=== PATIENT | female | born 1950 | race Two or more races ===

== ENCOUNTER 2018-03-25 15:00 | Outpatient (AMBR) | payer MEDICARE, MEDICAID, SELFPAY ==
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
--- NOTE | 2018-03-05 09:37 | PT.ODAYNRPT ---
PT Outpatient Daily Note Date of Service: March 05, 2018 OP Daily Note Visit Reasons: BALANCE Outpatient Physical Therapy Treatment Date: 03/05/18 Subjective: Pt reports she is walking further, around 2 miles a day and has lost weight. No falls lately. Objective: See F/S for therex NMR: parallel bar balance challenge with long airex with head turns, step over cones x15' Assessment: Balance challenged by looking up and down on uneven surface consistent with peripheral neuropathy and decreased proprioception. She catches toes on taller obstacles if she is not thinking about it. Plan: Continue per POC Length of Time (minutes) of Treatment: 30 Minutes Office Procedures PT Outpatient G-Codes Date of Service PT Date of Service: 02/18/18 G-Codes Walking & Moving Around Mobility Current Status G-Code: G8978: CJ 20-40% Mobility Status G-Code: G8979: CI 1-20% PT Procedures PT Date of Service: 02/18/18 OP PT Eval High Complex 45 minutes: Yes PT Procedures PT Date of Service: 03/05/18 Therapeutic Exercise 15 minutes: Yes Neuro Re-Education 15 Minutes: Yes
--- NOTE | 2018-03-25 16:19 | PT.ODAYNRPT ---
PT Outpatient Daily Note Date of Service: March 25, 2018 OP Daily Note Visit Reasons: BALANCE Outpatient Physical Therapy Treatment Date: 03/25/18 Subjective: No falls lately, saw provider who said to continue therapy. Objective: See F/S for therex NMR: parallel bar balance challenge with long airex with head turns, step over cones x15' Assessment: Balance challenged by looking up and down on uneven surface consistent with peripheral neuropathy and decreased proprioception. She catches toes on taller obstacles if she is not thinking about it. Plan: Continue per POC Length of Time (minutes) of Treatment: 30 Minutes Office Procedures PT Outpatient G-Codes Date of Service PT Date of Service: 02/18/18 G-Codes Walking & Moving Around Mobility Current Status G-Code: G8978: CJ 20-40% Mobility Status G-Code: G8979: CI 1-20% PT Procedures PT Date of Service: 02/18/18 OP PT Eval High Complex 45 minutes: Yes PT Procedures PT Date of Service: 03/05/18 Therapeutic Exercise 15 minutes: Yes Neuro Re-Education 15 Minutes: Yes PT Procedures PT Date of Service: 03/25/18 Therapeutic Exercise 15 minutes: Yes Neuro Re-Education 15 Minutes: Yes
== END 2018-03-25 16:00 | disposition home or self-care (01) ==
PROVIDERS: Visit Provider Orthopaedic Surgery
DX: R26.9 Unspecified abnormalities of gait and mobility (principal)
CPT/HCPCS: 97110; 97112; 97163; G8978; G8979

== ENCOUNTER 2018-04-07 16:30 | Outpatient (AMBR) | payer MEDICARE, MEDICAID, SELFPAY ==
--- NOTE | 2018-04-01 13:47 | PT.ODAYNRPT ---
PT Outpatient Daily Note Date of Service: April 01, 2018 OP Daily Note Visit Reasons: balance Outpatient Physical Therapy Treatment Date: 04/01/18 Subjective: About the same as always Objective: See F/S for therex NMR: PBar balance progression, long airex, tandem stance, step over obstacles x10' Assessment: Pt has LOB with head turns with NBOS. Plan: Continue per POC Length of Time (minutes) of Treatment: 30 Minutes Office Procedures PT Procedures PT Date of Service: 04/01/18 Therapeutic Exercise 15 minutes: Yes Neuro Re-Education 15 Minutes: Yes
--- NOTE | 2018-04-07 17:43 | PT.ODAYNRPT ---
PT Outpatient Daily Note Date of Service: April 07, 2018 OP Daily Note Visit Reasons: balance Outpatient Physical Therapy Treatment Date: 04/07/18 Subjective: Pt c/o intense R glute and posterior thigh pain that has limited walking tolerance today Objective: SEe F/S for therex MT: long axis hip distraction and PPM of hip into flexion and ERot x10' Mechanical traction: x13' L/S at 20 lbs Assessment: R LE pain seems to be consistent with lumbar radiculopathy which may also be affecting balance reactions and proprioception if she has DDD/stenosis. Good response to manual therapy of the hip and traction today to reduce LE pain. Pt may benefit from MRI of L/S. Plan: Continue per POC Length of Time (minutes) of Treatment: 40 Minutes Office Procedures PT Procedures PT Date of Service: 04/01/18 Therapeutic Exercise 15 minutes: Yes Neuro Re-Education 15 Minutes: Yes PT Procedures PT Date of Service: 04/07/18 Traction Mechanical: Yes Therapeutic Exercise 15 minutes: Yes Manual Real Estate Economist 15 minutes: Yes
--- NOTE | 2018-04-07 17:46 | PTNOTE_ITS ---
PT Outpatient Daily Note Date of Service: April 07, 2018 OP Daily Note Visit Reasons: balance Outpatient Physical Therapy Treatment Date: 04/07/18 Subjective: Pt c/o intense R glute and posterior thigh pain that has limited walking tolerance today Objective: SEe F/S for therex MT: long axis hip distraction and PPM of hip into flexion and ERot x10' Mechanical traction: x13' L/S at 20 lbs Assessment: R LE pain seems to be consistent with lumbar radiculopathy which may also be affecting balance reactions and proprioception if she has DDD/ stenosis. Good response to manual therapy of the hip and traction today to reduce LE pain. Pt may benefit from MRI of L/S. Plan: Continue per POC Length of Time (minutes) of Treatment: 40 Minutes Office Procedures PT Procedures PT Date of Service: 04/01/18 Therapeutic Exercise 15 minutes: Yes Neuro Re-Education 15 Minutes: Yes PT Procedures PT Date of Service: 04/07/18 Traction Mechanical: Yes Therapeutic Exercise 15 minutes: Yes Manual Candy Cutter Hand 15 minutes: Yes
== END 2018-04-29 23:59 ==
PROVIDERS: PCP Family Medicine; Referring Provider Family Medicine; Visit Provider Orthopaedic Surgery
DX: I10 Essential (primary) hypertension (principal)
CPT/HCPCS: 97012; 97110; 97112; 97140

== ENCOUNTER 2018-05-12 10:30 | Outpatient (AMBR) | payer MEDICARE, MEDICAID, SELFPAY ==
--- NOTE | 2018-05-05 18:30 | PT.ODS1RPT ---
PT OP Progress/Discharge Note Date of Service: May 05, 2018 Progress Note/DC Note Progress Note/Discharge Note: Progress Note Patient Information Visit Reasons: right hip pain Service Continue Service or Discharge: Continue Service Discharge Date: 05/05/18 Status Subjective: Pt reports improved balance, and that she hasn't fallen since starting therapy Objective: Tinetti score: 24/28 SL balance: R 6 seconds: L 5 seconds Tandem stance: no sway on even surfaces Assessment: Pt has attended 6/12 Rx visits and made good progress with therapy goals. She has improved SL standing balance to at least 5 seconds each. She can standard machine stitcher tandem stance for at least 10 seconds without sway but hasn't met goal of 20 seconds. Pt can stand on uneven surface for 5 seconds with sway so she hasn't met that goal of 10 seconds and would benefit from continued therapy. Plan: Continue with therapy to meet goals. Goals Achieved: See assessment Office Procedures PT Outpatient G-Codes Date of Service PT Date of Service: 05/05/18 G-Codes Walking & Moving Around Mobility Current Status G-Code: G8978: CJ 20-40% Mobility Status G-Code: G8979: CI 1-20% PT Procedures PT Date of Service: 05/05/18 Therapeutic Exercise 15 minutes: Yes Neuro Re-Education 15 Minutes: Yes
--- NOTE | 2018-05-05 18:33 | PTNOTE_ITS ---
PT OP Progress/Discharge Note Date of Service: May 05, 2018 Progress Note/DC Note Progress Note/Discharge Note: Progress Note Patient Information Visit Reasons: right hip pain Service Continue Service or Discharge: Continue Service Discharge Date: 05/05/18 Status Subjective: Pt reports improved balance, and that she hasn't fallen since starting therapy Objective: Tinetti score: 24/28 SL balance: R 6 seconds: L 5 seconds Tandem stance: no sway on even surfaces Assessment: Pt has attended 6/12 Rx visits and made good progress with therapy goals. She has improved SL standing balance to at least 5 seconds each. She can quarantine officer tandem stance for at least 10 seconds without sway but hasn't met goal of 20 seconds. Pt can stand on uneven surface for 5 seconds with sway so she hasn't met that goal of 10 seconds and would benefit from continued therapy. Plan: Continue with therapy to meet goals. Goals Achieved: See assessment Office Procedures PT Outpatient G-Codes Date of Service PT Date of Service: 05/05/18 G-Codes Walking & Moving Around Mobility Current Status G-Code: G8978: CJ 20-40% Mobility Status G-Code: G8979: CI 1-20% PT Procedures PT Date of Service: 05/05/18 Therapeutic Exercise 15 minutes: Yes Neuro Re-Education 15 Minutes: Yes
--- NOTE | 2018-05-10 11:11 | PT.ODAYNRPT ---
PT Outpatient Daily Note Date of Service: May 10, 2018 OP Daily Note Visit Reasons: right hip pain Outpatient Physical Therapy Treatment Date: 05/10/18 Subjective: Pt reports improved balance, and that she hasn't fallen since starting therapy Objective: See F/S for therex NMR: Balance challenges in parallel bars: EO/EC, head turns, NBOS, tandem stance on even and uneven surfaces x15' Assessment: Pt has improved SL standing balance to at least 5 seconds each. She can senior managing director tandem stance for at least 10 seconds without sway but hasn't met goal of 20 seconds. Pt can stand on uneven surface for 5 seconds with sway so she hasn't met that goal of 10 seconds and would benefit from continued therapy. Plan: Continue with therapy Length of Time (minutes) of Treatment: 30 Minutes Office Procedures PT Outpatient G-Codes Date of Service PT Date of Service: 05/05/18 G-Codes Walking & Moving Around Mobility Current Status G-Code: G8978: CJ 20-40% Mobility Status G-Code: G8979: CI 1-20% PT Procedures PT Date of Service: 05/05/18 Therapeutic Exercise 15 minutes: Yes Neuro Re-Education 15 Minutes: Yes PT Procedures PT Date of Service: 05/10/18 Therapeutic Exercise 15 minutes: Yes Neuro Re-Education 15 Minutes: Yes
--- NOTE | 2018-05-12 15:20 | PT.ODS1RPT ---
PT OP Progress/Discharge Note Date of Service: May 12, 2018 Progress Note/DC Note Progress Note/Discharge Note: DC Note Patient Information Visit Reasons: right hip pain Service Continue Service or Discharge: Discharge Discharge Date: 05/12/18 Certification Date Certification Dates: 02/18/18 to 05/19/18 Status Subjective: Pt reports improved balance, and that she hasn't fallen since starting therapy Objective: Objective: Tinetti score: 24/28 SL balance: R 6 seconds: L 5 seconds Tandem stance: no sway on even surfaces Assessment: Pt has attended 8/ Rx visits and made good progress with therapy goals. She has improved SL standing balance to at least 5 seconds each. She can customer service administrator tandem stance for at least 20 seconds without sway and has met goal of 20 seconds. Pt can stand on uneven surface for 10 seconds without sway she has met that goal of 10 seconds. Plan: D/C with HEP Office Procedures PT Outpatient G-Codes Date of Service PT Date of Service: 05/05/18 G-Codes Walking & Moving Around Mobility Current Status G-Code: G8978: CJ 20-40% Mobility Status G-Code: G8979: CI 1-20% PT Outpatient G-Codes Date of Service PT Date of Service: 05/12/18 G-Codes Walking & Moving Around Mobility Status G-Code: G8979: CI 1-20% Mobility DC Status G-Code: G8980: CI 1-20% PT Procedures PT Date of Service: 05/05/18 Therapeutic Exercise 15 minutes: Yes Neuro Re-Education 15 Minutes: Yes PT Procedures PT Date of Service: 05/10/18 Therapeutic Exercise 15 minutes: Yes Neuro Re-Education 15 Minutes: Yes PT Procedures PT Date of Service: 05/12/18 Therapeutic Exercise 15 minutes: Yes Neuro Re-Education 15 Minutes: Yes
--- NOTE | 2018-05-12 15:23 | PTNOTE_ITS ---
PT OP Progress/Discharge Note Date of Service: May 12, 2018 Progress Note/DC Note Progress Note/Discharge Note: DC Note Patient Information Visit Reasons: right hip pain Service Continue Service or Discharge: Discharge Discharge Date: 05/12/18 Certification Date Certification Dates: 02/18/18 to 05/19/18 Status Subjective: Pt reports improved balance, and that she hasn't fallen since starting therapy Objective: Objective: Tinetti score: 24/28 SL balance: R 6 seconds: L 5 seconds Tandem stance: no sway on even surfaces Assessment: Pt has attended 8/ Rx visits and made good progress with therapy goals. She has improved SL standing balance to at least 5 seconds each. She can marshmallow machine operator tandem stance for at least 20 seconds without sway and has met goal of 20 seconds. Pt can stand on uneven surface for 10 seconds without sway she has met that goal of 10 seconds. Plan: D/C with HEP Office Procedures PT Outpatient G-Codes Date of Service PT Date of Service: 05/05/18 G-Codes Walking & Moving Around Mobility Current Status G-Code: G8978: CJ 20-40% Mobility Status G-Code: G8979: CI 1-20% PT Outpatient G-Codes Date of Service PT Date of Service: 05/12/18 G-Codes Walking & Moving Around Mobility Status G-Code: G8979: CI 1-20% Mobility DC Status G-Code: G8980: CI 1-20% PT Procedures PT Date of Service: 05/05/18 Therapeutic Exercise 15 minutes: Yes Neuro Re-Education 15 Minutes: Yes PT Procedures PT Date of Service: 05/10/18 Therapeutic Exercise 15 minutes: Yes Neuro Re-Education 15 Minutes: Yes PT Procedures PT Date of Service: 05/12/18 Therapeutic Exercise 15 minutes: Yes Neuro Re-Education 15 Minutes: Yes
== END 2018-05-29 23:59 | disposition home or self-care (01) ==
PROVIDERS: PCP Family Medicine; Referring Provider Family Medicine; Visit Provider Orthopaedic Surgery
DX: I10 Essential (primary) hypertension (principal)
CPT/HCPCS: 97110; 97112; G8978; G8979; G8980

== ENCOUNTER 2021-05-24 10:29 | Outpatient (AMBR) | payer MEDICARE, MEDICAID, SELFPAY ==
--- NOTE | 2021-05-16 12:51 | PT.OIERPT ---
PT OP Initial Eval Patient Information Visit Reasons: FRACTURE OF DISTAL END OF LEFT ULNA Medical Diagnosis: S52.602A Treatment Dx #1: Left Wrist Mobility Deficits Treatment Dx #2: Left Wrist Weakness Start of Care: 05/16/21 Date of Onset: 04/02/21 Initial Assessment Subjective Pt is a 70 y/o female s/p left distal ulna and radius ORIF 04/02/21 after she fell and fracture both bones while on vacation in [place]. Pt still has pain (6/10) with activities. Pt has limitation with gripping, lifting, self care, cooking, cleaning, chores, recreational activtiies, and performing normal ADLs. Objective Left Wrist AROM Flexion: 34 deg Extension: 42 deg Supination: 41 deg Pronation: 74 deg Ulnar Deviation: 8 deg Radial Deviation: 18 deg Left Wrist MMTs: grossly 3-/5 Left UE AROM: all motions are WFL Left Shoulder MMTs: grossly 3/5 Instructional Support Services Director Strength R: 23 lbs L: 19 lbs Assessment Pt demonstrate left wrist mobility and strength deficits s/p surgery leading to decline function. Pt will benefit from physical therapy to increase ROM, strength, and work on functional strength. Short Term and Long-Term Goals 1) Increase left assembler lay ups strength to 23 lbs in 6 wks to be able to perform gripping activities 2) Increase left wrist AROM WFL in 6 wks to be able to perform self care activities 3) Increase left wrist MMTs grossly to 3+/5 in 6 wks to be able to perform chores 4) Decrase pain to 2/10 in 6 wks to be able to perform recreational activities 5) Indep with HEP Treatment Plan 1) Manual Therapy 2) Therapeutic Activities 3) Therapeutic Exercises 4) Modalities (ice, heat) Frequency and Duration 2 x wk for 6 wks Certification Dates: 05/16/21 to 08/16/21 Office Procedures PT Procedures PT Date of Service: 05/16/21 OP PT Eval Mod Complex 30 minutes: Yes
--- NOTE | 2021-05-22 12:52 | PT.ODAYNRPT ---
PT Outpatient Daily Note Date of Service: 05/22/21 OP Daily Note Visit Reasons: FRACTURE OF DISTAL END OF LEFT ULNA Outpatient Physical Therapy Treatment Date: 05/22/21 Subjective: Pt will be seeing the surgeon in a few days. Pt's wrist feesl pretty good. Objective: Please see flow chart for list of ther ex performed Assessment: tolerate exercises without increase wrist pain Plan: Continue with PT Length of Time (minutes) of Treatment: 30 Minutes Office Procedures PT Procedures PT Date of Service: 05/22/21 Therapeutic Exercise 30 minutes: Yes PT Procedures PT Date of Service: 05/16/21 OP PT Eval Mod Complex 30 minutes: Yes
--- NOTE | 2021-05-24 11:38 | PT.ODAYNRPT ---
PT Outpatient Daily Note Date of Service: 05/24/21 OP Daily Note Visit Reasons: FRACTURE OF DISTAL END OF LEFT ULNA Outpatient Physical Therapy Treatment Date: 05/24/21 Subjective: Pt's wrist feels good. Pt [place] the night [place] Objective: Please see flow chart for list of ther ex performed Assessment: tolerate exercises performed Plan: Continue with PT Length of Time (minutes) of Treatment: 30 Minutes Office Procedures PT Procedures PT Date of Service: 05/22/21 Therapeutic Exercise 30 minutes: Yes PT Procedures PT Date of Service: 05/24/21 Therapeutic Exercise 30 minutes: Yes PT Procedures PT Date of Service: 05/16/21 OP PT Eval Mod Complex 30 minutes: Yes
== END 2021-05-29 23:59 | disposition home or self-care (01) ==
PROVIDERS: PCP Internal Medicine; Referring Provider Internal Medicine; Visit Provider Surgery Surgery of the Hand
DX: S52.602D Unspecified fracture of lower end of left ulna, subsequent encounter for closed fracture with routine healing (principal); M25.532 Pain in left wrist; R53.1 Weakness; W19.XXXD Unspecified fall, subsequent encounter
CPT/HCPCS: 97110; 97162

== ENCOUNTER 2021-06-26 11:33 | Outpatient (AMBR) | payer MEDICARE, MEDICAID, SELFPAY ==
--- NOTE | 2021-06-04 11:25 | PT.ODAYNRPT ---
PT Outpatient Daily Note Date of Service: 06/04/21 OP Daily Note Visit Reasons: FRACTURE OF DISTAL END OF LEFT ULNA Outpatient Physical Therapy Treatment Date: 06/04/21 Subjective: Pt stated little sore from last time, but good otherwise I can move it a little more than last time Objective: Please see flowsheet for therex performed Assessment: pt performed therex well with increased motion in wrist supination and pronation. Pt showed good strength this visit with tolerating increase resistance with wrist extension exercise progressing from yellow to red theraputty. Pt's is making progress towards her strength and ROM each session. Plan: Continue with POC Length of Time (minutes) of Treatment: 30 Minutes Office Procedures PT Procedures PT Date of Service: 06/04/21 Therapeutic Exercise 30 minutes: Yes
--- NOTE | 2021-06-06 11:52 | PT.ODAYNRPT ---
PT Outpatient Daily Note Date of Service: 06/06/21 OP Daily Note Visit Reasons: FRACTURE OF DISTAL END OF LEFT ULNA Outpatient Physical Therapy Treatment Date: 06/06/21 Subjective: Pt's wrist feels good no pain today. Objective: Please see flow chart for list of ther ex performed Assessment: added more resistance and change to red resistance with all hand/wrist exercise with good tolerance. Plan: Continue with PT Length of Time (minutes) of Treatment: 30 Minutes Office Procedures PT Procedures PT Date of Service: 06/04/21 Therapeutic Exercise 30 minutes: Yes PT Procedures PT Date of Service: 06/06/21 Therapeutic Exercise 30 minutes: Yes
--- NOTE | 2021-06-14 11:29 | PT.ODAYNRPT ---
PT Outpatient Daily Note Date of Service: 06/14/21 OP Daily Note Visit Reasons: FRACTURE OF DISTAL END OF LEFT ULNA Outpatient Physical Therapy Treatment Date: 06/14/21 Subjective: Pt's wrist feels good no pain today. Objective: Please see flow chart for list of ther ex performed AROM L wrist: Flexion: 55 deg Extension: 50 deg Assessment: Pt able to do green gripper today without pain in the wrist and she can make a full fist. Good fine motor control with manipulating objects and with therex. Plan: Continue with POC Length of Time (minutes) of Treatment: 30 Minutes Office Procedures PT Procedures PT Date of Service: 06/04/21 Therapeutic Exercise 30 minutes: Yes PT Procedures PT Date of Service: 06/06/21 Therapeutic Exercise 30 minutes: Yes PT Procedures PT Date of Service: 06/14/21 Therapeutic Exercise 30 minutes: Yes
--- NOTE | 2021-06-18 15:39 | PT.ODAYNRPT ---
PT Outpatient Daily Note Date of Service: 06/18/21 OP Daily Note Visit Reasons: FRACTURE OF DISTAL END OF LEFT ULNA Outpatient Physical Therapy Treatment Date: 06/18/21 Subjective: Pt's wrist feels good little pain today. Increased pain with dumbbell pronation/supination Objective: Please see flow chart for list of ther ex performed AROM L wrist: Flexion: 55 deg Extension: 50 deg Assessment: Pt able to do green gripper today without pain in the wrist and she can make a full fist. Good fine motor control with manipulating objects and with therex. Plan: Continue with POC Length of Time (minutes) of Treatment: 30 Minutes Office Procedures PT Procedures PT Date of Service: 06/04/21 Therapeutic Exercise 30 minutes: Yes PT Procedures PT Date of Service: 06/06/21 Therapeutic Exercise 30 minutes: Yes PT Procedures PT Date of Service: 06/14/21 Therapeutic Exercise 30 minutes: Yes
--- NOTE | 2021-06-18 15:47 | PT.ODS1RPT ---
PT OP Progress/Discharge Note Date of Service: 06/18/21 Progress Note/DC Note Progress Note/Discharge Note: Progress Note Patient Information Visit Reasons: FRACTURE OF DISTAL END OF LEFT ULNA Service Continue Service or Discharge: Continue Service Status Subjective: Pt is doing ADL's with low wrist pain. Increased pain with dumbbell pronation/supination. The ulnar styloid isn't TTP but hurts with (resisted radial deviation) Objective: L wrist ArOM: Strength: Flexion: 34 deg 4-/5 Extension: 52 deg 4-/5 Supination: 80 deg 4-/5 Pronation: 90 deg 4-/5 Assessment: Pt has attended the eval and 6 Rx visits and made progress with therapy goals. Pt has improved wrist extension ROM since the evaluation and strength has improved in all planes of motion. Pt would benefit from continued therapy to improve ROM into wrist flexion and strength of wrist to meet goals. Plan: Continue per POC Office Procedures PT Procedures PT Date of Service: 06/04/21 Therapeutic Exercise 30 minutes: Yes PT Procedures PT Date of Service: 06/06/21 Therapeutic Exercise 30 minutes: Yes PT Procedures PT Date of Service: 06/14/21 Therapeutic Exercise 30 minutes: Yes PT Procedures PT Date of Service: 06/18/21 Therapeutic Exercise 30 minutes: Yes
--- NOTE | 2021-06-26 17:12 | PT.ODAYNRPT ---
PT Outpatient Daily Note Date of Service: 06/26/21 OP Daily Note Visit Reasons: FRACTURE OF DISTAL END OF LEFT ULNA Outpatient Physical Therapy Treatment Date: 06/26/21 Subjective: Pt is doing ADL's with low wrist pain. Increased pain with dumbbell pronation/supination. The ulnar styloid isn't TTP but hurts with (resisted radial deviation) Objective: See F/S for therex MT: STM dorsal wrist and PPm into wrist flexion to first resistance x10' total Diving Instructor strength: L 20 lbs R: 18 lbs Assessment: Pt has ROM limitations into wrist flexion and TTP of dorsal joint line but unaffected wrist flexion isn't much greater than L and fruit harvest machine operator strength is actually better on L than R. Plan: Continue per POC Length of Time (minutes) of Treatment: 30 Minutes Office Procedures PT Procedures PT Date of Service: 06/04/21 Therapeutic Exercise 30 minutes: Yes PT Procedures PT Date of Service: 06/06/21 Therapeutic Exercise 30 minutes: Yes PT Procedures PT Date of Service: 06/14/21 Therapeutic Exercise 30 minutes: Yes PT Procedures PT Date of Service: 06/18/21 Therapeutic Exercise 30 minutes: Yes PT Procedures PT Date of Service: 06/26/21 Therapeutic Exercise 15 minutes: Yes Manual Head Animal Trainer 15 minutes: Yes
== END 2021-06-29 23:59 | disposition home or self-care (01) ==
PROVIDERS: PCP Internal Medicine; Referring Provider Internal Medicine; Visit Provider Internal Medicine
DX: S52.602D Unspecified fracture of lower end of left ulna, subsequent encounter for closed fracture with routine healing (principal); M25.532 Pain in left wrist; R53.1 Weakness; X58.XXXD Exposure to other specified factors, subsequent encounter
CPT/HCPCS: 97110; 97140

== ENCOUNTER 2021-07-11 10:56 | Outpatient (AMBR) | payer MEDICARE, MEDICAID, SELFPAY ==
--- NOTE | 2021-07-02 16:08 | PT.OIERPT ---
PT OP Initial Eval Patient Information Visit Reasons: FRACTURE OF DISTAL END OF LEFT ULNA Start of Care: 07/02/21
--- NOTE | 2021-07-02 18:01 | PT.ODAYNRPT ---
PT Outpatient Daily Note Date of Service: 07/02/21 OP Daily Note Visit Reasons: FRACTURE OF DISTAL END OF LEFT ULNA Outpatient Physical Therapy Treatment Date: 07/02/21 Subjective: The hand and wrist are working with ADL's but it doesn't flex very much. Objective: See F/S for therex MT: PPM into wrist flexion with overpressure x7' Assessment: Pt has improved wrist strength and ROM into extension but flexion is limited. Improved PROM into wrist flexion today to almost equal the R wrist. Plan: continue per POC Length of Time (minutes) of Treatment: 30 Minutes Office Procedures PT Procedures PT Date of Service: 07/02/21 Therapeutic Exercise 30 minutes: Yes
--- NOTE | 2021-07-05 11:55 | PTNOTE_ITS ---
PT Outpatient Daily Note Date of Service: 07/05/2021 OP Daily Note Visit Reasons: FRACTURE OF DISTAL END OF LEFT ULNA Outpatient Physical Therapy Treatment Date: 07/05/21 Subjective: pt states she has difficulty with flexing the wrist and is not sure the reason. Objective: see flow sheet. Assessment: pt able to perform the wrist using 1# DB but after a few reps she compensates with elbow activation. she had no complaints with the weight during all ther ex. she did have more difficulty with thera bar exercise due to wea kness. attempted to isolate the L hand with thera bar exercise but not able to fully perform the motion. Plan: continue POC per PT. Length of Time (minutes) of Treatment: 30 Minutes CIRCUIT RECORDER Service Modifier Method I: Divide the number of min of care provided by the CIRCUIT RECORDER/SUPERVISOR PARACHUTE MANUFACTURING by the total min of care provided then multiply by 100. If greater than 11 percent modifier is required. Method II: Divide the total time of care provided to patient by 10 (round to the nearest whole number) and add 1 min. to set the minimum time requirement. If treatment total was 60 min., then 10% of 6 min Did CIRCUIT RECORDER provide more than 10% of the care?: Yes PT CQ modifier applied: CQ Modifier applied Office Procedures PT Procedures PT Date of Service: 07/02/21 Therapeutic Exercise 30 minutes: Yes PT Procedures PT Date of Service: 07/05/21 Therapeutic Exercise 30 minutes: Yes
--- NOTE | 2021-07-09 12:24 | PT.ODAYNRPT ---
PT Outpatient Daily Note Date of Service: 07/09/21 OP Daily Note Visit Reasons: FRACTURE OF DISTAL END OF LEFT ULNA Outpatient Physical Therapy Treatment Date: 07/02/21 Subjective: The hand and wrist are working with ADL's but it doesn't flex it very much. Objective: See F/S for therex Assessment: Pt has improved wrist strength and ROM into extension but flexion is limited. Improved PROM into wrist flexion today to almost equal the R wrist. Plan: continue per POC Length of Time (minutes) of Treatment: 30 Minutes Office Procedures PT Procedures PT Date of Service: 07/02/21 Therapeutic Exercise 30 minutes: Yes PT Procedures PT Date of Service: 07/09/21 Therapeutic Exercise 30 minutes: Yes PT Procedures PT Date of Service: 07/05/21 Therapeutic Exercise 30 minutes: Yes
--- NOTE | 2021-07-11 15:15 | PT.ODS1RPT ---
PT OP Progress/Discharge Note Date of Service: 07/11/21 Progress Note/DC Note Progress Note/Discharge Note: DC Note Patient Information Visit Reasons: FRACTURE OF DISTAL END OF LEFT ULNA Service Continue Service or Discharge: Discharge Discharge Date: 07/11/21 Status Subjective: Pt is doing ADL's with low wrist pain. Increased pain with dumbbell pronation/supination. The ulnar styloid isn't TTP but hurts with (resisted radial deviation) Objective: L wrist ArOM: Strength: Flexion: 34 deg 4-/5 Extension: 70 deg 4-/5 Supination: 80 deg 4-/5 Pronation: 90 deg 4-/5 Associate Financial Representative strength: R: 15 lbs, L: 25 lbs Assessment: Pt has attended the eval and 11 Rx visits and has made progress with therapy goals. Pt has significantly improved wrist extension ROM since the evaluation and strength has improved in all planes of motion especially ceo and president strength. L wrist flexion is about the same as the R. Plan: D/C with [facility] Office Procedures PT Procedures PT Date of Service: 07/02/21 Therapeutic Exercise 30 minutes: Yes PT Procedures PT Date of Service: 07/09/21 Therapeutic Exercise 30 minutes: Yes PT Procedures PT Date of Service: 07/05/21 Therapeutic Exercise 30 minutes: Yes PT Procedures PT Date of Service: 07/11/21 Therapeutic Exercise 30 minutes: Yes
== END 2021-07-30 23:59 | disposition home or self-care (01) ==
PROVIDERS: PCP Internal Medicine; Referring Provider Internal Medicine; Visit Provider Internal Medicine
DX: S52.602D Unspecified fracture of lower end of left ulna, subsequent encounter for closed fracture with routine healing (principal); M25.532 Pain in left wrist; R53.1 Weakness; W19.XXXD Unspecified fall, subsequent encounter
CPT/HCPCS: 97110

== ENCOUNTER → 2024-10-03 | Outpatient (CLI) | payer MEDICARE, BC, SELFPAY ==
[2024-10-03 11:56] LABS: Albumin, Serum 3.9 gm/dL (3.4-4.8); Anion Gap 6 (7-16); BUN/Creatinine Ratio 15 Ratio (12-20); Blood Urea Nitrogen 17 mg/dL (9-23); Calcium 8.9 mg/dL (8.3-10.6); Carbon Dioxide 27.8 mMol/L (20.0-31.0); Chloride 104 mMol/L (98-107); Creatinine (Component) 1.1 mg/dL (0.6-1.3); Glucose 165 mg/dL (74-106); Osmolality,Calculated 281 (275-295); Phosphorous 3.3 mg/dL (2.4-5.1); Potassium 4.5 mMol/L (3.4-5.1); Sodium 138 mMol/L (136-145); eGFR 52 See Note
== END | disposition home or self-care (01) ==
PROVIDERS: PCP Internal Medicine; Referring Provider Internal Medicine Cardiovascular Disease; Visit Provider Internal Medicine Cardiovascular Disease
DX: I20.89 Other forms of angina pectoris (principal)
CPT/HCPCS: 36415; 80069

== ENCOUNTER → 2024-10-03 | Outpatient (CLI) | payer MEDICARE, BC, SELFPAY | END | disposition home or self-care (01) | PROVIDERS: PCP Internal Medicine; Referring Provider Internal Medicine; Visit Provider Student in an Organized Health Care Education/Training Program | DX: I87.311 Chronic venous hypertension (idiopathic) with ulcer of right lower extremity (principal); L97.311 Non-pressure chronic ulcer of right ankle limited to breakdown of skin; L97.511 Non-pressure chronic ulcer of other part of right foot limited to breakdown of skin; I10 Essential (primary) hypertension; E11.621 Type 2 diabetes mellitus with foot ulcer; Z79.4 Long term (current) use of insulin; I73.9 Peripheral vascular disease, unspecified; E03.9 Hypothyroidism, unspecified | CPT/HCPCS: 99213; G0463 ==

== ENCOUNTER → 2024-10-12 | Outpatient (CLI) | payer MEDICARE, BC, SELFPAY ==
[2024-10-12 13:17] LABS: Basophils % (Auto) 0 % (0-2.5); Eosinophils % (Auto) 0 % (0-10); Hematocrit 29.1 % (36.0-46.0); Hemoglobin 9.3 g/dL (12.0-16.0); Immature Granulocytes % (Auto) 1 % (0-0); Immature Granulocytes Auto 0.08 Thou/mm3 (0.00-0.00); Lymphocytes # (Auto) 2.8 Thou/mm3 (1.0-4.8); Lymphocytes % (Auto) 19 % (10-50); Mean Corpuscular Hemoglobin 31.5 pg (25.0-35.0); Mean Corpuscular Volume 99 fL (80-100); Monocytes # (Auto) 1.2 Thou/mm3 (0.0-0.8); Monocytes % (Auto) 9 % (0-12); Neutrophils # (Auto) 10.3 Thou/mm3 (1.8-7.7); Neutrophils % (Auto) 71 % (37-80); Nucleated Red Blood Cell % 0 /100 WBC (0); Platelet Count 338 Thou/mm3 (140-440); RDW Standard Deviation 53.8 fL (36.4-46.3); Red Blood Count 2.95 Miln/mm3 (4.00-5.20); White Blood Count 14.5 Thou/mm3 (3.6-11.0)
== END | disposition home or self-care (01) ==
LOC: COPL 12:14
PROVIDERS: PCP Internal Medicine; Referring Provider Nurse Practitioner Family; Visit Provider Nurse Practitioner Family
DX: R10.31 Right lower quadrant pain (principal)
CPT/HCPCS: 36415; 85025

== ENCOUNTER 2024-10-20 11:30 | Outpatient (RCR) | payer MEDICARE, BC, SELFPAY ==
--- NOTE | 2024-10-03 13:26 | PT.ODAYNRPT ---
PT Outpatient Daily Note OP Daily Note Outpatient Physical Therapy Treatment Date: 10/03/24 Visit Reasons: Weakness of both lower extremities Subjective: Pt walks 10x around her apartment complex. Pt mention her legs continues to hurt and denies of any back pain Objective: Please see flow chart for list of ther ex performed Assessment: cues to pace with exercises to conserve energy and decrease BLE fatigue. Plan: Continue with PT Length of Time (minutes) of Treatment: 30 Minutes Procedure Charges Therapeutic Exercise 30 minutes: Yes
--- NOTE | 2024-10-05 10:46 | PTNOTE_ITS ---
PT Outpatient Daily Note OP Daily Note Outpatient Physical Therapy Treatment Date: 10/05/24 Visit Reasons: Weakness of both lower extremities Subjective: No new concerns or complaints. Objective: Please see flow sheet for ther ex list. Assessment: Interventions given alternating supine, sitting and standing to maximize pt participation. Near end of session pt c/o R ankle pain. Plan: Continue with POC. Length of Time (minutes) of Treatment: 30 Minutes EVIDENCE TECHNICIAN Service Modifier Method I: Divide the number of min of care provided by the EVIDENCE TECHNICIAN/JULIETH by the total min of care provided then multiply by 100. If greater than 11 percent modifier is required. Method II: Divide the total time of care provided to patient by 10 (round to the nearest whole number) and add 1 min. to set the minimum time requirement. If treatment total was 60 min., then 10% of 6 min PT CQ modifier applied: CQ Modifier applied Procedure Charges Therapeutic Exercise 30 minutes: Yes
--- NOTE | 2024-10-11 13:28 | PT.ODAYNRPT ---
PT Outpatient Daily Note OP Daily Note Outpatient Physical Therapy Treatment Date: 10/11/24 Visit Reasons: Weakness of both lower extremities Subjective: No new complaints or concerns. Objective: Please see flow sheet for ther ex list. Assessment: Pt performed STS with mod HIDE EXAMINER, pt not able to perform without UE assist. Plan: Continue with POC. Assess response to treatment. Length of Time (minutes) of Treatment: 30 Minutes PRIVATE BRANCH EXCHANGE SERVICE ADVISOR Service Modifier Method I: Divide the number of min of care provided by the PRIVATE BRANCH EXCHANGE SERVICE ADVISOR/MANAGER CASE by the total min of care provided then multiply by 100. If greater than 11 percent modifier is required. Method II: Divide the total time of care provided to patient by 10 (round to the nearest whole number) and add 1 min. to set the minimum time requirement. If treatment total was 60 min., then 10% of 6 min PT CQ modifier applied: CQ Modifier applied Procedure Charges Therapeutic Exercise 30 minutes: Yes
--- NOTE | 2024-10-13 11:41 | PT.ODAYNRPT ---
PT Outpatient Daily Note OP Daily Note Outpatient Physical Therapy Treatment Date: 10/13/24 Visit Reasons: Weakness of both lower extremities Subjective: Pt content to share that she can walk short distance at home without FWW. Objective: Please see flow sheet for ther ex list. Assessment: Pt demonstrates increase endurance with closed chain interventions indicated by less rest breaks and no WHEEL AND AXLE INSPECTOR with GT in bars. Plan: Continue with POC. Length of Time (minutes) of Treatment: 30 Minutes RF DESIGN ENGINEER Service Modifier Method I: Divide the number of min of care provided by the RF DESIGN ENGINEER/PROCESS ENVIRONMENTAL TECHNICIAN by the total min of care provided then multiply by 100. If greater than 11 percent modifier is required. Method II: Divide the total time of care provided to patient by 10 (round to the nearest whole number) and add 1 min. to set the minimum time requirement. If treatment total was 60 min., then 10% of 6 min PT CQ modifier applied: CQ Modifier applied Procedure Charges Therapeutic Exercise 30 minutes: Yes
--- NOTE | 2024-10-17 13:32 | PTNOTE_ITS ---
PT Outpatient Daily Note OP Daily Note Outpatient Physical Therapy Treatment Date: 10/17/24 Visit Reasons: Weakness of both lower extremities Subjective: Pt reports she feels some progress with LE strength but notices her R foot pain limits her when it comes to ambulating longer distance. Objective: Please see flow sheet for ther ex list. Assessment: Pt performed increase reps for GT in parallel bars with no ELECTRONICS PROCESSOR indicating progress. Pt educated on bringing tennis shoes for safety, pt comes to PT with oversized slippers increase fall risk. Plan: Continue with pOC. Length of Time (minutes) of Treatment: 30 Minutes DRIVER LICENSE AGENT Service Modifier Method I: Divide the number of min of care provided by the DRIVER LICENSE AGENT/JULIETH by the total min of care provided then multiply by 100. If greater than 11 percent modifier is required. Method II: Divide the total time of care provided to patient by 10 (round to the nearest whole number) and add 1 min. to set the minimum time requirement. If treatment total was 60 min., then 10% of 6 min PT CQ modifier applied: CQ Modifier applied Procedure Charges Therapeutic Exercise 30 minutes: Yes
--- NOTE | 2024-10-20 13:02 | PT.ODAYNRPT ---
PT Outpatient Daily Note OP Daily Note Outpatient Physical Therapy Treatment Date: 10/20/24 Visit Reasons: Weakness of both lower extremities Subjective: Pt reports she is having more pain on her R foot today, feels it might be due to the cold weather. Objective: Please see flow sheet for ther ex list. Assessment: Pt demonstrates decrease endurance and poor activity tolerance due to pain in R ankle. Plan: Continue with POC. Length of Time (minutes) of Treatment: 30 Minutes ELECTRICAL SUPERINTENDENT Service Modifier Method I: Divide the number of min of care provided by the ELECTRICAL SUPERINTENDENT/LEAD CASTER by the total min of care provided then multiply by 100. If greater than 11 percent modifier is required. Method II: Divide the total time of care provided to patient by 10 (round to the nearest whole number) and add 1 min. to set the minimum time requirement. If treatment total was 60 min., then 10% of 6 min PT CQ modifier applied: CQ Modifier applied Procedure Charges Therapeutic Exercise 30 minutes: Yes
== END 2024-10-29 23:59 | disposition home or self-care (01) ==
LOC: CPTX 11:30
PROVIDERS: PCP Internal Medicine; Referring Provider Internal Medicine; Visit Provider Internal Medicine
DX: R53.1 Weakness (principal); R29.898 Other symptoms and signs involving the musculoskeletal system; R26.2 Difficulty in walking, not elsewhere classified; M51.369 Other intervertebral disc degeneration, lumbar region without mention of lumbar back pain or lower extremity pain
CPT/HCPCS: 97110

== ENCOUNTER → 2024-10-31 | Outpatient (CLI) | payer MEDICARE, BC, SELFPAY | END | disposition home or self-care (01) | LOC: SWHD 09:25 | PROVIDERS: PCP Internal Medicine; Referring Provider Internal Medicine; Visit Provider Student in an Organized Health Care Education/Training Program | DX: I87.311 Chronic venous hypertension (idiopathic) with ulcer of right lower extremity (principal); L97.318 Non-pressure chronic ulcer of right ankle with other specified severity; I10 Essential (primary) hypertension; E11.621 Type 2 diabetes mellitus with foot ulcer; Z79.4 Long term (current) use of insulin; I73.9 Peripheral vascular disease, unspecified; E03.9 Hypothyroidism, unspecified | CPT/HCPCS: 99213; G0463 ==

== ENCOUNTER → 2024-11-07 | Outpatient (CLI) | payer MEDICARE, BC, SELFPAY | END | disposition home or self-care (01) | LOC: SWHD 09:24 | PROVIDERS: PCP Internal Medicine; Referring Provider Internal Medicine; Visit Provider Surgery | DX: I87.311 Chronic venous hypertension (idiopathic) with ulcer of right lower extremity (principal); L97.312 Non-pressure chronic ulcer of right ankle with fat layer exposed; I10 Essential (primary) hypertension; E11.621 Type 2 diabetes mellitus with foot ulcer; Z79.4 Long term (current) use of insulin; I73.9 Peripheral vascular disease, unspecified; E03.9 Hypothyroidism, unspecified | CPT/HCPCS: 11042; A9270 ==

== ENCOUNTER → 2024-11-14 | Outpatient (CLI) | payer MEDICARE, BC, SELFPAY | END | disposition home or self-care (01) | LOC: SWHD 09:29 | PROVIDERS: PCP Internal Medicine; Referring Provider Internal Medicine; Visit Provider Student in an Organized Health Care Education/Training Program | DX: I87.311 Chronic venous hypertension (idiopathic) with ulcer of right lower extremity (principal); L97.312 Non-pressure chronic ulcer of right ankle with fat layer exposed; I10 Essential (primary) hypertension; E11.621 Type 2 diabetes mellitus with foot ulcer; Z79.4 Long term (current) use of insulin; I73.9 Peripheral vascular disease, unspecified; E03.9 Hypothyroidism, unspecified | CPT/HCPCS: 11042; A9270 ==

== ENCOUNTER 2024-11-17 13:00 | Outpatient (RCR) | payer MEDICARE, BC, SELFPAY ==
--- NOTE | 2024-11-01 10:52 | PT.ODAYNRPT ---
PT Outpatient Daily Note OP Daily Note Outpatient Physical Therapy Treatment Date: 11/01/24 Visit Reasons: weakness of both lower extremities Subjective: Ptg reports feeling stronger in her legs and more confident when walking but still is limited due to R ankle pain. Pt shared that she received injection in her ankle few weeks ago but did not help. Objective: Please see flow sheet for ther ex list. Assessment: Pt performed hurdles exercise with minimal to no RICKSHAW DRIVER. Plan: Assess response to treatment. Length of Time (minutes) of Treatment: 30 Minutes EXECUTIVE STEWARD Service Modifier Method I: Divide the number of min of care provided by the EXECUTIVE STEWARD/JULIETH by the total min of care provided then multiply by 100. If greater than 11 percent modifier is required. Method II: Divide the total time of care provided to patient by 10 (round to the nearest whole number) and add 1 min. to set the minimum time requirement. If treatment total was 60 min., then 10% of 6 min PT CQ modifier applied: CQ Modifier applied Procedure Charges Therapeutic Exercise 30 minutes: Yes
--- NOTE | 2024-11-03 11:08 | PT.ODAYNRPT ---
PT Outpatient Daily Note OP Daily Note Outpatient Physical Therapy Treatment Date: 11/03/24 Visit Reasons: weakness of both lower extremities Subjective: Pt reports she feels more confident walking short distance without AD. Objective: Please see flow sheet for ther ex list. Assessment: Pt demonstrates increase endurance indicated by decrease seated rest breaks during closed chain interventions. Plan: Continue with POC. Length of Time (minutes) of Treatment: 30 Minutes HIGH SCHOOL MUSIC TEACHER Service Modifier Method I: Divide the number of min of care provided by the HIGH SCHOOL MUSIC TEACHER/JULIETH by the total min of care provided then multiply by 100. If greater than 11 percent modifier is required. Method II: Divide the total time of care provided to patient by 10 (round to the nearest whole number) and add 1 min. to set the minimum time requirement. If treatment total was 60 min., then 10% of 6 min PT CQ modifier applied: CQ Modifier applied Procedure Charges Therapeutic Exercise 30 minutes: Yes
--- NOTE | 2024-11-08 13:43 | PT.ODS1RPT ---
PT OP Progress/Discharge Note Date of Service: 11/08/24 Progress Note/DC Note Progress Note/Discharge Note: Progress Note Patient Information Visit Reasons: weakness of both lower extremities Medical Diagnosis: R29.898 Treatment Dx #1: BLE Weakness Service Continue Service or Discharge: Continue Service Status Subjective: Pt's legs still feels weak. Pt has been able to drive, stand, and walk with less limitation. Pt denies of any falls recently. Pt wants to continue to work on endurance and BLE strength. Objective: BLE AROM: all motions are WNL BLE MMTs: grossly 3+/5 Sit-Stand: 9 reps Assessment: Pt demosntrate functional BLE strength, however, no changes with overall endurance leading to difficulty with prolonged activities. Pt has not met set goals and will continue to benefit from physical therapy; thank you for your referrals. Plan: Continue with PT/POC and add 6 sessions (2 x wk for 3 wks) Procedure Charges Therapeutic Exercise 30 minutes: Yes
--- NOTE | 2024-11-10 12:55 | PT.ODAYNRPT ---
PT Outpatient Daily Note OP Daily Note Outpatient Physical Therapy Treatment Date: 11/10/24 Visit Reasons: weakness of both lower extremities Subjective: Pt's legs are okay. Pt wants to work on her balance. Pt mentioned lately she's been able to walk intermittently without her 4ww inside the house. Objective: Please see flow chart for list of ther ex perfromed Assessment: slight improvement with tandem walking, however, still intermittently use her fingers to help with balance Plan: Continue with PT Length of Time (minutes) of Treatment: 30 Minutes Procedure Charges Therapeutic Exercise 30 minutes: Yes
--- NOTE | 2024-11-15 11:24 | PTNOTE_ITS ---
PT Outpatient Daily Note OP Daily Note Outpatient Physical Therapy Treatment Date: 11/15/24 Visit Reasons: weakness of both lower extremities Subjective: Pt reports progress, notices she is more confident walking in home short distance without AD. Objective: Please see flow sheet for ther ex list. Assessment: Participation limited due to c/o foot pain. Plan: Continue with pOC Length of Time (minutes) of Treatment: 30 Minutes APPOINTMENT MANAGER Service Modifier Method I: Divide the number of min of care provided by the APPOINTMENT MANAGER/.NET ARCHITECT by the total min of care provided then multiply by 100. If greater than 11 percent modifier is required. Method II: Divide the total time of care provided to patient by 10 (round to the nearest whole number) and add 1 min. to set the minimum time requirement. If treatment total was 60 min., then 10% of 6 min PT CQ modifier applied: CQ Modifier applied Procedure Charges Therapeutic Exercise 30 minutes: Yes
--- NOTE | 2024-11-17 13:37 | PTNOTE_ITS ---
PT Outpatient Daily Note OP Daily Note Outpatient Physical Therapy Treatment Date: 11/17/24 Visit Reasons: weakness of both lower extremities Subjective: Pt c/o 8/10 R foot pain. Objective: Please see flow sheet for ther ex list. Assessment: Pt demonstrates poor activity tolerance due to pain in R ankle. Progress in clinic slow due to pain response. Plan: Continue with POC. Length of Time (minutes) of Treatment: 30 Minutes PROTECTION CHIEF INDUSTRIAL PLANT Service Modifier Method I: Divide the number of min of care provided by the PROTECTION CHIEF INDUSTRIAL PLANT/ANALYSIS DIRECTOR by the total min of care provided then multiply by 100. If greater than 11 percent modifier is required. Method II: Divide the total time of care provided to patient by 10 (round to the nearest whole number) and add 1 min. to set the minimum time requirement. If treatment total was 60 min., then 10% of 6 min PT CQ modifier applied: CQ Modifier applied Procedure Charges Therapeutic Exercise 30 minutes: Yes
== END 2024-11-29 23:59 | disposition home or self-care (01) ==
LOC: CPTX 13:00
PROVIDERS: PCP Internal Medicine; Referring Provider Internal Medicine; Visit Provider Internal Medicine
DX: R53.1 Weakness (principal); R26.2 Difficulty in walking, not elsewhere classified; R29.898 Other symptoms and signs involving the musculoskeletal system; M51.369 Other intervertebral disc degeneration, lumbar region without mention of lumbar back pain or lower extremity pain
CPT/HCPCS: 97110

== ENCOUNTER → 2024-11-21 | Outpatient (CLI) | payer MEDICARE, BC, SELFPAY | END | disposition home or self-care (01) | PROVIDERS: PCP Internal Medicine; Referring Provider Internal Medicine; Visit Provider Student in an Organized Health Care Education/Training Program | DX: L97.312 Non-pressure chronic ulcer of right ankle with fat layer exposed (principal); I10 Essential (primary) hypertension; E11.621 Type 2 diabetes mellitus with foot ulcer; Z79.4 Long term (current) use of insulin; I73.9 Peripheral vascular disease, unspecified; E03.9 Hypothyroidism, unspecified | CPT/HCPCS: 11042; A9270 ==

== ENCOUNTER → 2024-11-28 | Outpatient (CLI) | payer MEDICARE, BC, SELFPAY | END | disposition home or self-care (01) | LOC: SWHD 09:34 | PROVIDERS: PCP Internal Medicine; Referring Provider Internal Medicine; Visit Provider Student in an Organized Health Care Education/Training Program | DX: I87.311 Chronic venous hypertension (idiopathic) with ulcer of right lower extremity (principal); I10 Essential (primary) hypertension; L97.312 Non-pressure chronic ulcer of right ankle with fat layer exposed; E11.621 Type 2 diabetes mellitus with foot ulcer; Z79.4 Long term (current) use of insulin; I73.9 Peripheral vascular disease, unspecified; E03.9 Hypothyroidism, unspecified | CPT/HCPCS: 97597; A9270 ==

== ENCOUNTER → 2024-12-05 | Outpatient (CLI) | payer MEDICARE, BC, SELFPAY ==
--- NOTE | 2024-12-05 | XR_ITS ---
EXAMINATION: Ankle, right 3 views . Technique: Ankle AP, oblique, lateral 3 views Date and time of exam: December 05, 2024 1257 hours INDICATIONS: Nonhealing right ankle Several months FINDINGS: Prominent osteopenia Old fracture distal tibia which has healed No jace cortical bone destruction IMPRESSION: No jace cortical bone destruction As clinically warranted, MRI ankle without contrast follow-up would best assess for osteomyelitis
== END | disposition home or self-care (01) ==
LOC: CDIM 11:29 → SWHO 11:30 → SWHD 12-12 07:31
PROVIDERS: PCP Internal Medicine; Referring Provider Student in an Organized Health Care Education/Training Program; Visit Provider Student in an Organized Health Care Education/Training Program
DX: E11.621 Type 2 diabetes mellitus with foot ulcer (principal); T24.202A Burn of second degree of unspecified site of left lower limb, except ankle and foot, initial encounter; L97.522 Non-pressure chronic ulcer of other part of left foot with fat layer exposed; Z79.4 Long term (current) use of insulin; Z79.84 Long term (current) use of oral hypoglycemic drugs; I10 Essential (primary) hypertension
CPT/HCPCS: 97597; 73610; A9270

== ENCOUNTER → 2024-12-12 | Outpatient (CLI) | payer MEDICARE, BC, SELFPAY | END | disposition home or self-care (01) | LOC: SWHD 09:47 | PROVIDERS: PCP Internal Medicine; Referring Provider Internal Medicine; Visit Provider Surgery | DX: E11.621 Type 2 diabetes mellitus with foot ulcer (principal); T24.202A Burn of second degree of unspecified site of left lower limb, except ankle and foot, initial encounter; L97.522 Non-pressure chronic ulcer of other part of left foot with fat layer exposed; Z79.4 Long term (current) use of insulin; Z79.84 Long term (current) use of oral hypoglycemic drugs; I10 Essential (primary) hypertension | CPT/HCPCS: 11042; A9270 ==

== ENCOUNTER → 2024-12-19 | Outpatient (CLI) | payer MEDICARE, BC, SELFPAY | END | disposition home or self-care (01) | PROVIDERS: PCP Internal Medicine; Referring Provider Internal Medicine; Visit Provider Student in an Organized Health Care Education/Training Program | DX: E11.621 Type 2 diabetes mellitus with foot ulcer (principal); T24.202A Burn of second degree of unspecified site of left lower limb, except ankle and foot, initial encounter; L97.522 Non-pressure chronic ulcer of other part of left foot with fat layer exposed; Z79.4 Long term (current) use of insulin; Z79.84 Long term (current) use of oral hypoglycemic drugs; I10 Essential (primary) hypertension | CPT/HCPCS: 97597; A9270 ==

== ENCOUNTER → 2024-12-26 | Outpatient (CLI) | payer MEDICARE, BC, SELFPAY | END | disposition home or self-care (01) | LOC: SWHD 09:46 | PROVIDERS: PCP Internal Medicine; Referring Provider Internal Medicine; Visit Provider Student in an Organized Health Care Education/Training Program | DX: E11.621 Type 2 diabetes mellitus with foot ulcer (principal); T24.202A Burn of second degree of unspecified site of left lower limb, except ankle and foot, initial encounter; L97.525 Non-pressure chronic ulcer of other part of left foot with muscle involvement without evidence of necrosis; Z79.4 Long term (current) use of insulin; Z79.84 Long term (current) use of oral hypoglycemic drugs; I10 Essential (primary) hypertension | CPT/HCPCS: 11042; A9270 ==

== ENCOUNTER 2024-12-30 11:26 | Outpatient (RCR) | payer MEDICARE, BC, SELFPAY | END 2024-12-30 23:59 | disposition home or self-care (01) | LOC: SWHD 11:26 | PROVIDERS: PCP Internal Medicine; Referring Provider Internal Medicine; Visit Provider Student in an Organized Health Care Education/Training Program | DX: E11.621 Type 2 diabetes mellitus with foot ulcer (principal); T24.202A Burn of second degree of unspecified site of left lower limb, except ankle and foot, initial encounter; L97.525 Non-pressure chronic ulcer of other part of left foot with muscle involvement without evidence of necrosis; Z79.4 Long term (current) use of insulin; Z79.84 Long term (current) use of oral hypoglycemic drugs; I10 Essential (primary) hypertension | CPT/HCPCS: 82962; G0277 ==

== ENCOUNTER → 2025-01-02 | Outpatient (CLI) | payer MEDICARE, BC, SELFPAY ==
[2025-01-02 13:31] LABS: Alanine Aminotransferase 19 U/L (10-49); Albumin/Globulin Ratio 1.8 (1.2-2.2); Alkaline Phosphatase 30 U/L (46-116); Anion Gap 10 (7-16); Aspartate Amino Transferase 19 U/L (0-34); BUN/Creatinine Ratio 31 Ratio (12-20); Bilirubin,Total 0.4 mg/dL (0.3-1.2); Blood Urea Nitrogen 28 mg/dL (9-23); Calcium 9.4 mg/dL (8.3-10.6); Calcium (Corrected) 9.4 mg/dL (8.5-10.1); Carbon Dioxide 25.5 mMol/L (20.0-31.0); Chloride 98 mMol/L (98-107); Creatinine (Component) 0.9 mg/dL (0.6-1.3); Globulin 2.2 gm/dL (2.3-3.5); Glucose 120 mg/dL (74-106); Osmolality,Calculated 272 (275-295); Sodium 133 mMol/L (136-145); Total Protein 6.2 gm/dL (5.7-8.2); eGFR > 60 See Note
== END | disposition home or self-care (01) ==
LOC: COPL 11:29
PROVIDERS: PCP Nurse Practitioner Family; Referring Provider Nurse Practitioner Family; Visit Provider Nurse Practitioner Family
DX: E11.65 Type 2 diabetes mellitus with hyperglycemia (principal)
CPT/HCPCS: 36415; 80053

== ENCOUNTER → 2025-01-10 | Outpatient (CLI) | payer MEDICARE, BC, SELFPAY | END | disposition home or self-care (01) | PROVIDERS: PCP Internal Medicine; Referring Provider Student in an Organized Health Care Education/Training Program; Visit Provider Student in an Organized Health Care Education/Training Program | DX: E11.621 Type 2 diabetes mellitus with foot ulcer (principal) ==

== ENCOUNTER → 2025-01-12 | Outpatient (CLI) | payer MEDICARE, BC, SELFPAY ==
--- NOTE | 2025-01-12 15:15 | XR_ITS ---
Examination: Screening digital mammography, bilateral Computer aided detection 3-D breast Tomosynthesis, bilateral Date and time of exam: January 12, 2025 1504 hrs. Compared to mammograms dating to December 24, 2017 Indication: Screening Technique: Nonmagnified MLO, CC views of the breasts to been obtained, reconstructed from 3-D Tomosynthesis images. R2 computer aided detection program utilized for evaluation of suspicious masses and/or abnormal calcifications. 3-D Tomosynthesis images obtained. Findings: The breasts are heterogeneously dense, which may obscure small masses Benign calcifications. No interval suspicious masses Impression: BI-RADS category II: Benign Findings. Recommend 1 year follow-up mammogram.
== END | disposition home or self-care (01) ==
PROVIDERS: PCP Internal Medicine; Referring Provider Internal Medicine; Visit Provider Internal Medicine
DX: Z12.31 Encounter for screening mammogram for malignant neoplasm of breast (principal); R92.323 Mammographic fibroglandular density, bilateral breasts; R92.1 Mammographic calcification found on diagnostic imaging of breast
CPT/HCPCS: 77063; 77067

== ENCOUNTER → 2025-01-17 | Outpatient (CLI) | payer MEDICARE, BC, SELFPAY ==
[2025-01-17 14:24] LABS: Glucose Estimated Average 183 mg/dL (80-131)
[2025-01-17 14:30] LABS: Basophils % (Auto) 0 % (0-2.5); Eosinophils % (Auto) 0 % (0-10); Hematocrit 31.5 % (36.0-46.0); Hemoglobin 10.3 g/dL (12.0-16.0); Immature Granulocytes % (Auto) 2 % (0-0); Immature Granulocytes Auto 0.24 Thou/mm3 (0.00-0.00); Lymphocytes % (Auto) 26 % (10-50); Mean Corpuscular HGB Conc 32.7 g/dl (31.0-37.0); Mean Corpuscular Hemoglobin 30.8 pg (25.0-35.0); Mean Corpuscular Volume 94 fL (80-100); Monocytes # (Auto) 0.9 Thou/mm3 (0.0-0.8); Monocytes % (Auto) 8 % (0-12); Neutrophils # (Auto) 7.5 Thou/mm3 (1.8-7.7); Neutrophils % (Auto) 64 % (37-80); Nucleated Red Blood Cell % 0 /100 WBC (0); Platelet Count 298 Thou/mm3 (140-440); RDW Standard Deviation 53.4 fL (36.4-46.3); Red Blood Count 3.34 Miln/mm3 (4.00-5.20); White Blood Count 11.6 Thou/mm3 (3.6-11.0)
[2025-01-17 15:07] LABS: Alanine Aminotransferase 15 U/L (10-49); Albumin, Serum 3.8 gm/dL (3.4-4.8); Alkaline Phosphatase 27 U/L (46-116); Anion Gap 12 (7-16); Aspartate Amino Transferase 16 U/L (0-34); BUN/Creatinine Ratio 34 Ratio (12-20); Bilirubin,Total 0.3 mg/dL (0.3-1.2); Blood Urea Nitrogen 27 mg/dL (9-23); Calcium 9.2 mg/dL (8.3-10.6); Calcium (Corrected) 9.4 mg/dL (8.5-10.1); Carbon Dioxide 26.2 mMol/L (20.0-31.0); Chloride 96 mMol/L (98-107); Creatinine (Component) 0.8 mg/dL (0.6-1.3); Free T4 (Free Thyroxine) 0.65 ng/dL (0.89-1.76); Globulin 1.9 gm/dL (2.3-3.5); Glucose 161 mg/dL (74-106); Osmolality,Calculated 276 (275-295); Potassium 4.9 mMol/L (3.4-5.1); Sodium 134 mMol/L (136-145); Thyroid Stimulating Hormone 2.76 uIU/mL (0.55-4.78); Total Protein 5.7 gm/dL (5.7-8.2); eGFR > 60 See Note
== END | disposition home or self-care (01) ==
LOC: COPL 13:36
PROVIDERS: PCP Internal Medicine; Referring Provider Student in an Organized Health Care Education/Training Program; Visit Provider Student in an Organized Health Care Education/Training Program
DX: E03.9 Hypothyroidism, unspecified (principal)
CPT/HCPCS: 36415; 80053; 83036; 84439; 84443; 85025

== ENCOUNTER 2025-01-27 08:09 | Outpatient (RCR) | payer MEDICARE, BC, SELFPAY ==
--- NOTE | 2025-01-10 | XR_ITS ---
EXAMINATION: Ankle, right 3 views . Technique: Ankle AP, oblique, lateral 3 views Date and time of exam: January 10, 2025 1316 hours INDICATIONS: Right ankle redness swelling and pain beginning 5 months ago. FINDINGS: Old healed fractures distal tibial and fibular shafts Severe osteopenia No acute fracture No jace cortical bone destruction IMPRESSION: No jace cortical bone destruction
== END 2025-01-27 23:59 | disposition home or self-care (01) ==
LOC: SWHD 08:09
PROVIDERS: PCP Internal Medicine; Referring Provider Internal Medicine; Visit Provider Surgery
DX: E11.621 Type 2 diabetes mellitus with foot ulcer (principal); T24.202A Burn of second degree of unspecified site of left lower limb, except ankle and foot, initial encounter; L97.526 Non-pressure chronic ulcer of other part of left foot with bone involvement without evidence of necrosis; Z79.4 Long term (current) use of insulin; Z79.84 Long term (current) use of oral hypoglycemic drugs; I10 Essential (primary) hypertension
CPT/HCPCS: 11042; 17250; 11043; 73610; 82962; A9270; G0277

== ENCOUNTER 2025-01-30 17:20 | Emergency (ER) | payer MEDICARE, BC, SELFPAY ==
[2025-01-30 18:11] VITALS: BP 165/68; PULSE 69; RESP 19; TEMP 36.7; O2SAT 98; BMI 23.9
--- NOTE | 2025-01-30 18:25 | XR_ITS ---
Examination: Sacrum and coccyx 3 views Technique: AP inclined AP lateral sacrum particularly views Exam date and time: January 30, 2025 1555 hrs. Indications: Patient fell today with injury to the sacrococcygeal region, sacrococcygeal pain Findings: Old fracture fifth sacral segment No acute fracture Advanced disc narrowing L5-S1 Impression: Old fracture fifth sacral segment
--- NOTE | 2025-01-30 18:25 | XR_ITS ---
Examination: CT brain head without contrast. 2-D sagittal coronal reconstructions Date and time of exam:January 30, 2025 1836 hrs. Indications: Patient fell today with injury to the head, head pain CTDI: vol (mGy):43.3 DLP: (mGycm):878 Technique: Multiple CT axial sections of the brain have been obtained, 5 mm slice thickness. Contrast has not been administered. 2-D sagittal, coronal reconstructions have been obtained Low dose protocols were performed. One or more of the following dose reduction techniques were used; automated exposure control, adjustment of the mA and/or KV according to patient size, use of iterative reconstruction technique. Findings: No significant ventricular enlargement. Intra-axial or extra-axial hemorrhage density is not seen. No mass effect or midline shift Basal cisterns are not remarkable. Fourth ventricle is midline. Cranial vault intact. Posterior soft tissue right parietal scalp swelling Impression: Negative for acute hemorrhage, mass effect or midline shift
--- NOTE | 2025-01-30 18:25 | PD.EDRME ---
Rapid Medical Screening Exam RME Arrival date/time: 01/30/25 17:20 74-year-old female reports with complaints of a head injury and back injury after falling this morning Chief Complaint: Fall Time Seen by Provider: 01/30/25 17:38 Vital signs: Vital Signs Temperature 98.0 F 01/30/25 18:11 Pulse Rate 69 01/30/25 18:11 Respiratory Rate 19 01/30/25 18:11 Blood Pressure 165/68 H 01/30/25 18:11 Pulse Oximetry (%) 98 01/30/25 18:11 Oxygen Delivery Method Room Air 01/30/25 18:11
--- NOTE | 2025-01-30 20:34 | PD.EDFALL ---
ED Fall Injury RME/HPI General Chief Complaint: Fall Stated Complaint: FELL 1 HR AGO, HIT HEAD, PAIN R) HIP Time Seen by Provider: 01/30/25 17:38 Source: patient Arrival date/time: 01/30/25 17:20 74-year-old female with past medical history of diabetes hypertension with no blood thinner use presents emergency department complaining of head pain and right hip pain after ground-level fall that occurred earlier today. 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 Patient ambulating independently using walker with steady gait GCS 15 answering questions appropriately. Mode of arrival: ambulatory Limitations: no limitations RME / HPI RME / HPI Narrative: 01/30/25 17:20 74-year-old female reports with complaints of a head injury and back injury after falling this morning Related Data Home Medications ?Medication ?Instructions ?Recorded ?Confirmed levothyroxine 75 mcg tablet 75 mcg PO QDAY 04/13/19 08/08/24 alendronate 70 mg tablet 70 mg PO QWEEK 07/11/24 08/08/24 atorvastatin 20 mg tablet 20 mg PO QDAY 07/11/24 08/08/24 metoprolol succinate 25 mg 25 mg PO DAILY 07/11/24 08/08/24 tablet,extended release 24 hr nicardipine 20 mg capsule 20 mg PO BID 07/11/24 08/08/24 sitagliptin phosphate 25 mg tablet 25 mg PO DAILY 07/11/24 08/08/24 (Januvia) insulin degludec 200 unit/mL (3 10 unit subcut QPM 08/05/24 08/08/24 mL) subcutaneous pen (Tresiba FlexTouch U-200 insulin) metformin 500 mg tablet 500 mg PO BID 08/05/24 08/08/24 magnesium oxide 400 mg (241.3 mg 400 mg PO BID 08/08/24 08/08/24 magnesium) tablet pantoprazole 40 mg tablet,delayed 40 mg PO DAILY 08/08/24 08/08/24 release Previous Rx's ?Medication ?Instructions ?Recorded magnesium hydroxide 400 mg/5 mL 20 ml PO TID PRN constipation #355 09/08/24 oral suspension (Milk of Magnesia) mL acetaminophen 500 mg capsule 500 mg PO Q6H PRN pain #30 caps 01/30/25 Allergies Allergy/AdvReac Type Severity Reaction Status Date / Time codeine Allergy Severe Vomiting Verified 01/30/25 17:24 hydrocodone Allergy Severe Vomiting Verified 01/30/25 17:24 morphine Allergy Severe GOES Verified 01/30/25 17:24 CRAZY Penicillins Allergy Severe Swelling Verified 01/30/25 17:24 of Lip/Tongue/Throat tramadol Allergy Severe Vomiting Verified 01/30/25 17:24 Review of Systems Review of Systems Systems Reviewed: All systems reviewed, normal except as documented Constitutional Constitutional: Reports system reviewed and no additional complaints, except as documented, Denies body ache(s), Denies chills, Denies fever(s) and Reports headache(s) Eyes Eyes: Reports system reviewed and no additional complaints, except as documented and Denies change in vision ENT Ears, Nose, Mouth, and Throat: Reports system reviewed and no additional complaints, except as documented, Denies disequilibrium, Denies dizziness, Reports headache(s), Denies sore throat and Denies vertigo Cardiovascular Cardiovascular: Reports system reviewed and no additional complaints, except as documented, Denies chest pain and Denies dyspnea Respiratory Respiratory: Reports system reviewed and no additional complaints, except as documented, Denies chest congestion, Denies cough and Denies dyspnea Gastrointestinal Gastrointestinal: Reports system reviewed and no additional complaints, except as documented, Denies abdominal pain, Denies nausea and Denies vomiting Musculoskeletal Musculoskeletal: Reports system reviewed and no additional complaints, except as documented, Denies abnormal gait and Reports arthralgias Integumentary/Breasts Skin/Breast: Reports system reviewed and no additional complaints, except as documented, Denies erythema, Denies rash and Denies wounds Neurologic Neurologic: Reports system reviewed and no additional complaints, except as documented, Denies abnormal gait, Denies disequilibrium, Denies dizziness, Reports headache(s) and Denies vertigo Past Medical History Past Medical History NEUROLOGIC: Negative Neurological Disorders or Seizures CARDIAC: Positive Cardiac Disorders, Hypercholesterolemia, Valvular Heart Disease and Hypertension; Negative Congestive Heart Failure RESPIRATORY: Negative Chronic Obstructive Pulmonary Disease (COPD) or Asthma GASTROINTESTINAL: Positive Gastrointestinal Disorders, Gastrointestinal Bleed and Obesity; Negative Hepatitis GENITOURINARY: Negative Genitourinary Disorders or Renal Disease REPRODUCTIVE: Positive Previous Pregnancies MUSCULOSKELETAL: Positive Musculoskeletal Disorders, Degenerative Disk Disease and Fractures ENDOCRINE: Positive Endocrine Disorders and Hypothyroidism; Negative Diabetes Mellitus Type 1 or Diabetes Mellitus Type 2 HEMATOLOGIC: Positive Blood Disorders and Anemia; Negative Sickle Cell Disease OTHER HISTORY: Positive Chicken Pox and Measles; Negative Hospitalization, Falls, Blood Transfusions, Anesthesia Reactions, Chemotherapy, Radiation Therapy or Cancer Family History FAMILY HISTORY: Positive Family Cardiac Disorders and Family Cancer Surgical History SURGICAL: Positive Open Reduction Internal Fixation and Hysterectomy; Negative Cardiac Surgery Social History SMOKING STATUS: Never smoker ED Exam General Limitations: Present no limitations General appearance: Present alert and in no apparent distress Head Head exam: Present atraumatic Expanded Head Exam Head exam physical: Present contusion Head image:  1. Small contusion no active bleeding or laceration. Eye Eye exam: Present normal appearance, PERRL and EOMI ENT ENT exam: Present normal exam, normal oropharynx and mucous membranes moist Neck Neck exam: Present normal inspection, full ROM and trachea midline Chest Chest inspection: Present normal inspection and symmetric chest wall rise Respiratory Respiratory exam: Present normal lung sounds bilaterally Cardiovascular Cardiovascular exam: Present regular rate, normal rhythm and normal heart sounds Abdominal Exam Abdominal exam: Present soft and normal bowel sounds Extremities Exam Extremities exam: Present normal inspection and full ROM Back Exam Back exam: Present normal inspection and full ROM Neurological Exam Neurological exam: Present alert, oriented X3 and CN II-XII intact Psychiatric Psychiatric exam: Present normal affect and normal mood Skin Skin exam: Present warm, dry, intact and normal color Course Quality Measures none Orders Category Date Time Status CT head/brain wo con Stat Exams 01/30/25 18:25 Completed XR sacrum coccyx min 2V Stat Exams 01/30/25 18:25 Completed Vital Signs Vital signs: Vital Signs Temperature 98.0 F 01/30/25 18:11 Pulse Rate 69 01/30/25 18:11 Respiratory Rate 19 01/30/25 18:11 Blood Pressure 165/68 H 01/30/25 18:11 Pulse Oximetry (%) 98 01/30/25 18:11 Oxygen Delivery Method Room Air 01/30/25 18:11 98% room air within normal limits Fall MDM Narrative MDM Narrative:: 74-year-old female with past medical history of diabetes hypertension with no blood thinner use presents emergency department complaining of head pain and right hip pain after ground-level fall that occurred earlier today. 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 Patient ambulating independently using walker with steady gait GCS 15 answering questions appropriately. X-ray of hip findings: Old fracture fifth sacral segment No acute fracture Advanced disc narrowing L5-S1 CT of head was unremarkable. Patient is ambulatory and has full active range of motion to bilateral upper and lower extremities. Patient instructed to follow-up with primary care provider return to emergency department for any worsening symptoms or as needed. Patient data External records reviewed:: [facility] previous records Clinical information provided by:: patient Social determinants that could affect healthcare access:: none Patient has the following chronic illnesses:: See chart How is presenting disease/condition affected by chronic disease/condition?: uneffected by Evaluation data The following diagnostics were reviewed and interpreted by me:: radiology exam(s) Lab and/or radiology exams considered but not ordered:: Ordered Interpretation Summary: Interpreted by me Medications / Prescriptions Medications or Prescriptions considered but not ordered:: N/A Medication administrations:: N/A Consultations Consultation(s) initiated? (list below): No Diagnosis Fall Differential Diagnosis: syncope, concussion with loss of consciousness, concussion without loss of consciousness and other (Hip fracture, intracranial bleed) Most likely diagnosis given after review of the tests above:: Contusion of head Admission Indicated Admission indicated?: not indicated Admission Request Was there a request for admission?: No Disposition Plan Disposition Plan: Discharge Discharge Attestation Discharge Attestation: The patient and all family members were given an opportunity to ask questions and understood the discharge instructions. Discharge instructions specifically effects, indications for sooner follow up or return to the emergency department, and the expected course of current diagnosis. Patient condition: Stable Discharge Plan Plan Patient Disposition: HOME (Self Care) Disposition Comment: Stable Prescriptions/Referrals Prescriptions/Med Rec: New acetaminophen 500 mg capsule 500 mg PO Q6H PRN (Reason: pain) Qty: 30 0RF No Action levothyroxine 75 mcg Tablet 75 mcg PO QDAY Januvia 25 mg tablet 25 mg PO DAILY Patient Comments: TAKE 1 TABLET BY MOUTH EVERY DAY nicardipine 20 mg capsule 20 mg PO BID Patient Comments: TAKE 1 CAPSULE BY MOUTH TWICE A DAY (NOT COVERED BY INSURANCE) atorvastatin 20 mg tablet 20 mg PO QDAY Patient Comments: TAKE 1 TABLET BY MOUTH EVERY DAY metoprolol succinate 25 mg tablet extended release 24 hr 25 mg PO DAILY alendronate 70 mg tablet 70 mg PO QWEEK Patient Comments: TAKE 1 TABLET BY MOUTH ONE TIME PER WEEK insulin degludec [Tresiba FlexTouch U-200] 200 unit/mL (3 mL) insulin pen 10 unit SUBCUT QPM Patient Comments: INJECT 4 UNITS BY SUBCUTANEOUS ROUTE PER INSULIN PROTOCOL metformin 500 mg tablet 500 mg PO BID Patient Comments: TAKE 1 TABLET BY MOUTH TWICE A DAY WITH MORNING AND EVENING MEALS magnesium oxide 400 mg (241.3 mg magnesium) tablet 400 mg PO BID Patient Comments: TAKE 1 CAPSULE BY MOUTH TWICE A DAY pantoprazole 40 mg tablet,delayed release (DR/EC) 40 mg PO DAILY Patient Comments: TAKE 1 TABLET BY MOUTH EVERY DAY magnesium hydroxide [Milk of Magnesia] 400 mg/5 mL suspension 20 ml PO TID PRN (Reason: constipation) Qty: 355 0RF Referrals: No Primary/Family,Physician [Primary Care Provider] - In 1 week Problem List Clinical Impression: Contusion of head Patient/Caregiver Discharge Instructions Discharge Activity: activity as tolerated Education Materials: Bruises (Contusions), ED Soft Tissue Contusion, ED Head Injury (Adult) Additional Instructions: Take Tylenol as needed for pain. Continue to use your walker especially when ambulating. Close follow-up with primary care provider in 24 to 40 hours. Return to emergency department for any worsening symptoms or as needed. Print Language: [place] Island[place] Stand Alone Forms: Amanda Award Info., Patient Portal Info Letter PA/BEATA Supervising Physician PA/BEATA Supervising Physician: Dr. Jones
== END 2025-01-30 20:43 | disposition home or self-care (01) ==
PROVIDERS: Emergency Provider Emergency Medicine
DX: S00.93XA Contusion of unspecified part of head, initial encounter (principal); M48.07 Spinal stenosis, lumbosacral region; E11.9 Type 2 diabetes mellitus without complications; I10 Essential (primary) hypertension; W18.30XA Fall on same level, unspecified, initial encounter; Z88.5 Allergy status to narcotic agent
CPT/HCPCS: 70450; 72220; 99284

== ENCOUNTER → 2025-02-20 | Outpatient (CLI) | payer MEDICARE, BC, SELFPAY ==
[2025-02-20 13:32] LABS: Misc Send Out* See Sep Rpt
[2025-02-20 13:49] LABS: Basophils % (Auto) 0 % (0-2.5); Eosinophils % (Auto) 0 % (0-10); Hematocrit 27.1 % (36.0-46.0); Hemoglobin 9.2 g/dL (12.0-16.0); Immature Granulocytes % (Auto) 3 % (0-0); Immature Granulocytes Auto 0.58 Thou/mm3 (0.00-0.00); Lymphocytes # (Auto) 0.9 Thou/mm3 (1.0-4.8); Lymphocytes % (Auto) 5 % (10-50); Mean Corpuscular HGB Conc 33.9 g/dl (31.0-37.0); Mean Corpuscular Hemoglobin 32.1 pg (25.0-35.0); Mean Corpuscular Volume 94 fL (80-100); Monocytes # (Auto) 0.9 Thou/mm3 (0.0-0.8); Monocytes % (Auto) 5 % (0-12); Neutrophils % (Auto) 88 % (37-80); Nucleated Red Blood Cell % 0 /100 WBC (0); Platelet Count 406 Thou/mm3 (140-440); RDW Standard Deviation 48.5 fL (36.4-46.3); Red Blood Count 2.87 Miln/mm3 (4.00-5.20); White Blood Count 20.4 Thou/mm3 (3.6-11.0)
[2025-02-20 14:05] LABS: Sed Rate (ESR) 37 mm/hr (0-30)
[2025-02-20 14:08] LABS: C-Reactive Protein 4.3 mg/dL (0.0-0.9)
[2025-02-20 14:12] LABS: INR 1.1 (0.9-1.3); Partial Thromboplastin Time 25.6 Seconds (22.0-36.0)
[2025-02-20 14:56] LABS: Hepatitis A Antibody IgM Non Reactive (Non React); Hepatitis B Core Antibody IgM Non Reactive (Non React); Hepatitis B Surface Antigen Non Reactive (Non React); Hepatitis C Antibody Non Reactive (Non React)
[2025-02-27 07:03] LABS: ACTH, Plasma* 9 pg/mL (6-50)
[2025-02-28 11:20] LABS: HCV RNA, PCR <15 NOT DETECTED IU/mL
[2025-03-01 06:42] LABS: Complement Component C3* 127 mg/dL (83-193); Complement Component C4c* 33 mg/dL (15-57); Cortisol,total,LC/MS/MS* <1.0 mcg/dL; HCV RNA, PCR Log IU <1.18 NOT DETECTED Log IU/mL
== END | disposition home or self-care (01) ==
LOC: COPL 12:49
PROVIDERS: PCP Internal Medicine; Referring Provider Student in an Organized Health Care Education/Training Program; Visit Provider Student in an Organized Health Care Education/Training Program
DX: D69.0 Allergic purpura (principal)
CPT/HCPCS: 36415; 80074; 82024; 82533; 85025; 85610; 85652; 85730; 86140; 86160; 87522

== ENCOUNTER 2025-02-27 07:59 | Outpatient (RCR) | payer MEDICARE, BC, SELFPAY | END 2025-02-27 23:59 | disposition home or self-care (01) | LOC: SWHD 07:59 | PROVIDERS: PCP Internal Medicine; Referring Provider Internal Medicine; Visit Provider Student in an Organized Health Care Education/Training Program | DX: E11.621 Type 2 diabetes mellitus with foot ulcer (principal); L97.315 Non-pressure chronic ulcer of right ankle with muscle involvement without evidence of necrosis; Z79.4 Long term (current) use of insulin; I73.9 Peripheral vascular disease, unspecified; R60.0 Localized edema; E03.9 Hypothyroidism, unspecified | CPT/HCPCS: 97597; 82962; A9270; G0277 ==

== ENCOUNTER → 2025-03-03 | Outpatient (CLI) | payer MEDICARE, BC, SELFPAY ==
[2025-03-03 14:19] LABS: Basophils % (Auto) 0 % (0-2.5); Eosinophils % (Auto) 0 % (0-10); Immature Granulocytes % (Auto) 2 % (0-0); Immature Granulocytes Auto 0.35 Thou/mm3 (0.00-0.00); Lymphocytes # (Auto) 0.9 Thou/mm3 (1.0-4.8); Lymphocytes % (Auto) 6 % (10-50); Mean Corpuscular HGB Conc 33.3 g/dl (31.0-37.0); Mean Corpuscular Hemoglobin 31.7 pg (25.0-35.0); Mean Corpuscular Volume 95 fL (80-100); Monocytes # (Auto) 0.7 Thou/mm3 (0.0-0.8); Monocytes % (Auto) 4 % (0-12); Neutrophils # (Auto) 13.2 Thou/mm3 (1.8-7.7); Neutrophils % (Auto) 87 % (37-80); Nucleated Red Blood Cell % 0 /100 WBC (0); Platelet Count 382 Thou/mm3 (140-440); RDW Standard Deviation 48.8 fL (36.4-46.3); Red Blood Count 2.84 Miln/mm3 (4.00-5.20); White Blood Count 15.1 Thou/mm3 (3.6-11.0)
[2025-03-03 14:34] LABS: C-Reactive Protein 4.8 mg/dL (0.0-0.9)
[2025-03-03 15:37] LABS: Sed Rate (ESR) 16 mm/hr (0-30)
== END | disposition home or self-care (01) ==
LOC: COPL 13:05
PROVIDERS: PCP Internal Medicine; Referring Provider Student in an Organized Health Care Education/Training Program; Visit Provider Student in an Organized Health Care Education/Training Program
DX: E11.621 Type 2 diabetes mellitus with foot ulcer (principal)
CPT/HCPCS: 36415; 85025; 85652; 86140

== ENCOUNTER 2025-03-06 10:08 | Outpatient (RCR) | payer MEDICARE, BC, SELFPAY | END 2025-03-29 23:59 | disposition home or self-care (01) | LOC: SWHD 10:08 | PROVIDERS: PCP Internal Medicine; Referring Provider Internal Medicine; Visit Provider Surgery | DX: E11.621 Type 2 diabetes mellitus with foot ulcer (principal); L97.316 Non-pressure chronic ulcer of right ankle with bone involvement without evidence of necrosis; Z79.4 Long term (current) use of insulin; I73.9 Peripheral vascular disease, unspecified; R60.0 Localized edema; E03.9 Hypothyroidism, unspecified | CPT/HCPCS: 11042; 82962; A9270; G0277 ==

== ENCOUNTER → 2025-03-08 | Outpatient (CLI) | payer MEDICARE, BC, SELFPAY ==
[2025-03-08 08:49] LABS: Glucose Estimated Average 192 mg/dL (80-131); Hemoglobin A1C 8.3 % Hgb (4.8-6.0)
[2025-03-08 09:06] LABS: Ferritin 332 ng/mL (7.3-270.7); Iron 31 mcg/dL (50-170); Total Iron Binding Capacity 215 mcg/dL (250-425)
[2025-03-08 09:08] LABS: Folate > 24.00 ng/mL (>5.38); Vitamin B12 1195 pg/mL (211-911); Vitamin D 25 Hydroxy Total 44.1 ng/mL (7.3-40.2)
[2025-03-08 09:14] LABS: Alanine Aminotransferase 15 U/L (10-49); Albumin, Serum 3.5 gm/dL (3.4-4.8); Albumin/Globulin Ratio 1.7 (1.2-2.2); Alkaline Phosphatase 60 U/L (46-116); Anion Gap 10 (7-16); Aspartate Amino Transferase 15 U/L (0-34); BUN/Creatinine Ratio 59 Ratio (12-20); Bilirubin,Total 0.6 mg/dL (0.3-1.2); Blood Urea Nitrogen 47 mg/dL (9-23); Calcium 8.6 mg/dL (8.3-10.6); Carbon Dioxide 24.1 mMol/L (20.0-31.0); Cardiac Risk Estimate 3.3 RATIO (3.7-5.6); Chloride 99 mMol/L (98-107); Cholesterol 111 mg/dL (132-200); Creatinine (Component) 0.8 mg/dL (0.6-1.3); Globulin 2.1 gm/dL (2.3-3.5); Glucose 166 mg/dL (74-106); HDL Cholesterol 34 mg/dL (40-60); LDL Cholesterol,Calculated 41 mg/dL (0-130); Osmolality,Calculated 282 (275-295); Potassium 5.4 mMol/L (3.4-5.1); Sodium 133 mMol/L (136-145); Thyroid Stimulating Hormone 0.93 uIU/mL (0.55-4.78); Total Protein 5.6 gm/dL (5.7-8.2); Triglycerides 180 mg/dL (30-150); eGFR > 60 See Note
== END | disposition home or self-care (01) ==
LOC: COPL 07:49
PROVIDERS: PCP Internal Medicine; Referring Provider Internal Medicine; Visit Provider Internal Medicine
DX: E11.65 Type 2 diabetes mellitus with hyperglycemia (principal); D64.9 Anemia, unspecified; I10 Essential (primary) hypertension; R23.3 Spontaneous ecchymoses; K13.79 Other lesions of oral mucosa; R53.83 Other fatigue; E53.8 Deficiency of other specified B group vitamins; M62.81 Muscle weakness (generalized); R68.89 Other general symptoms and signs; E78.5 Hyperlipidemia, unspecified; M81.0 Age-related osteoporosis without current pathological fracture; Z79.899 Other long term (current) drug therapy
CPT/HCPCS: 36415; 80053; 80061; 82306; 82607; 82728; 82746; 83036; 83540; 83550; 84443

== ENCOUNTER → 2025-03-10 | Outpatient (CLI) | payer MEDICARE, BC, SELFPAY ==
[2025-03-10 08:29] LABS: Misc Send Out* See Sep Rpt
[2025-03-15 15:34] LABS: Cortisol, 24-Hr Volume 1300 mL
[2025-03-16 07:26] LABS: Creatinine, 24-Hour Urine 0.25 g/24 h (0.50-2.15)
== END | disposition home or self-care (01) ==
LOC: COPL 08:13
PROVIDERS: PCP Internal Medicine; Referring Provider Internal Medicine; Visit Provider Internal Medicine
DX: D64.9 Anemia, unspecified (principal); E11.65 Type 2 diabetes mellitus with hyperglycemia; E53.8 Deficiency of other specified B group vitamins; E78.5 Hyperlipidemia, unspecified; I10 Essential (primary) hypertension; K13.79 Other lesions of oral mucosa; M62.81 Muscle weakness (generalized); M81.0 Age-related osteoporosis without current pathological fracture; R23.3 Spontaneous ecchymoses; R53.83 Other fatigue; R68.89 Other general symptoms and signs; Z79.899 Other long term (current) drug therapy
CPT/HCPCS: 82530

== ENCOUNTER → 2025-03-13 | Outpatient (CLI) | payer MEDICARE, BC, SELFPAY ==
[2025-03-13 12:17] LABS: Misc Send Out* See Sep Rpt
[2025-03-16 19:49] LABS: Cortisol, 24-Hr Volume 600 mL
[2025-03-17 06:59] LABS: Creatinine, 24-Hour Urine 0.26 g/24 h (0.50-2.15)
== END | disposition home or self-care (01) ==
PROVIDERS: PCP Internal Medicine; Referring Provider Internal Medicine; Visit Provider Internal Medicine
DX: D64.9 Anemia, unspecified (principal); E11.65 Type 2 diabetes mellitus with hyperglycemia; E53.8 Deficiency of other specified B group vitamins; E78.5 Hyperlipidemia, unspecified; I10 Essential (primary) hypertension; K13.79 Other lesions of oral mucosa; M62.81 Muscle weakness (generalized); M81.0 Age-related osteoporosis without current pathological fracture; R23.3 Spontaneous ecchymoses; R53.83 Other fatigue; R68.89 Other general symptoms and signs; Z79.899 Other long term (current) drug therapy
CPT/HCPCS: 82530

== ENCOUNTER → 2025-03-13 | Outpatient (CLI) | payer MEDICARE, BC, SELFPAY | END | disposition home or self-care (01) | PROVIDERS: PCP Internal Medicine; Referring Provider Internal Medicine; Visit Provider Student in an Organized Health Care Education/Training Program | DX: E11.621 Type 2 diabetes mellitus with foot ulcer (principal); L97.312 Non-pressure chronic ulcer of right ankle with fat layer exposed; L89.312 Pressure ulcer of right buttock, stage 2; Z79.4 Long term (current) use of insulin; I73.9 Peripheral vascular disease, unspecified; R60.0 Localized edema; E03.9 Hypothyroidism, unspecified | CPT/HCPCS: 11042; 15271; Q4133; A9270 ==

== ENCOUNTER 2025-03-16 19:09 | Inpatient (IN) | payer MEDICARE, BC, SELFPAY ==
[2025-03-16 19:13] VITALS: BMI 21.5
--- NOTE | 2025-03-16 19:19 | EKG_ITS ---
[facility] Test Date: 2025-03-16 Pat Name: DANYEL FRAGOSO Department: Room: - Gender: Female Evaluation Analyst: : 1950 Requested By: Elijah Burgos Order Number: [id number] Reading MD: Elijah Burgos Measurements Intervals [place] Rate: 74 P: 30 CA: 115 QRS: 22 QRSD: 75 T: 86 QT: 350 QTc: 389 Interpretive Statements SINUS RHYTHM WITH SHORT CA INTERVAL MODERATE ST DEPRESSION [0.05+ mV ST DEPRESSION] Compared to ECG 09/08/2024 08:20:53 Short CA interval now present ST (T wave) deviation now present T-wave abnormality no longer present /store/S0/[id number]/ecg/[id number].pdf
[2025-03-16 20:10] VITALS: BP 77/56; BP 89/46; PULSE 89; RESP 18; TEMP 36.4; O2SAT 100
[2025-03-16 20:27] VITALS: BP 182/77; PULSE 66; RESP 18; TEMP 36.7; O2SAT 100
[2025-03-16 20:28] VITALS: BP 133/60; BP 155/82; BP 182/77; PULSE 62; PULSE 73; PULSE 97
--- NOTE | 2025-03-16 20:29 | XR_ITS ---
Examination: AP chest single view Technique one AP portable upright chest single view Exam date and time: March 16, 2025 2112 hrs. Indications: Shortness of breath today. Findings: Minimal prominence of ventricle No pneumonia or pulmonary edema Moderate osteopenia Impression: No pneumonia or pulmonary edema
--- NOTE | 2025-03-16 20:30 | XR_ITS ---
Examination: CT brain head without contrast. 2-D sagittal coronal reconstructions Date and time of exam:March 16, 2025 2050 hrs. Indications: Generalized weakness and head pain one week CTDI: vol (mGy):45.5 DLP: (mGycm):941 Technique: Multiple CT axial sections of the brain have been obtained, 5 mm slice thickness. Contrast has not been administered. 2-D sagittal, coronal reconstructions have been obtained Low dose protocols were performed. One or more of the following dose reduction techniques were used; automated exposure control, adjustment of the mA and/or KV according to patient size, use of iterative reconstruction technique. Findings: Continual patient motion significantly degrades scan image quality Ventricles are not enlarged No gross hemorrhage or mass effect Impression: Continual patient motion degrades scan image quality No gross hemorrhage mass effect or midline shift
--- NOTE | 2025-03-16 20:30 | PC.NURSE ---
PT CAME TO ER FROM FOR COMPLAINTS OF WEAKNESS AND DIZZINESS X1 WEEK. PT ALSO REPORTS CONSTIPATION PAST 4 DAYS WITH ABDOMINAL DISCOMFORT. PT STATES HAS NOT HAD AN APPETITE ALL DAY TODAY. PT HAS DRESSING TO RIGHT FOOT, STATES HAS AN ULCER WHICH GETS CHECKED EVERY THURSDAY AT [facility]. PT DAUGHTER AT BEDSIDE.
--- NOTE | 2025-03-16 20:30 | XR_ITS ---
Examination: CT chest, without intravenous contrast. CT abdomen, without intravenous contrast. CT pelvis, without intravenous contrast. 2-D sagittal and coronal reconstructions. 3-D reconstructions. Date and time of exam:March 16, 2025 2052 hrs. Indications: Onset chest pain abdominal pain this week Comparison: March 07, 2024 CTDI vol (mgy) 8.91 DLP (MGycm)597 Technique: Multiple CT images, 3.0 mm slice thickness, obtained chest, abdomen, pelvis, with the high-resolution 64 slice scanner.. Sagittal and coronal 2-D reconstructions are obtained. 3-D reconstructions Low dose protocols were performed. One or more of the following dose reduction techniques were used; automated exposure control, adjustment of the mA and/or KV according to patient size, use of iterative reconstruction technique. Findings: No thoracic aortic aneurysm dilatation Pulmonary artery segments are not enlarged No paratracheal tracheobronchial or bronchopulmonary adenopathy 8 bilateral noncalcified pulmonary nodules again depicted, stable compared with March 07, 2024 No interval pneumonia or pulmonary edema No visualized liver or splenic lesion No gallstones No pancreatic or adrenal mass No renal or ureteral calculi, no hydronephrosis Aorta normal size Normal appendix No bowel obstruction or diverticulitis Absent uterus No pelvic mass Urinary bladder intact Advanced degenerative disc disease lower 4 lumbar levels Healed right hip fracture Impression: Stable pulmonary nodules compared with March 07, 2024 Interval pneumonia or pulmonary edema or pleural disease Negative for cholelithiasis Negative for pancreatitis No renal or ureteral calculi, no hydronephrosis Normal appendix No bowel obstruction or diverticulitis
--- NOTE | 2025-03-16 20:45 | PC.NURSE ---
PT TAKEN TO CT
[2025-03-16 21:00] VITALS: PULSE 74
[2025-03-16 21:19] LABS: Lactate (Lactic Acid) 3.5 mMol/L (0.4-2.0)
[2025-03-16] MEDS: SODIUM CHLORIDE 0.9% 1000 ML 1,000 ML 999 ML IV (21:20)
[2025-03-16] MEDS: INSULIN HUM REGULAR 1 UNIT/0.01 ML (PER UNIT) 5 UNIT IV (21:21)
--- NOTE | 2025-03-16 21:25 | PC.NURSE ---
DR. SALINAS AWARE PT REFUSED MORPHINE AND ZOFRAN.
--- NOTE | 2025-03-16 21:25 | PD.EDWEAK ---
ED Weakness RME/HPI General Chief complaint: Weakness Stated complaint: WEAKNESS FOR A WEEK, CONSTIPATIONS, NO APPETITE Time Seen by Provider: 03/16/25 20:57 Arrival date/time: 03/16/25 19:09 RME / HPI RME / HPI Narrative: This section includes all my notes and documentations, including HPI, PE, and ED course. Gilles Lucas MD HPI: 74 y/o female with Hx of Hypercholesterolemia, Valvular Heart Disease, Hypertension, Gastrointestinal Bleed and Obesity, Degenerative Disk Disease, Diabetes Mellitus, Hypothyroidism here c/o weakness, decreased appetite, vomiting, constipation, abdominal pain, and headache x 1 week. Denies any fever or diarrhea. No other complaints reported. ROS: All negative except as documented in HPI. Physical Exam: General: Alert and oriented. Appearance of malaise noted. Hypotension noted. Eyes: Conjunctivae and lids clear. PERRL. EOMI. ENT: No nasal congestion. Neck: Supple. Heart: RRR. Lungs: No respiratory distress. Good air movement. No rhonchi, wheezing, rales. Abdomen: Diffused abdominal tenderness, difficult to localize pain. Normal bowel sounds. No distension. No rebound or guarding. Back: No CVA tenderness. Skin: Warm and dry. Neuro: Alert and oriented X 3. Right foot: Covered in bandage, wound-vac tube is attached. I reviewed all diagnostic test results. My interpretation of the EKG is sinus rhythm with no acute ST?T changes. My interpretation of the chest x-ray is NAD. My review of the head CT report is NAD. My review of the chest/abdomen/pelvis CT report is NAD. Blood tests and urine tests remarkable for WBC 22.4, K 6 (repeat 5.6), lactic acid 3.5. At this point, diagnoses include pending sepsis, right ankle soft tissue infection, diabetic foot ulcer, hyperkalemia. Treatment here included Tylenol, Sodium Chloride, Ceftriaxone Sodium, Insulin Human Regular, Morphine Sulfate, and Zofran. She remained stable. I discussed the case with our hospitalist. About the presentation and exam and diagnostics and treatments here. And need further care in the hospital. Will accept the patient. Gilles Lucas MD Related Data Home Medications ?Medication ?Instructions ?Recorded ?Confirmed levothyroxine 75 mcg tablet 75 mcg PO QDAY 04/13/19 03/17/25 alendronate 70 mg tablet 70 mg PO QWEEK 07/11/24 03/17/25 atorvastatin 20 mg tablet 20 mg PO QDAY 07/11/24 03/17/25 metoprolol succinate 25 mg 25 mg PO DAILY 07/11/24 03/17/25 tablet,extended release 24 hr nicardipine 20 mg capsule 20 mg PO BID 07/11/24 03/17/25 sitagliptin phosphate 25 mg tablet 25 mg PO DAILY 07/11/24 08/08/24 (Januvia) insulin degludec 200 unit/mL (3 10 unit subcut QPM 08/05/24 08/08/24 mL) subcutaneous pen (Tresiba FlexTouch U-200 insulin) metformin 500 mg tablet 500 mg PO BID 08/05/24 03/17/25 magnesium oxide 400 mg (241.3 mg 400 mg PO BID 08/08/24 08/08/24 magnesium) tablet pantoprazole 40 mg tablet,delayed 40 mg PO DAILY 08/08/24 03/17/25 release bumetanide 0.5 mg tablet 0.5 mg PO QDAY 03/17/25 03/17/25 doxycycline hyclate 100 mg tablet 100 mg PO Q12H 03/17/25 03/17/25 escitalopram oxalate 10 mg tablet 10 mg PO QDAY 03/17/25 03/17/25 olmesartan 20 mg tablet 20 mg PO QDAY 03/17/25 03/17/25 spironolactone 25 mg tablet 25 mg PO QDAY 03/17/25 03/17/25 Previous Rx's ?Medication ?Instructions ?Recorded magnesium hydroxide 400 mg/5 mL 20 ml PO TID PRN constipation #355 09/08/24 oral suspension (Milk of Magnesia) mL acetaminophen 500 mg capsule 500 mg PO Q6H PRN pain #30 caps 01/30/25 Allergies Allergy/AdvReac Type Severity Reaction Status Date / Time codeine Allergy Severe Vomiting Verified 03/16/25 19:12 hydrocodone Allergy Severe Vomiting Verified 03/16/25 19:12 morphine Allergy Severe GOES Verified 03/16/25 19:12 CRAZY Penicillins Allergy Severe Swelling Verified 03/16/25 19:12 of Lip/Tongue/Throat tramadol Allergy Severe Vomiting Verified 03/16/25 19:12 acetaminophen (From Vicodin) Allergy Vomiting Verified 03/16/25 19:12 Review of Systems Review of Systems Systems Reviewed: All systems reviewed, normal except as documented Narrative Review of Systems: Refer to HPI above Past Medical History Past Medical History CARDIAC: Positive Cardiac Disorders, Hypercholesterolemia, Valvular Heart Disease and Hypertension GASTROINTESTINAL: Positive Gastrointestinal Disorders, Gastrointestinal Bleed and Obesity REPRODUCTIVE: Positive Previous Pregnancies MUSCULOSKELETAL: Positive Musculoskeletal Disorders, Degenerative Disk Disease and Fractures ENDOCRINE: Positive Endocrine Disorders, Diabetes Mellitus Type 1 and Hypothyroidism HEMATOLOGIC: Positive Blood Disorders OTHER HISTORY: Positive Chicken Pox and Measles Family History FAMILY HISTORY: Positive Family Cardiac Disorders and Family Cancer Surgical History SURGICAL: Positive Open Reduction Internal Fixation and Hysterectomy ED Exam Narrative Physical exam: Refer to HPI above Course Quality Measures none Orders Category Date Time Status Bedside COVID-19 Antigen Test NOW Care 03/16/25 20:28 Active Bedside Influenza A&B Antigen Test NOW Care 03/16/25 20:28 Completed Blood glucose [Bedside Blood Glucose] ACHS Care 03/16/25 19:19 Active EKG (ED ONLY) *Do not use* NOW Care 03/16/25 19:19 Completed Glucose [Bedside Blood Glucose] NOW Care 03/16/25 23:00 Active Orthostatic Vitals NOW Care 03/16/25 20:28 Active Saline [Insert IV] NOW Care 03/16/25 20:28 Active Straight [In and Out Catheter] X1 Care 03/16/25 20:[address] chest abdomen pelvis wo Stat Exams 03/16/25 20:[address] head/brain wo con Stat Exams 03/16/25 20:30 Completed EKG (ED Only) Stat Exams 03/16/25 19:19 Draft XR chest 1V portable Stat Exams 03/16/25 20:29 Completed ABG [Arterial Blood Gas] Stat Lab 03/17/25 00:53 Completed Amylase Stat Lab 03/16/25 21:10 Completed BNP [B-Type Natriuretic Peptide] Stat Lab 03/16/25 21:10 Completed Beta Hydroxybutyrate Stat Lab 03/16/25 21:10 Completed Bilirubin,Direct Stat Lab 03/16/25 21:10 Completed Blood Culture (Lab) Stat Lab 03/16/25 21:05 Results CBC Stat Lab 03/16/25 21:10 Completed CMP [Comprehensive Metabolic Panel] Stat Lab 03/16/25 21:10 Completed CRP [C-Reactive Protein] Stat Lab 03/16/25 21:10 Completed ESR [Sed Rate (ESR)] Stat Lab 03/16/25 21:10 Completed Free T4 (Free Thyroxine) Stat Lab 03/16/25 21:10 Completed Hemoglobin A1C [Glycohemoglobin w (eAG)] Stat Lab 03/16/25 21:10 Completed Lactate (Lactic Acid) Stat Lab 03/16/25 21:10 Completed Lipase Stat Lab 03/16/25 21:10 Completed Magnesium Stat Lab 03/16/25 21:10 Completed PT [Prothrombin Time with INR] Stat Lab 03/16/25 21:10 Completed PTT [Partial Thromboplastin Time] Stat Lab 03/16/25 21:10 Completed Potassium Stat Lab 03/16/25 22:24 Completed Procalcitonin Stat Lab 03/16/25 21:10 Completed TSH [Thyroid Stimulating Hormone] Stat Lab 03/16/25 21:10 Completed Troponin I Stat Lab 03/16/25 21:10 Completed UA, C/S IF [Urinalysis, C/S if Indicated] Stat Lab 03/16/25 22:00 Completed Acetaminophen Tab [Tylenol Tab] Med 03/16/25 21:25 Discontinued 650 mg PO X1 ONE Insulin Regular Med 03/16/25 20:30 Discontinued 5 unit IV X1 ONE Morphine Inj Med 03/16/25 20:29 Discontinued 4 mg IVP X1 ONE Ondansetron Inj [Zofran Inj] Med 03/16/25 20:29 Discontinued 4 mg IV X1 ONE Sodium Chloride 0.9% 1000 ml [Ns] 1,000 ml Med 03/16/25 20:29 Discontinued IV 999 mls/hr cefTRIAXone [Rocephin] 1,000 mg Med 03/16/25 21:28 Discontinued SODIUM CHLORIDE 0.9% (Popper) [Ns 0.9% (P)] 50 ml IV X1 Vital Signs Vital signs: Vital Signs Temperature 97.6 F 03/16/25 20:10 Pulse Rate 89 03/16/25 20:10 Respiratory Rate 18 03/16/25 20:10 Blood Pressure 77/56 L 03/16/25 20:10 Pulse Oximetry (%) 100 03/16/25 20:10 Oxygen Delivery Method Room Air 03/16/25 20:10 Weakness MDM Narrative MDM Narrative:: Scribe Attestation: I, Carline Barry, am scribing for and in the presence of Dr. Lucas. Provider Notation: Although this document has been carefully reviewed, there may still be some phonetic and other typographical errors. These errors are purely grammatical due to imperfections in the software program and should not be construed in any way to compromise the substance of the patient's medical care during this visit. Patient data External records reviewed:: [facility] previous records (Reviewed prior ED records from 01/30/25. Patient was seen for Contusion of head.) Clinical information provided by:: patient Social determinants that could affect healthcare access:: none Patient has the following chronic illnesses:: Hypercholesterolemia, Valvular Heart Disease, Hypertension, Gastrointestinal Bleed and Obesity, Degenerative Disk Disease and Fractures, Diabetes Mellitus Type 1, Hypothyroidism How is presenting disease/condition affected by chronic disease/condition?: exacerbated by Evaluation data The following diagnostics were reviewed and interpreted by me:: lab results, radiology exam(s) and EKG tracing(s) Lab and/or radiology exams considered but not ordered:: None Interpretation Summary: Pending sepsis, right ankle soft tissue infection, hypokalemia Medications / Prescriptions Medications or Prescriptions considered but not ordered:: None Medication administrations:: Medication Administration History Acetaminophen (Acetaminophen 325 Mg Tablet) 650 mg PO Q6H PRN PRN Reason: Fever >100.3 or pain 1-3 Stop: 04/16/25 00:04 Last Admin: 03/17/25 04:09 Dose: 650 mg Documented By: DANIELLE Amlodipine Besylate (Amlodipine Besylate 5 Mg Tablet) 5 mg PO QDAY [facility] Stop: 04/16/25 08:59 Last Admin: 03/17/25 08:29 Dose: 5 mg Documented By: MR Atorvastatin Calcium (Atorvastatin Calcium 20 Mg Tablet) 20 mg PO [facility] Stop: 04/16/25 20:59 Last Admin: 03/17/25 20:15 Dose: 20 mg Documented By: Dextrose (Dextrose 50%-Water Inj 50 Ml Syringe) 25 ml IV Q15MIN PRN PRN Reason: BG 50-70 responsive npo pt Stop: 04/16/25 00:10 Dextrose (Dextrose 50%-Water Inj 50 Ml Syringe) 50 ml IV Q15MIN PRN PRN Reason: BG <50 OR BG <70 & pt unresponsive Stop: 04/16/25 00:10 Escitalopram Oxalate (Escitalopram Oxalate 10 Mg Tablet) 10 mg PO QDAY [facility] Stop: 04/16/25 08:59 Last Admin: 03/17/25 08:29 Dose: 10 mg Documented By: Glucagon (Glucagon Inj 1 Mg Vial) 1 mg IM Q15MIN PRN PRN Reason: BG <70, and no IV access Heparin Sodium (Porcine) (Heparin Sod Inj 5000 Unit/Ml Vial) 5,000 unit SC Q8HR JESSICA Stop: 03/31/25 05:59 Last Admin: 03/17/25 22:29 Dose: 5,000 unit Documented By: Co-signed By: SHAE Admin: 03/17/25 14:15 Dose: 5,000 unit Documented By: Co-signed By: EITAN Admin: 03/17/25 05:04 Dose: 5,000 unit Documented By: CG Co-signed By: BRIAN Hydralazine HCl (Hydralazine Inj 20 Mg/Ml Vial) 10 mg IV Q2HR PRN PRN Reason: SBP>180 Stop: 04/16/25 01:59 Hydromorphone HCl (Hydromorphone Inj 2 Mg/Ml Vial) 0.25 mg IVP Q4HR PRN PRN Reason: PAIN SCALE 4-10(Mod-Sev Stop: 03/22/25 10:59 Last Admin: 03/17/25 22:46 Dose: 0.25 mg Documented By: Admin: 03/17/25 18:41 Dose: 0.25 mg Documented By: Admin: 03/17/25 11:13 Dose: 0.25 mg Documented By: Cefepime HCl 2 gm/ Sodium (Chloride) 50 mls @ 100 mls/hr IV Q8HR [facility] Stop: 03/24/25 06:14 Last Admin: 03/17/25 22:29 Dose: 100 mls/hr Documented By: Infusion: 03/17/25 14:44 Dose: Infused Documented By: Admin: 03/17/25 14:14 Dose: 100 mls/hr Documented By: Infusion: 03/17/25 06:41 Dose: Infused Documented By: Admin: 03/17/25 06:11 Dose: 100 mls/hr Documented By: DANIELLE Insulin Glargine (Insulin Glargine (Lantus) 5 Unit/0.05 Ml (Per 5 Units)) 12 unit SC QDAY JESSICA Stop: 04/16/25 08:59 Last Admin: 03/17/25 08:59 Dose: 12 unit Documented By: Co-signed By: Insulin Human Lispro (Insulin Lispro (Admelog) 1 Unit/0.01 Ml Unit) 0 unit SC AC JESSICA; Protocol Stop: 04/16/25 07:29 Last Admin: 03/17/25 17:09 Dose: 2 unit Documented By: Co-signed By: EITAN Admin: 03/17/25 11:37 Dose: Not Given Documented By: Non-Admin Reason: Contraindicated Admin: 03/17/25 07:36 Dose: Not Given Documented By: Non-Admin Reason: Contraindicated Ketorolac Tromethamine (Ketorolac Inj 30 Mg/Ml Vial) 15 mg IVP Q6HR PRN PRN Reason: PAIN SCALE 4-10(Mod-Sev Stop: 03/22/25 00:08 Last Admin: 03/18/25 01:40 Dose: 15 mg Documented By: Admin: 03/17/25 08:28 Dose: 15 mg Documented By: Levothyroxine Sodium (Levothyroxine Sodium 25 Mcg Tablet) 75 mcg PO ACBR JESSICA Stop: 04/16/25 05:59 Last Admin: 03/17/25 05:04 Dose: 75 mcg Documented By: DANIELLE Nystatin (Nystatin Susp 5 Ml Udc) 5 ml PO QID JESSICA Stop: 03/18/25 06:59 Last Admin: 03/17/25 20:18 Dose: 5 ml Documented By: Admin: 03/17/25 17:09 Dose: 5 ml Documented By: Admin: 03/17/25 12:12 Dose: 5 ml Documented By: Admin: 03/17/25 05:04 Dose: 5 ml Documented By: DANIELLE Ondansetron HCl (Ondansetron Inj 2 Mg/Ml Inj 2 Ml) 4 mg IV Q6HR PRN; Protocol PRN Reason: NAUSEA OR VOMITING Stop: 04/16/25 00:19 Sennosides (Senna Tablet) 1 tab PO QDAY PRN; Protocol PRN Reason: constipation Stop: 04/16/25 00:04 Discontinued Medications Acetaminophen (Acetaminophen 325 Mg Tablet) 650 mg PO X1 ONE Stop: 03/16/25 21:26 Last Admin: 03/16/25 22:26 Dose: Not Given Documented By: CHAITANYA Non-Admin Reason: Patient Refused Sodium Chloride (Ns) 1,000 mls @ 999 mls/hr IV .Q1H1M ONE Stop: 03/16/25 21:29 Last Infusion: 03/16/25 22:27 Dose: Infused Documented By: Admin: 03/16/25 21:20 Dose: 999 mls/hr Documented By: CHAITANYA Ceftriaxone Sodium 1,000 mg/ (Sodium Chloride) 50 mls @ 100 mls/hr IV X1 ONE Stop: 03/16/25 21:57 Last Infusion: 03/16/25 22:54 Dose: Infused Documented By: Admin: 03/16/25 22:24 Dose: 100 mls/hr Documented By: CHATIANYA Cefepime HCl 2 gm/ Sodium (Chloride) 50 mls @ 100 mls/hr IV X1 ONE Stop: 03/17/25 01:14 Last Infusion: 03/17/25 01:50 Dose: Infused Documented By: Admin: 03/17/25 01:16 Dose: 100 mls/hr Documented By: CHAITANYA Cefepime HCl 2 gm/ Sodium (Chloride) 50 mls @ 100 mls/hr IV X1 ONE Stop: 03/17/25 01:43 Last Admin: 03/17/25 01:16 Dose: Not Given Documented By: CHAITANYA Non-Admin Reason: Duplicate Medication on eMAR Insulin Human Regular (Insulin Hum Regular 1 Unit/0.01 Ml (Per Unit)) 5 unit IV X1 ONE Stop: 03/16/25 20:31 Last Admin: 03/16/25 21:21 Dose: 5 unit Documented By: CHAITANYA Co-signed By: Morphine Sulfate (Morphine Sulf Inj 10 Mg/Ml Vial) 4 mg IVP X1 ONE Stop: 03/16/25 20:30 Last Admin: 03/16/25 21:07 Dose: Not Given Documented By: CHAITANYA Non-Admin Reason: Patient Refused Ondansetron HCl (Ondansetron Inj 2 Mg/Ml Inj 2 Ml) 4 mg IV X1 ONE; Protocol Stop: 03/16/25 20:30 Last Admin: 03/16/25 21:22 Dose: Not Given Documented By: CHAITANYA Non-Admin Reason: Patient Refused Pharmacy Consult (Vancomycin Pharmacy To Dose 1 Each Each) 1 each IV QDAY JESSICA Stop: 04/16/25 08:59 Vancomycin/Sodium Chloride (Vancomycin In Ns 1 Gm/200 Ml Bag) 1 gm IV X1 ONE Stop: 03/17/25 00:31 Last Admin: 03/17/25 01:53 Dose: 1 gm Documented By: CHAITANYA From vt, treatment in the ED included acetaminophen, Sodium Chloride, Ceftriaxone Sodium, Insulin Human Regular, Morphine Sulfate, Ondansetron HCl. Consultations Consultation(s) initiated? (list below): No Diagnosis Weakness Differential Diagnosis: acute myocardial infarction, anemia, hypoglycemia, hypothyroidism, rhabdomyolysis, sepsis, dehydration and other (CVA, brain tumor, UTI, pneumonia, osteomyelitis) Most likely diagnosis given after review of the tests above:: Pending sepsis, right ankle soft tissue infection, hypokalemia Admission Indicated Admission indicated?: indicated Explain why admission is indicated or not indicated:: Pending sepsis, right ankle soft tissue infection, hypokalemia Admission Request Was there a request for admission?: Yes Admission Attestation Admission request attestation: Discussed case with Hospitalist service regarding admission. Discussed patients ED course, exam findings, labs, and radiology results. The Hospitalist [agrees] to accept the patient for admission. Disposition Plan Disposition Plan: Admit Discharge Plan Plan Patient Disposition: Admit Acute Care w/in Hospital Problem List Clinical Impression: Soft tissue infection
[2025-03-16 21:38] LABS: Basophils # (Auto) 0.1 Thou/mm3 (0.0-0.2); Basophils % (Auto) 0 % (0-2.5); Eosinophils % (Auto) 0 % (0-10); Hematocrit 26.5 % (36.0-46.0); Hemoglobin 8.8 g/dL (12.0-16.0); Immature Granulocytes % (Auto) 4 % (0-0); Lymphocytes # (Auto) 2.7 Thou/mm3 (1.0-4.8); Lymphocytes % (Auto) 12 % (10-50); Mean Corpuscular HGB Conc 33.2 g/dl (31.0-37.0); Mean Corpuscular Hemoglobin 32.4 pg (25.0-35.0); Mean Corpuscular Volume 97 fL (80-100); Monocytes # (Auto) 1.3 Thou/mm3 (0.0-0.8); Monocytes % (Auto) 6 % (0-12); Neutrophils # (Auto) 17.4 Thou/mm3 (1.8-7.7); Neutrophils % (Auto) 78 % (37-80); Nucleated Red Blood Cell # 0.04 Thou/mm3 (0.00-0.00); Nucleated Red Blood Cell % 0 /100 WBC (0); Platelet Count 585 Thou/mm3 (140-440); RDW Standard Deviation 50.2 fL (36.4-46.3); Red Blood Count 2.72 Miln/mm3 (4.00-5.20); White Blood Count 22.4 Thou/mm3 (3.6-11.0)
[2025-03-16 21:54] VITALS: BP 178/55; PULSE 72; RESP 17; TEMP 36.4; O2SAT 100
[2025-03-16 21:58] LABS: Sed Rate (ESR) 52 mm/hr (0-30)
[2025-03-16 22:03] LABS: INR 1.1 (0.9-1.3); Partial Thromboplastin Time 23.1 Seconds (22.0-36.0)
[2025-03-16 22:07] LABS: B-Type Natriuretic Peptide 147 pg/mL (0-100)
[2025-03-16 22:10] LABS: Glucose Estimated Average 180 mg/dL (80-131); Hemoglobin A1C 7.9 % Hgb (4.8-6.0)
--- NOTE | 2025-03-16 22:11 | PC.LAC ---
CALLED NIGHT TIME PHARMACY IN REG[place] TO [facility]. LET THEM KNOW PER DR. RITA HAMMOND FOR PT TO GET MEDICATION.
[2025-03-16 22:14] LABS: Beta Hydroxybutyrate 0.2 mmol/L (<0.6)
[2025-03-16 22:15] LABS: Collection Type, Urine Clean Catch; Squamous Epithelial Cell,Urine 0 /hpf (0-5)
[2025-03-16 22:18] LABS: Carbon Dioxide 22.5 mMol/L (20.0-31.0); Chloride 100 mMol/L (98-107); Sodium 130 mMol/L (136-145)
[2025-03-16 22:19] LABS: Alanine Aminotransferase 20 U/L (10-49); Albumin, Serum 3.6 gm/dL (3.4-4.8); Albumin/Globulin Ratio 1.6 (1.2-2.2); Alkaline Phosphatase 67 U/L (46-116); Amylase 99 U/L (30-118); Anion Gap 8 (7-16); Aspartate Amino Transferase 16 U/L (0-34); BUN/Creatinine Ratio 48 Ratio (12-20); Bilirubin,Direct 0.1 mg/dL (0.0-0.3); Bilirubin,Total 0.3 mg/dL (0.3-1.2); Blood Urea Nitrogen 48 mg/dL (9-23); C-Reactive Protein 2.7 mg/dL (0.0-0.9); Calcium 8.7 mg/dL (8.3-10.6); Estimated Creatinine Clearance 38.4 mL/min (>60); Free T4 (Free Thyroxine) 1.13 ng/dL (0.89-1.76); Globulin 2.3 gm/dL (2.3-3.5); Glucose 285 mg/dL (74-106); Lipase 34 U/L (12-53); Osmolality,Calculated 283 (275-295); Procalcitonin 0.26 ng/ml (0.0-0.49); Thyroid Stimulating Hormone 8.72 uIU/mL (0.55-4.78); Total Protein 5.9 gm/dL (5.7-8.2); Troponin I 0.027 ng/mL (0.0-0.045); eGFR 59 See Note
[2025-03-16] MEDS: cefTRIAXone 1,000 MG in SODIUM CHLORIDE 0.9% (Popper) 50 ML 100 MG IV (22:24)
[2025-03-16 22:25] LABS: Bilirubin,Urine Negative (Negative); Blood,Urine Negative (Negative); Clarity,Urine Clear (Clear/Hazy); Color,Urine Yellow (Lt Yel-Yel); Culture Indicated,Urine Not Indicated; Glucose, Urine Negative (Negative); Hyaline Casts,Urine < 1 /hpf (0-1); Ketones,Urine Negative (Negative); Leukocyte Esterase,Urine Negative (Negative); Nitrite,Urine Negative (Negative); Protein,Urine Negative (Neg - Trace); RBC,Urine < 1 /hpf (0-3); Specific Gravity,Urine 1.012 (1.001-1.035); Urobilinogen,Urine Negative mg/dL (0.0-1.0); WBC,Urine 1 /hpf (0-5)
--- NOTE | 2025-03-16 23:00 | PC.NURSE ---
PT HAD LARGE BOWEL MOVEMENT WHILE HERE IN ER. PT REPORTS FEELING A LOT BETTER.
[2025-03-16 23:39] LABS: Potassium 5.6 mMol/L (3.4-5.1)
[2025-03-17] VITALS (14 sets, daily range): BP systolic 142–164; BP diastolic 56–90; PULSE 61–111; RESP 16–98; TEMP 36.2–36.6; O2SAT 95–99; BMI 20.9; BMI 13.0
--- NOTE | 2025-03-17 00:10 | XR_ITS ---
EXAMINATION: Ankle, right 3 views . Technique: Ankle AP, oblique, lateral 3 views Date and time of exam: March 17, 2024 0023 hours INDICATIONS: Nonhealing ulcer lateral ankle beginning 2023 FINDINGS: Soft tissue swelling adjacent to the fibular shaft, with soft tissue defect Old healed fracture distal tibia No jace cortical bone destruction No foreign body IMPRESSION: No jace cortical bone destruction MRI ankle follow-up, however, would best assess for early osteomyelitis
[2025-03-17 00:16] LABS: Reflex Lactate? Y
--- NOTE | 2025-03-17 00:25 | ESHP_ITS ---
Documentation for date of: 03/17/25 HPI History of Present Illness Chief complaint: general weakness, nausea, vomiting History of present illness: The patient is a 74-year-old female with a previous medical history of hypertension, hypothyroidism, insulin-dependent diabetes mellitus, osteoporosis, hemorrhoids, lateral ankle chronic wound who was brought to the ED due to general weakness, nausea and vomiting. Patient denies blood in the vomiting, blood in the stool. Denies history of GI bleeding. She also reported constipation previously, but had a large bowel movement in the ED. Daughter at the bedside, she reports that the patient has become gradually more weak in the last month and nausea and vomiting started in the last few days. Daughter also reports that the patient had an right ankle fracture approximately a year ago, initially she did not report that to her family, since then her mobility has declined due to the pain and she developed a chronic ulcer in the lateral side of the right ankle. She is following up with wound care. She used to be able to ambulate using the walker, but became very weak in the last few weeks and was unable to ambulate. Due to patient's condition, her daughter took her to her PCP, Dr. Johnson where she was found to have mouth sores and sores on her gluteal area. She was prescribed nystatin suspension and oral doxycycline. It helped with her sores, but not with weakness. Also, per chart review she tends to have elevated WBC count and has had multiple courses of oral antibiotics. Previous imaging of the ankle in November-December 2024 was negative for jace bone destruction. Patient was pending MRI outpatient before coming to the hospital. Imaging of the sacrum 01/30/25 showed old fracture of 5th sacral segment, negative for acute fracture. She also underwent course of hyperbaric oxygenation for the ulcer treatment without effect and underwent work-up for medication induced [place] syndrome, according to chart review, ACTH 9, total cortisol <1 in 01/2025, work-up for C3- C4c complement deficiency, which was negative. Hepatitis panel was negative, cryoglobulin was negative. She also underwent peripheral angiogram in 2023 which was negative for arterial stenosis. She is also is following up with client experience administrator Dr. Phelan, reports that she has hypertension and leaky valves. Her web content executive is Dr. Blum. ED course: BP 77/56, HR89, afebrile, saturating wel on room air. Labs showed WBC count of 22.4, hemoglobin 9.8, platelets 585, INR 1.1, sodium 130, potassium 6.0 went down to 5.6, BUN 48, creatinine 1.0, glucose 285, hemoglobin A1c 7.9%, lactic acid 3.5, C-reactive protein 2.7, TSH 8.72, free T4 1.30. UA was negative for signs of UTI. EKG showed sinus rhythm. Imaging was negative for pneumonia, bowel obstruction, showed 8 bilateral noncalcified pulmonary nodules, stable compared to 2023. Head CT was negative for gross hemorrhage or mass effect. In the ED she received 1 L of fluids, 5 units of insulin, ceftriaxone 1 g. Patient is going to be admitted for soft tissue infection work up and management. Social history: lives with her daughter, not a smoker Medications: Bumetanide 0.5, nicardipine 20 mg twice daily, pantoprazole, escitalopram, metformin, spironolactone, olmesartan, atorvastatin, doxycycline, levothyroxine, metoprolol, alendronate. Surgical history: hernia repair, hysterectomy, ORIF of the right hip Allergies: reports sensitivity to opioids - vomiting, most likely side effect, penicillin. Review of Systems Review of Systems Systems Reviewed: All systems reviewed, normal except as documented Past Medical History Past Medical History CARDIAC: Positive Cardiac Disorders, Hypercholesterolemia, Valvular Heart Disease and Hypertension GASTROINTESTINAL: Positive Gastrointestinal Disorders, Gastrointestinal Bleed and Obesity REPRODUCTIVE: Positive Previous Pregnancies MUSCULOSKELETAL: Positive Musculoskeletal Disorders, Degenerative Disk Disease and Fractures ENDOCRINE: Positive Endocrine Disorders, Diabetes Mellitus Type 2 and Hypothyroidism HEMATOLOGIC: Positive Blood Disorders OTHER HISTORY: Positive Chicken Pox and Measles Family History FAMILY HISTORY: Positive Family Cardiac Disorders and Family Cancer Surgical History SURGICAL: Positive Open Reduction Internal Fixation and Hysterectomy Exam Vital Signs Temp Pulse Resp BP Pulse Ox O2 Del Method 97.9 F 62 16 158/82 H 99 Room Air 03/17/25 00:03/17/25 00:03/17/25 00:03/17/25 00:03/17/25 00:03/17/25 00:22 Narrative Exam Physical Exam General: Awake, chronically ill-appearing HEENT: Normocephalic, atraumatic, mucous membranes moist. Heart: Regular rate and rhythm, no murmurs. Lungs: Clear to auscultation with no wheezing or crackles. Abdomen: Soft, nondistended, nontender, positive bowel sounds. ?No guarding or rebound tenderness. Neurologic: Alert, no gross neurological deficit, and patient able to move all 4 extremities. Extremities: Pitting 3+ edema of the feet, no ankle edema. Right foot is covered in bandage, wound-vac tube is attached to the wound, no surrounding redness. Lower extremities muscles sarcopenia. Skin: Small ecchymosis on the left periumbilical area after insulin injection. External hemorrhoids. Pressure sores with mild erythema on the internal upper gluteal quadrants bilaterally, approximately 0.5 cm-1cm on the left, 4-5 cm on the right. Results: Labs 03/16/25 21:10 03/16/25 22:24 Labs: Short CBC 03/16/25 Range/Units 21:10 WBC 22.4 H (3.6-11.0) Thou/mm3 Hgb 8.8 L (12.0-16.0) g/dL Hct 26.5 L (36.0-46.0) % Plt Count 585 H D (140-440) Thou/mm3 BMP 03/16/25 03/16/25 21:10 22:24 Sodium 130 L Potassium 6.0 H 5.6 H Chloride 100 Carbon Dioxide 22.5 BUN 48 H Creatinine 1.0 Glucose 285 H Calcium 8.7 Cardiac Enzymes 03/16/25 Range/Units 21:10 Troponin I 0.027 (0.0-0.045) ng/mL Liver Function 03/16/25 Range/Units 21:10 Total Bilirubin 0.3 (0.3-1.2) mg/dL Direct Bilirubin 0.1 (0.0-0.3) mg/dL AST 16 (0-34) U/L ALT 20 (10-49) U/L Alkaline Phosphatase 67 (46-116) U/L Albumin 3.6 (3.4-4.8) gm/dL Urine 03/16/25 Range/Units 22:00 Urine Color Yellow (Lt Yel-Yel) Urine Clarity Clear (Clear/Hazy) Urine pH 6.0 (5.0-7.0) Ur Specific [place] 1.012 (1.001-1.035) Urine Protein Negative (Neg - Trace) Urine Glucose (UA) Negative (Negative) Quality Measures Quality Measures VTE prophylaxis Advance care planning discussed with:: patient Medications Home Medications and Allergies Home Medications ?Medication ?Instructions ?Recorded ?Confirmed ?Type levothyroxine 75 mcg tablet 75 mcg PO QDAY 04/13/19 History alendronate 70 mg tablet 70 mg PO QWEEK 07/11/2402/28 History atorvastatin 20 mg tablet 20 mg PO QDAY 07/11/2403/17 History metoprolol succinate 25 mg 25 mg PO DAILY 07/11/24 History tablet,extended release 24 hr nicardipine 20 mg capsule 20 mg PO BID 07/11/24 History sitagliptin phosphate 25 mg tablet 25 mg PO DAILY 06/3008/08/24 History (Januvia) insulin degludec 200 unit/mL (3 10 unit subcut QPM 05/2308/08/24 History mL) subcutaneous pen (Tresiba FlexTouch U-200 insulin) metformin 500 mg tablet 500 mg PO BID 08/05/2403/17 History magnesium oxide 400 mg (241.3 mg 400 mg PO BID 4 08/08/24 History magnesium) tablet pantoprazole 40 mg tablet,delayed 40 mg PO DAILY 08/0803/17/25 History release bumetanide 0.5 mg tablet 0.5 mg PO QDAY 03/17/2502/28 History doxycycline hyclate 100 mg tablet 100 mg PO Q12H 03/1703/17/25 History escitalopram oxalate 10 mg tablet 10 mg PO QDAY 03/17/25 History olmesartan 20 mg tablet 20 mg PO QDAY 03/17/2503/17 History spironolactone 25 mg tablet 25 mg PO QDAY 03/17/25 History Allergies Allergy/AdvReac Type Severity Reaction Status Date / Time codeine Allergy Severe Vomiting Verified 03/16/25 19:12 hydrocodone Allergy Severe Vomiting Verified 03/16/25 19:12 morphine Allergy Severe GOES Verified 03/16/25 19:12 CRAZY Penicillins Allergy Severe Swelling Verified 03/16/25 19:12 of Lip/Tongue/Throat tramadol Allergy Severe Vomiting Verified 03/16/25 19:12 acetaminophen (From Vicodin) Allergy Vomiting Verified 03/16/25 19:12 Visit Medications Acetaminophen (Acetaminophen 325 Mg Tablet) 650 mg PO Q6H PRN PRN Reason: Fever >100.3 or pain 1-3 Stop: 04/16/25 00:04 Amlodipine Besylate (Amlodipine Besylate 5 Mg Tablet) 5 mg PO QDAY [facility] Stop: 04/16/25 08:59 Atorvastatin Calcium (Atorvastatin Calcium 20 Mg Tablet) 20 mg PO HS [facility] Stop: 04/16/25 20:59 Dextrose (Dextrose 50%-Water Inj 50 Ml Syringe) 25 ml IV Q15MIN PRN PRN Reason: BG 50-70 responsive npo pt Stop: 04/16/25 00:10 Dextrose (Dextrose 50%-Water Inj 50 Ml Syringe) 50 ml IV Q15MIN PRN PRN Reason: BG <50 OR BG <70 & pt unresponsive Stop: 04/16/25 00:10 Escitalopram Oxalate (Escitalopram Oxalate 10 Mg Tablet) 10 mg PO QDAY [facility] Stop: 04/16/25 08:59 Glucagon (Glucagon Inj 1 Mg Vial) 1 mg IM Q15MIN PRN PRN Reason: BG <70, and no IV access Heparin Sodium (Porcine) (Heparin Sod Inj 5000 Unit/Ml Vial) 5,000 unit SC Q8HR [facility] Stop: 03/31/25 05:59 Hydralazine HCl (Hydralazine Inj 20 Mg/Ml Vial) 10 mg IV Q2HR PRN PRN Reason: SBP>180 Stop: 04/16/25 01:59 Cefepime HCl 2 gm/ Sodium (Chloride) 50 mls @ 100 mls/hr IV Q8HR [facility] Stop: 03/24/25 00:10 Insulin Glargine (Insulin Glargine (Lantus) 5 Unit/0.05 Ml (Per 5 Units)) 12 unit SC QDAY [facility] Stop: 04/16/25 08:59 Insulin Human Lispro (Insulin Lispro (Admelog) 1 Unit/0.01 Ml Unit) 0 unit SC [facility]; Protocol Stop: 04/16/25 07:29 Ketorolac Tromethamine (Ketorolac Inj 30 Mg/Ml Vial) 15 mg IVP Q6HR PRN PRN Reason: PAIN SCALE 4-10(Mod-Sev Stop: 03/22/25 00:08 Ondansetron HCl (Ondansetron Inj 2 Mg/Ml Inj 2 Ml) 4 mg IV Q6HR PRN; Protocol PRN Reason: NAUSEA OR VOMITING Stop: 04/16/25 00:19 Sennosides (Senna Tablet) 1 tab PO QDAY PRN; Protocol PRN Reason: constipation Stop: 04/16/25 00:04 Vancomycin/Sodium Chloride (Vancomycin In Ns 1 Gm/200 Ml Bag) 1 gm IV X1 ONE Stop: 03/17/25 00:31 Discontinued Medications Acetaminophen (Acetaminophen 325 Mg Tablet) 650 mg PO X1 ONE Stop: 03/16/25 21:26 Last Admin: 03/16/25 22:26 Dose: Not Given Sodium Chloride (Ns) 1,000 mls @ 999 mls/hr IV .Q1H1M ONE Stop: 03/16/25 21:29 Last Infusion: 03/16/25 22:27 Dose: Infused Ceftriaxone Sodium 1,000 mg/ (Sodium Chloride) 50 mls @ 100 mls/hr IV X1 ONE Stop: 03/16/25 21:57 Last Infusion: 03/16/25 22:54 Dose: Infused Insulin Human Regular (Insulin Hum Regular 1 Unit/0.01 Ml (Per Unit)) 5 unit IV X1 ONE Stop: 03/16/25 20:31 Last Admin: 03/16/25 21:21 Dose: 5 unit Morphine Sulfate (Morphine Sulf Inj 10 Mg/Ml Vial) 4 mg IVP X1 ONE Stop: 03/16/25 20:30 Last Admin: 03/16/25 21:07 Dose: Not Given Ondansetron HCl (Ondansetron Inj 2 Mg/Ml Inj 2 Ml) 4 mg IV X1 ONE; Protocol Stop: 03/16/25 20:30 Last Admin: 03/16/25 21:22 Dose: Not Given Pharmacy Consult (Vancomycin Pharmacy To Dose 1 Each Each) 1 each IV QDAY JESSICA Stop: 04/16/25 08:59 Assessment & Plan Plan The patient is a 74-year-old female with a previous medical history of hypertension, hypothyroidism, insulin-dependent diabetes mellitus, osteoporosis, hemorroids, lateral ankle chronic wound who was brought to the ED due to general weakness, nausea and vomiting. Patient is going to be admitted for soft tissue infection work up and management. #Soft tissue infection #Suspected osteomyelitis of the right lateral malleolus #Diabetic foot ulcer qSOFA score is 0. Patient is generally weak and has 2 potential sources of infection - pressure sores and chronic ankle wound. She has also chronic leukocytosis and has received multiple courses of antibiotics before. She also underwent course of hyperbaric oxygenation for the ulcer treatment without effect and underwent work-up for medication induced [place] syndrome, according to chart review, ACTH 9, total cortisol <1 in 01/2025, work-up for C3-C4c complement deficiency, which was negative. Hepatitis panel was negative, cryglobulin was negative. She also underwent peripheral angiogram in 2023 which was negative for arterial stenosis. Plan: - empiric antibiotics coverage, modify according to the cultures - vancomycin 03/17/25-current - cefepime 2g q8hr 03/17/25-current - wound care - ankle x-ray - blood cultures pending - MRSA screen ordered #Type 2 diabetes mellitus Patient is on Tresiba 12 U qday with sliding scale insulin and metformin. A1c 7.9%. Plan: - Glargine 12 u qday - Sliding scale insulin with fingerstick blood sugar checks - hypoglycemia protocol #Hypertension #History of valve disease Patient is following with Dr. Phelan. She has multiple blood pressure medication on board, including nicardipine. In the ED, her BP was ranging from 77/56 to the SBP in the 170s. Plan: - amlodipine 5 mg qday - hydralazine 10 mg IV prn q2hr if SBP>180 - consider consulting cardiology if BP is not controlled - home olmesartan and spironolactone on hold due hyperkalemia #Hyperkalemia Most likely side effect of spironolactone and olmesartan. Plan: - spironolactone and olmesartan on hold - monitor daily CMP #History of depression Plan: - resumed home lexapro #Hypothyroidism Plan: - resumed home levothyroxine #Anemia According to chart review, appears chronic, most likely in the setting of chronic disease. Plan: - FOBT - transfuse of Hgb<7 Health maintenance: FEN: cardiac, carbohydrate consistent DVT prophylaxis: heparin sc GI prophylaxis: none Dispo: medtele CODE STATUS: DNR (patient declined resuscitation in case of cardiac arrest, witnessed by the daughter and Dr. Aguilera) Plan of care discussed with attending Dr. Aguilera. Rosie Caraballo MD, PGY 1. Attending Provider Attestation/Addendum I have examined the patient, reviewed labs and imaging findings, discussed the case with the resident(s), and reviewed entered orders. I agree with the plan of care as outlined in this note, with these additional summaries/recommendations: Patient is a 74-year-old female with a medical history of primary hypertension, hyperlipidemia, valvular heart disease followed by Dr. 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 Patient and daughter seen at bedside. Patient has had leukocytosis dating back to 06/2024 although has worsened. WBC 22.4. Suspect elevated WBCs secondary to right ankle decubitus ulcer although does not appear to have responded to outpatient oral antibiotics. We will order x-ray to rule out osteomyelitis. ESR 52 and CRP 2.7. Patient had wound VAC placed on ulcer yesterday with wound care. Patient also noted to have stage I decubitus ulcer with mild purulence. Start IV antibiotics including vancomycin and follow-up blood culture results. Consult in-house wound care. Pressure redistribution as tolerated. Patient was also recently diagnosed with oral/esophageal candidiasis and resume oral nystatin for 1 more day. Patient has labile blood pressure. Patient was originally hypotensive in the ED with BP 84/46 with blood pressure then increasing to 182/77. Patient takes oral nicardipine, olmesartan, spironolactone, and Bumex. Suspect nicardipine may be dropping patient's blood pressure and we will touch base with Dr. Phelan tomorrow. We will hold oral nicardipine for now and transition to amlodipine. As needed hydralazine if needed. Hyperkalemia present on chemistry panel. Potassium originally 6.0 and improved to 5.6 with 5 units of regular insulin. Hyperkalemia most likely secondary to medications from spironolactone and olmesartan. No EKGs indicative of hyperkalemia. Given that potassium is improving and most likely secondary to medications we will monitor for now and give additional medications if needed. Patient also found to have lactic acidosis with LA 3.5. Most likely secondary to type A from hypotension versus type B from metformin. Patient received 1 L fluid bolus in ED. Follow-up reflex lactic acid. Patient has diabetes mellitus type 2 complicated by diabetic nephropathy. Most recent A1c 7.9%. Resume home glargine 12 units daily and start insulin sliding scale. We will hold olmesartan given hyperkalemia. Resume home levothyroxine. Patient found to have left foot edema which is most likely dependent from being relatively bedbound. Okay to resume home Bumex as tolerated. Physical therapy consultation for generalized weakness. Zofran as needed for nausea/vomiting. Suspect this is medication induced versus hypotension. CT abdomen did not reveal any acute pathology. It did show stable bilateral pulmonary nodules that are unchanged from previous imaging. Patient's daughter reports she has allergies to multiple pain medicines and we will give Toradol as needed for pain management. Patient and daughter updated on the plan and in agreement. All questions answered to satisfaction. Please see residents note for additional details and management. Dr. Willy MD
[2025-03-17 00:57] LABS: Lactic Acid, 3 HR 1.4 mMol/L (0.4-2.0)
[2025-03-17 01:01] LABS: Allen Test Performed/OK; Base Excess 0 (-3-3); HCO3 24 mEq/L (20-26); Inspired Oxygen, FIO2 21 %; O2 Saturation 95 % (91-98); PCO2 36 mmHg (32.0-48.0); PO2 81 mmHg (83-108); Puncture Site Right Radial; pH, Arterial 7.44 (7.35-7.45)
--- NOTE | 2025-03-17 01:10 | PC.NURSE ---
UNABLE TO SCAN CEFEPIME 2GM IV, CALLED PHARMACY. PHARMACY UNABLE TO FIX ISSUE, PER PHARMACY JUST VERIFY MEDICATION WITH ANOTHER NURSE AT THIS TIME.
[2025-03-17] MEDS: CEFEPIME INJ 2 GM in SODIUM CHLORIDE 0.9% (Popper) 50 ML IV ×4 (01:16→22:29)
[2025-03-17 01:26] LABS: Sed Rate (ESR) 43 mm/hr (0-30)
[2025-03-17] MEDS: VANCOMYCIN in NS 1 GM/200 ML BAG IV (01:53)
[2025-03-17] MEDS: ACETAMINOPHEN 325 MG TABLET 650 MG PO (04:09)
[2025-03-17] MEDS: LEVOTHYROXINE SODIUM 25 MCG TABLET 75 MCG PO (05:04)
[2025-03-17] MEDS: HEPARIN SOD INJ 5000 UNIT/ML VIAL SC ×3 (05:04→22:29)
[2025-03-17] MEDS: NYSTATIN SUSP 5 ML UDC PO ×4 (05:04→20:18)
[2025-03-17 07:05] LABS: Basophils % (Auto) 0 % (0-2.5); Eosinophils % (Auto) 0 % (0-10); Hematocrit 24.2 % (36.0-46.0); Immature Granulocytes % (Auto) 3 % (0-0); Immature Granulocytes Auto 0.65 Thou/mm3 (0.00-0.00); Lymphocytes # (Auto) 2.5 Thou/mm3 (1.0-4.8); Lymphocytes % (Auto) 13 % (10-50); Mean Corpuscular HGB Conc 32.2 g/dl (31.0-37.0); Mean Corpuscular Hemoglobin 32.4 pg (25.0-35.0); Mean Corpuscular Volume 100 fL (80-100); Monocytes # (Auto) 1.1 Thou/mm3 (0.0-0.8); Monocytes % (Auto) 6 % (0-12); Neutrophils # (Auto) 15.3 Thou/mm3 (1.8-7.7); Neutrophils % (Auto) 78 % (37-80); Nucleated Red Blood Cell # 0.06 Thou/mm3 (0.00-0.00); Nucleated Red Blood Cell % 0 /100 WBC (0); Platelet Count 481 Thou/mm3 (140-440); RDW Standard Deviation 51.1 fL (36.4-46.3); Red Blood Count 2.41 Miln/mm3 (4.00-5.20); White Blood Count 19.7 Thou/mm3 (3.6-11.0)
[2025-03-17 07:14] LABS: Hemoglobin 7.8 g/dL (12.0-16.0)
[2025-03-17 07:30] LABS: Alanine Aminotransferase 16 U/L (10-49); Albumin, Serum 3.1 gm/dL (3.4-4.8); Albumin/Globulin Ratio 1.6 (1.2-2.2); Alkaline Phosphatase 63 U/L (46-116); Anion Gap 8 (7-16); Aspartate Amino Transferase 15 U/L (0-34); BUN/Creatinine Ratio 63 Ratio (12-20); Bilirubin,Total 0.3 mg/dL (0.3-1.2); Blood Urea Nitrogen 38 mg/dL (9-23); Calcium 8.1 mg/dL (8.3-10.6); Calcium (Corrected) 8.8 mg/dL (8.5-10.1); Carbon Dioxide 23.9 mMol/L (20.0-31.0); Chloride 105 mMol/L (98-107); Creatinine (Component) 0.6 mg/dL (0.6-1.3); Estimated Creatinine Clearance 64.1 mL/min (>60); Glucose 93 mg/dL (74-106); Magnesium 2.2 mg/dL (1.6-2.6); Osmolality,Calculated 282 (275-295); Potassium 5.2 mMol/L (3.4-5.1); Sodium 137 mMol/L (136-145); Total Protein 5.1 gm/dL (5.7-8.2); eGFR > 60 See Note
[2025-03-17] MEDS: KETOROLAC INJ 30 MG/ML VIAL 15 MG IVP (08:28)
[2025-03-17] MEDS: ESCITALOPRAM OXALATE 10 MG TABLET PO (08:29)
[2025-03-17] MEDS: amLODIPine BESYLATE 5 MG TABLET PO (08:29)
[2025-03-17] MEDS: INSULIN GLARGINE (Lantus) 5 UNIT/0.05 ML (PER 5 UNITS) 12 UNIT SC (08:59)
--- NOTE | 2025-03-17 09:19 | PC.SS ---
Follow up note: Pt is on IV antibiotic.
[2025-03-17] MEDS: HYDROmorphone INJ 2 MG/ML VIAL 0.25 MG IVP ×3 (11:13→22:46)
--- NOTE | 2025-03-17 12:27 | PC.SS ---
PASRR assessment has been cancelled. Patient's choice is to return home with HH upon d.c.
--- NOTE | 2025-03-17 14:51 | PC.SS ---
SS met with patient and her son, Artemio regarding her d/c plan.? Pt is alert/oriented.? Pt was admitted for Soft Tissue Infection.? Pt confirmed demographic and contact information is correct on facesheet.? Pt is going to be residing with her dtr, Jennifer Glass, phone# [phone].? Pt ambulates using a 4 wheel with seat, rollator walker.? Pt requires assistance with all ADLs.? Jennifer Dacosta helps care for pt at home.? Pt named her son, Artemio Pickens or Jennifer dacosta medical decision makers if she is unable.? SS provided verbal d/c options for home or SNF.? Patient?s choice is to return home with HH upon d/c.? Pt states she followed by HH agency out of the area.? Pt is now requesting a new HH agency.? Pt followed up with PCP on 03-15-25. D/C plan:? Return home with HH Next of Kin:? Artemio Pickens, son, phone# [phone], Jennifer Glass [phone], Christine Martinez, phone# [phone] PCP:? Dr. Luisa Beck Address:? Correct on facesheet HH: New agency
--- NOTE | 2025-03-17 15:50 | ESPR_ITS ---
Documentation for date of: 03/17/25 Subjective Subjective Interval history: Patient examined at bedside, complains of weakness and nausea with vomiting. Decreased appetite. Lower extremity foot pain. Blood pressure slightly hypertensive 154/92. Leukocytosis improving to 19, hyperkalemia down trended to 5.2. Will continue to hold spironolactone and olmesartan. Continuing vancomycin and cefepime in setting of patient's soft tissue infection. Outpatient ACTH and cortisol levels have been negative. Follow-up with MRI right foot. PT evaluation pending. Exam Vital Signs Temp Pulse Resp BP Pulse Ox O2 Del Method 97.7 F 90 18 142/56 H 96 Room Air 03/17/25 12:00 03/17/25 13:45 03/17/25 13:45 03/17/25 12:00 03/17/25 12:00 03/17/25 12:00 Narrative Exam General: Elderly female, Awake, ill-appearing HEENT: Normocephalic, atraumatic, mucous membranes dry. Heart: Regular rate and rhythm, no murmurs. Lungs: Clear to auscultation with no wheezing or crackles. Abdomen: Soft, nondistended, nontender, positive bowel sounds. ?No guarding or rebound tenderness. Neurologic: Alert, no gross neurological deficit, and patient able to move all 4 extremities. Extremities: Pitting 2+ edema of the feet, no ankle edema. Right foot is covered in bandage, right maleolous ulcer stage 2-3 Skin: sacral pressure ulcer stage 2, 3-4 inches long Objective Labs 03/17/25 06:14 03/17/25 06:14 Labs: Laboratory Results - last 24 hr 03/16/25 03/16/25 03/16/25 21:10 22:00 22:24 WBC 22.4 H RBC 2.72 L Hgb 8.8 L Hct 26.5 L MCV 97 MCH 32.4 MCHC 33.2 RDW Std Deviation 50.2 H Plt Count 585 H D Neut % (Auto) 78 Lymph % (Auto) 12 [place] % (Auto) 6 Eos % (Auto) 0 Baso % (Auto) 0 Neut # (Auto) 17.4 H Lymph # (Auto) 2.7 [place] # (Auto) 1.3 H Eos # (Auto) 0.0 Baso # (Auto) 0.1 Immature Gran # (Auto) 0.90 H Absolute Nucleated RBC 0.04 H Immature Gran % 4 H Nucleated RBC % 0 ESR 52 H PT 12.0 INR 1.1 APTT 23.1 Puncture Site ABG pH ABG pCO2 ABG pO2 ABG HCO3 ABG O2 Saturation ABG Base Excess FiO2 Sodium 130 L Potassium 6.0 H 5.6 H Chloride 100 Carbon Dioxide 22.5 Anion Gap 8 BUN 48 H Creatinine 1.0 Estim Creat Clear Calc 38.4 L eGFR 59 L BUN/Creatinine Ratio 48 H Glucose [address] Glu mg/dL 180 H Hemoglobin A1c 7.9 H Calculated Osmolality 283 Lactic Acid 3.5 H Calcium 8.7 Corrected Calcium 9.0 Magnesium 2.0 Total Bilirubin 0.3 Direct Bilirubin 0.1 AST 16 ALT 20 Alkaline Phosphatase 67 Troponin I 0.027 C-Reactive Prot, Quant 2.7 H B-Natriuretic Peptide 147 H Total Protein 5.9 Albumin 3.6 Globulin 2.3 Albumin/Globulin Ratio 1.6 Amylase 99 Lipase 34 Beta-Hydroxybutyrate/Acetoacetate 0.2 Procalcitonin 0.26 TSH 8.72 H D Free T4 1.13 Ur Collection Type Clean Catch Urine Color Yellow Urine Clarity Clear Urine pH 6.0 Ur Specific [place] 1.012 Urine Protein Negative Urine Glucose (UA) Negative Urine Ketones Negative Urine Blood Negative Urine Nitrite Negative Urine Bilirubin Negative Urine Urobilinogen (Auto) Negative Ur Leukocyte Esterase Negative Urine RBC < 1 Urine WBC 1 Ur Squamous Epith Cells 0 Urine Bacteria None Hyaline Casts < 1 Ur Culture Indicated? Not Indicated 03/17/25 03/17/25 03/17/25 00:44 00:53 06:14 WBC 19.7 H RBC 2.41 L Hgb 7.8 L Hct 24.2 L MCV 100 MCH 32.4 MCHC 32.2 RDW Std Deviation 51.1 H Plt Count 481 H D Neut % (Auto) 78 Lymph % (Auto) 13 [place] % (Auto) 6 Eos % (Auto) 0 Baso % (Auto) 0 Neut # (Auto) 15.3 H Lymph # (Auto) 2.5 [place] # (Auto) 1.1 H Eos # (Auto) 0.0 Baso # (Auto) 0.0 Immature Gran # (Auto) 0.65 H Absolute Nucleated RBC 0.06 H Immature Gran % 3 H Nucleated RBC % 0 ESR 43 H PT INR APTT Puncture Site Right Radial ABG pH 7.44 ABG pCO2 36 ABG pO2 81 L ABG HCO3 24 ABG O2 Saturation 95 ABG Base Excess 0 FiO2 21 Sodium 137 Potassium 5.2 H Chloride 105 Carbon Dioxide 23.9 Anion Gap 8 BUN 38 H Creatinine 0.6 Estim Creat Clear Calc 64.1 eGFR > 60 BUN/Creatinine Ratio 63 H Glucose [address] Glu mg/dL Hemoglobin A1c Calculated Osmolality 282 Lactic Acid 1.4 Calcium 8.1 L Corrected Calcium 8.8 Magnesium 2.2 Total Bilirubin 0.3 Direct Bilirubin AST 15 ALT 16 Alkaline Phosphatase 63 Troponin I C-Reactive Prot, Quant B-Natriuretic Peptide Total Protein 5.1 L Albumin 3.1 L D Globulin 2.0 L Albumin/Globulin Ratio 1.6 Amylase Lipase Beta-Hydroxybutyrate/Acetoacetate Procalcitonin TSH Free T4 Ur Collection Type Urine Color Urine Clarity Urine pH Ur Specific [place] Urine Protein Urine Glucose (UA) Urine Ketones Urine Blood Urine Nitrite Urine Bilirubin Urine Urobilinogen (Auto) Ur Leukocyte Esterase Urine RBC Urine WBC Ur Squamous Epith Cells Urine Bacteria Hyaline Casts Ur Culture Indicated? ABG Interpretation ABG results: 03/17/25 00:53 ABG pH 7.44 ABG pCO2 36 ABG pO2 81 L ABG HCO3 24 ABG O2 Saturation 95 ABG Base Excess 0 Quality Measures Quality Measures VTE prophylaxis Advance care planning discussed with:: patient Assessment & Plan Assessment Current Active Medications: Generic Name Dose Route Start Last Admin Trade Name Freq PRN Reason Stop Dose Admin Acetaminophen 650 mg 03/17/25 00:05 03/17/25 04:09 Acetaminophen 325 Mg Tablet PO 04/16/25 00:04 650 mg Q6H PRN Administration Fever >100.3 or pain 1-3 Amlodipine Besylate 5 mg 03/17/25 09:00 03/17/25 08:29 Amlodipine Besylate 5 Mg Tablet PO 04/16/25 08:59 5 mg QDAY JESSICA Administration Atorvastatin Calcium 20 mg 03/17/25 21:00 Atorvastatin Calcium 20 Mg Tablet PO 04/16/25 20:59 HS JESSICA Dextrose 25 ml 03/17/25 00:11 Dextrose 50%-Water Inj 50 Ml Syringe IV 04/16/25 00:10 Q15MIN PRN BG 50-70 responsive npo pt Dextrose 50 ml 03/17/25 00:11 Dextrose 50%-Water Inj 50 Ml Syringe IV 04/16/25 00:10 Q15MIN PRN BG <50 OR BG <70 & pt unresponsive Escitalopram Oxalate 10 mg 03/17/25 09:00 03/17/25 08:29 Escitalopram Oxalate 10 Mg Tablet PO 04/16/25 08:59 10 mg QDAY JESSICA Administration Glucagon 1 mg 03/17/25 00:11 Glucagon Inj 1 Mg Vial IM Q15MIN PRN BG <70, and no IV access Heparin Sodium (Porcine) 5,000 unit 03/17/25 06:00 03/17/25 14:15 Heparin Sod Inj 5000 Unit/Ml Vial SC 03/31/25 05:59 5,000 unit Q8HR JESSICA Administration Hydralazine HCl 10 mg 03/17/25 00:13 Hydralazine Inj 20 Mg/Ml Vial IV 04/16/25 01:59 Q2HR PRN SBP>180 Hydromorphone HCl 0.25 mg 03/17/25 11:00 03/17/25 11:13 Hydromorphone Inj 2 Mg/Ml Vial IVP 03/22/25 10:59 0.25 mg Q4HR PRN Administration PAIN SCALE 4-10(Mod-Sev Cefepime HCl 2 gm/ Sodium 50 mls @ 100 mls/hr 03/17/25 06:15 03/17/25 14:14 Chloride IV 03/24/25 06:14 100 mls/hr Q8HR JESSICA Administration Insulin Glargine 12 unit 03/17/25 09:00 03/17/25 08:59 Insulin Glargine (Lantus) 5 Unit/0.05 Ml (Per 5 Units) SC 04/16/25 08:59 12 unit QDAY JESSICA Administration Insulin Human Lispro 0 unit 03/17/25 07:30 03/17/25 11:37 Insulin Lispro (Admelog) 1 Unit/0.01 Ml Unit SC 04/16/25 07:29 Not Given AC [facility] Protocol Ketorolac Tromethamine 15 mg 03/17/25 00:09 03/17/25 08:28 Ketorolac Inj 30 Mg/Ml Vial IVP 03/22/25 00:08 15 mg Q6HR PRN Administration PAIN SCALE 4-10(Mod-Sev Levothyroxine Sodium 75 mcg 03/17/25 06:00 03/17/25 05:04 Levothyroxine Sodium 25 Mcg Tablet PO 04/16/25 05:59 75 mcg ACBR JESSICA Administration Nystatin 5 ml 03/17/25 06:00 03/17/25 12:12 Nystatin Susp 5 Ml Udc PO 03/18/25 06:59 5 ml QID JESSICA Administration Ondansetron HCl 4 mg 03/17/25 00:20 Ondansetron Inj 2 Mg/Ml Inj 2 Ml IV 04/16/25 00:19 Q6HR PRN NAUSEA OR VOMITING Protocol Sennosides 1 tab 03/17/25 00:05 Senna Tablet PO 04/16/25 00:04 QDAY PRN constipation Protocol Plan Katharine Goldberg is a 74-year-old female with a previous medical history of hypertension, hypothyroidism, insulin-dependent diabetes mellitus, osteoporosis, hemorroids, lateral ankle chronic wound who was brought to the ED due to general weakness, nausea and vomiting. Patient is going to be admitted for soft tissue infection work up and management. #Soft tissue infection #Right lateral malleolus ulcer #Diabetic foot ulcer qSOFA score is 0. Patient is generally weak and has 2 potential sources of infection - pressure sores and chronic ankle wound. She has also chronic leukocytosis and has received multiple courses of antibiotics before. 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 Hepatitis panel was negative, cryglobulin was negative. She also underwent peripheral angiogram in 2023 which was negative for arterial stenosis. Ankle xray No jace cortical bone destruction. Plan: - vancomycin 03/17/25-current - cefepime 2g q8hr 03/17/25-current - wound care - blood cultures pending - MRSA screen ordered -follow up with MRI -IV dilaudid 0.25mg q4hr PRN #Type 2 diabetes mellitus Patient is on Tresiba 12 U qday with sliding scale insulin and metformin. A1c 7.9%. Plan: - Glargine 12 units qday - Sliding scale insulin with fingerstick blood sugar checks - hypoglycemia protocol -Lyrica for neuropathic pain #Hypertension #History of valve disease Patient is following with Dr. Phelan. She has multiple blood pressure medication on board, including nicardipine. In the ED, her BP was ranging from 77/56 to the SBP in the 170s. Plan: - amlodipine 5 mg qday - hydralazine 10 mg IV prn q2hr if SBP>180 - consider consulting cardiology if BP is not controlled - home olmesartan and spironolactone on hold due hyperkalemia #Hyperkalemia-improving Most likely side effect of spironolactone and olmesartan. Plan: - spironolactone and olmesartan on hold - monitor daily CMP #History of depression Plan: - resumed home lexapro #Hypothyroidism Plan: - resumed home levothyroxine 75mcg #Anemia According to chart review, appears chronic, most likely in the setting of chronic disease. Plan: - FOBT - transfuse of Hgb<7 Health maintenance: FEN: cardiac, carbohydrate consistent DVT prophylaxis: heparin sc GI prophylaxis: none Dispo: IV antibiotics, MRI pending CODE STATUS: DNR (patient declined resuscitation in case of cardiac arrest, witnessed by the daughter and Dr. Aguilera) The patient's management plan was discussed with my attending physician Dr. Morin. Martha Johnson, PGY-1 Attending Provider Attestation/Addendum I have discussed and was present for the essential components of the history, physical examination, diagnosis, and treatment plan with the resident. I agree with the patient's care as documented by the resident and amended herein by me. Jose Morin DO. Although this document has been carefully reviewed, there may still be some phonetic and other typographical errors. These errors are purely grammatical due to imperfections in the software program and should not be construed in any way to compromise the substance of the patient's medical care during this visit.
--- NOTE | 2025-03-17 16:33 | PC.PT ---
Patient is safe to stand pivot transfer to a bedside commode with a FWW and 1 staff assist for safety. RN made aware.
[2025-03-17] MEDS: INSULIN LISPRO (AdmeLOG) 1 UNIT/0.01 ML UNIT SC (17:09)
[2025-03-17] MEDS: ATORVASTATIN CALCIUM 20 MG TABLET PO (20:15)
[2025-03-18] VITALS (12 sets, daily range): BP systolic 130–151; BP diastolic 56–78; PULSE 90–114; RESP 15–98; TEMP 36.3–37.2; O2SAT 93–97
[2025-03-18] MEDS: KETOROLAC INJ 30 MG/ML VIAL 15 MG IVP ×3 (01:40→20:39)
--- NOTE | 2025-03-18 02:27 | PC.NURSE ---
Per Simón from lab, patient's blood culture from both aerobic bottles came back (+) for Gram-positive cocci. Dr. Terence Rivera was made aware.
[2025-03-18] MEDS: HYDROmorphone INJ 2 MG/ML VIAL 0.25 MG IVP ×2 (05:25→16:26)
[2025-03-18 05:27] LABS: Basophils # (Auto) 0.1 Thou/mm3 (0.0-0.2); Basophils % (Auto) 0 % (0-2.5); Eosinophils % (Auto) 0 % (0-10); Hematocrit 23.4 % (36.0-46.0); Immature Granulocytes % (Auto) 3 % (0-0); Immature Granulocytes Auto 0.57 Thou/mm3 (0.00-0.00); Lymphocytes # (Auto) 3.1 Thou/mm3 (1.0-4.8); Lymphocytes % (Auto) 14 % (10-50); Mean Corpuscular HGB Conc 31.6 g/dl (31.0-37.0); Mean Corpuscular Hemoglobin 31.9 pg (25.0-35.0); Mean Corpuscular Volume 101 fL (80-100); Monocytes % (Auto) 5 % (0-12); Neutrophils # (Auto) 17.7 Thou/mm3 (1.8-7.7); Neutrophils % (Auto) 79 % (37-80); Nucleated Red Blood Cell # 0.19 Thou/mm3 (0.00-0.00); Nucleated Red Blood Cell % 1 /100 WBC (0); Platelet Count 499 Thou/mm3 (140-440); RDW Standard Deviation 52.4 fL (36.4-46.3); Red Blood Count 2.32 Miln/mm3 (4.00-5.20); White Blood Count 22.5 Thou/mm3 (3.6-11.0)
[2025-03-18 05:29] LABS: Hemoglobin 7.4 g/dL (12.0-16.0)
[2025-03-18] MEDS: HEPARIN SOD INJ 5000 UNIT/ML VIAL SC ×3 (05:29→21:46)
[2025-03-18] MEDS: LEVOTHYROXINE SODIUM 25 MCG TABLET 75 MCG PO (05:29)
[2025-03-18] MEDS: CEFEPIME INJ 2 GM in SODIUM CHLORIDE 0.9% (Popper) 50 ML IV ×3 (05:30→21:47)
[2025-03-18] MEDS: NYSTATIN SUSP 5 ML UDC PO (05:31)
[2025-03-18 06:14] LABS: Alanine Aminotransferase 17 U/L (10-49); Albumin/Globulin Ratio 1.4 (1.2-2.2); Alkaline Phosphatase 66 U/L (46-116); Anion Gap 7 (7-16); Aspartate Amino Transferase 21 U/L (0-34); BUN/Creatinine Ratio 49 Ratio (12-20); Bilirubin,Total 0.4 mg/dL (0.3-1.2); Blood Urea Nitrogen 34 mg/dL (9-23); Calcium (Corrected) 8.8 mg/dL (8.5-10.1); Carbon Dioxide 22.8 mMol/L (20.0-31.0); Chloride 105 mMol/L (98-107); Creatinine (Component) 0.7 mg/dL (0.6-1.3); Estimated Creatinine Clearance 54.9 mL/min (>60); Globulin 2.1 gm/dL (2.3-3.5); Glucose 170 mg/dL (74-106); Magnesium 2.1 mg/dL (1.6-2.6); Osmolality,Calculated 281 (275-295); Phosphorous 2.6 mg/dL (2.4-5.1); Sodium 135 mMol/L (136-145); Total Protein 5.1 gm/dL (5.7-8.2); eGFR > 60 See Note
[2025-03-18] MEDS: INSULIN LISPRO (AdmeLOG) 1 UNIT/0.01 ML UNIT SC ×3 (07:29→17:32)
[2025-03-18] MEDS: ACETAMINOPHEN 325 MG TABLET 650 MG PO ×2 (07:33→23:30)
[2025-03-18] MEDS: amLODIPine BESYLATE 5 MG TABLET PO (08:35)
[2025-03-18] MEDS: ESCITALOPRAM OXALATE 10 MG TABLET PO (08:37)
[2025-03-18] MEDS: INSULIN GLARGINE (Lantus) 5 UNIT/0.05 ML (PER 5 UNITS) 12 UNIT SC (08:52)
--- NOTE | 2025-03-18 09:50 | XR_ITS ---
Examination: MRI right ankle, without contrast Date and time of exam: March 18, 2025 1002 hrs. Indications: Nonhealing wound lateral right ankle (2023 Technique: Multiple axial sagittal and coronal images of the right ankle have been obtained with the Siemens high-resolution 1.5 Domi MRI scanner. Images obtained include T2-weighted fat-suppressed sagittal sections, TR 3500, TE 46, T2 weighted coronal fat suppressed images, TR 3050, TE 84, T2-weighted transverse fat suppressed images, TR 3260, TE 63, proton density transverse images, TR 4720 TE 46, and T1 weighted coronal images, TR 560, TE 13. 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
--- NOTE | 2025-03-18 15:02 | ESPR_ITS ---
Documentation for date of: 03/18/25 Subjective Subjective Interval history: Patient examined at bedside, complains of weakness. Decreased appetite. Lower extremity foot pain. Vitals stable, Blood sugar well controlled. Leukocytosis 22, potassium 5.0. Will continue to hold spironolactone and olmesartan due to patient's hyperkalemia at admission. Blood cultures from 03/16 returned positive GPC 01/01--Continuing vancomycin and cefepime. Repeat blood cultures and echo pending. Outpatient ACTH and cortisol levels have been negative. MRI right ankle negative for osteomyelitis. Patient's daughter was at bedside and counseled on importance of tighter blood sugar control after discharge. Exam Vital Signs Temp Pulse Resp BP Pulse Ox O2 Del Method 97.5 F 94 19 130/56 L 95 Room Air 03/18/25 12:00 03/18/25 12:00 03/18/25 12:00 03/18/25 12:00 03/18/25 12:00 03/18/25 12:00 Narrative Exam General: Elderly female, Awake, ill-appearing HEENT: Normocephalic, atraumatic, mucous membranes dry. Heart: Regular rate and rhythm, no murmurs. Lungs: Clear to auscultation with no wheezing or crackles. Abdomen: Soft, nondistended, nontender, positive bowel sounds. ?No guarding or rebound tenderness. Neurologic: Alert, no gross neurological deficit, and patient able to move all 4 extremities. Extremities: Pitting 2+ edema of the feet, no ankle edema. Right foot is covered in bandage, right maleolous ulcer stage 2-3 Skin: sacral pressure ulcer stage 2, 3-4 inches long Objective Labs 03/18/25 04:20 03/18/25 04:20 Labs: Laboratory Results - last 24 hr 03/18/25 04:20 WBC 22.5 H RBC 2.32 L Hgb 7.4 L Hct 23.4 L MCV 101 H MCH 31.9 MCHC 31.6 RDW Std Deviation 52.4 H Plt Count 499 H Neut % (Auto) 79 Lymph % (Auto) 14 [place] % (Auto) 5 Eos % (Auto) 0 Baso % (Auto) 0 Neut # (Auto) 17.7 H Lymph # (Auto) 3.1 [place] # (Auto) 1.0 H Eos # (Auto) 0.0 Baso # (Auto) 0.1 Immature Gran # (Auto) 0.57 H Absolute Nucleated RBC 0.19 H Immature Gran % 3 H Nucleated RBC % 1 H Sodium 135 L Potassium 5.0 Chloride 105 Carbon Dioxide 22.8 Anion Gap 7 BUN 34 H Creatinine 0.7 Estim Creat Clear Calc 54.9 L eGFR > 60 BUN/Creatinine Ratio 49 H Glucose 170 H D Calculated Osmolality 281 Calcium 8.0 L Corrected Calcium 8.8 Phosphorus 2.6 Magnesium 2.1 Total Bilirubin 0.4 AST 21 ALT 17 Alkaline Phosphatase 66 Total Protein 5.1 L Albumin 3.0 L Globulin 2.1 L Albumin/Globulin Ratio 1.4 ABG Interpretation ABG results: 03/17/25 00:53 ABG pH 7.44 ABG pCO2 36 ABG pO2 81 L ABG HCO3 24 ABG O2 Saturation 95 ABG Base Excess 0 Quality Measures Quality Measures VTE prophylaxis Advance care planning discussed with:: patient Assessment & Plan Assessment Current Active Medications: Generic Name Dose Route Start Last Admin Trade Name Freq PRN Reason Stop Dose Admin Acetaminophen 650 mg 03/17/25 00:05 03/18/25 07:33 Acetaminophen 325 Mg Tablet PO 04/16/25 00:04 650 mg Q6H PRN Administration Fever >100.3 or pain 1-3 Amlodipine Besylate 5 mg 03/17/25 09:00 03/18/25 08:35 Amlodipine Besylate 5 Mg Tablet PO 04/16/25 08:59 5 mg QDAY JESSICA Administration Atorvastatin Calcium 20 mg 03/17/25 21:00 03/17/25 20:15 Atorvastatin Calcium 20 Mg Tablet PO 04/16/25 20:59 20 mg HS JESSICA Administration Dextrose 25 ml 03/17/25 00:11 Dextrose 50%-Water Inj 50 Ml Syringe IV 04/16/25 00:10 Q15MIN PRN BG 50-70 responsive npo pt Dextrose 50 ml 03/17/25 00:11 Dextrose 50%-Water Inj 50 Ml Syringe IV 04/16/25 00:10 Q15MIN PRN BG <50 OR BG <70 & pt unresponsive Escitalopram Oxalate 10 mg 03/17/25 09:00 03/18/25 08:37 Escitalopram Oxalate 10 Mg Tablet PO 04/16/25 08:59 10 mg QDAY JESSICA Administration Glucagon 1 mg 03/17/25 00:11 Glucagon Inj 1 Mg Vial IM Q15MIN PRN BG <70, and no IV access Heparin Sodium (Porcine) 5,000 unit 03/17/25 06:00 03/18/25 13:58 Heparin Sod Inj 5000 Unit/Ml Vial SC 03/31/25 05:59 5,000 unit Q8HR JESSICA Administration Hydralazine HCl 10 mg 03/17/25 00:13 Hydralazine Inj 20 Mg/Ml Vial IV 04/16/25 01:59 Q2HR PRN SBP>180 Hydromorphone HCl 0.25 mg 03/17/25 11:00 03/18/25 05:25 Hydromorphone Inj 2 Mg/Ml Vial IVP 03/22/25 10:59 0.25 mg Q4HR PRN Administration PAIN SCALE 4-10(Mod-Sev Cefepime HCl 2 gm/ Sodium 50 mls @ 100 mls/hr 03/17/25 06:15 03/18/25 13:57 Chloride IV 03/24/25 06:14 100 mls/hr Q8HR JESSICA Administration Insulin Glargine 12 unit 03/17/25 09:00 03/18/25 08:52 Insulin Glargine (Lantus) 5 Unit/0.05 Ml (Per 5 Units) SC 04/16/25 08:59 12 unit QDAY JESSICA Administration Insulin Human Lispro 0 unit 03/17/25 07:30 03/18/25 11:30 Insulin Lispro (Admelog) 1 Unit/0.01 Ml Unit SC 04/16/25 07:29 2 unit AC JESSICA Administration Protocol Ketorolac Tromethamine 15 mg 03/17/25 00:09 03/18/25 14:03 Ketorolac Inj 30 Mg/Ml Vial IVP 03/22/25 00:08 15 mg Q6HR PRN Administration PAIN SCALE 4-10(Mod-Sev Levothyroxine Sodium 75 mcg 03/17/25 06:00 03/18/25 05:29 Levothyroxine Sodium 25 Mcg Tablet PO 04/16/25 05:59 75 mcg ACBR JESSICA Administration Ondansetron HCl 4 mg 03/17/25 00:20 Ondansetron Inj 2 Mg/Ml Inj 2 Ml IV 04/16/25 00:19 Q6HR PRN NAUSEA OR VOMITING Protocol Sennosides 1 tab 03/17/25 00:05 Senna Tablet PO 04/16/25 00:04 QDAY PRN constipation Protocol Plan Katharine Goldberg is a 74-year-old female with a previous medical history of hypertension, hypothyroidism, insulin-dependent diabetes mellitus, osteoporosis, hemorroids, lateral ankle chronic wound who was brought to the ED due to general weakness, nausea and vomiting. Patient is going to be admitted for soft tissue infection work up and management. #GPC bacteremia #Soft tissue infection #Right lateral malleolus ulcer #Diabetic foot ulcer qSOFA score is 0. Patient is generally weak and has 2 potential sources of infection - pressure sores and chronic ankle wound. She has also chronic leukocytosis and has received multiple courses of antibiotics before. She also underwent course of hyperbaric oxygenation for the ulcer treatment without effect and underwent work-up for medication induced [place] syndrome, according to chart review, ACTH 9, total cortisol <1 in 01/2025, work-up for C3-C4c complement deficiency, which was negative. Hepatitis panel was negative, cryglobulin was negative. She also underwent peripheral angiogram in 2023 which was negative for arterial stenosis/ arterial disease. Ankle xray No jace cortical bone destruction. MRI negative for osteomyelitis. MRSA nares negative. Plan: -Blood cultures from 03/16 returned positive GPC 01/01 continue: - vancomycin 03/17/25- - cefepime 2g q8hr 03/17/25- - wound care -echo pending - repeat blood cultures pending -IV dilaudid 0.25mg q4hr PRN #Insulin dependent Type 2 diabetes mellitus-poorly controlled Patient is on Tresiba 12 U qday with sliding scale insulin and metformin. A1c 7.9%. Plan: - Glargine 12 units qday - Sliding scale insulin with fingerstick blood sugar checks - hypoglycemia protocol -Lyrica for neuropathic pain #Hypertension #History of valve disease Patient is following with Dr. Phelan. She has multiple blood pressure medication on board, including nicardipine. In the ED, her BP was ranging from 77/56 to the SBP in the 170s. Plan: - amlodipine 5 mg qday - hydralazine 10 mg IV prn q2hr if SBP>180 - consider consulting cardiology if BP is not controlled - home olmesartan and spironolactone on hold due hyperkalemia #Hyperkalemia-improving Most likely side effect of spironolactone and olmesartan. Plan: - spironolactone and olmesartan on hold - monitor daily CMP #History of depression Plan: - resumed home lexapro #Hypothyroidism Plan: - resumed home levothyroxine 75mcg #Anemia According to chart review, appears chronic, most likely in the setting of chronic disease. Plan: - FOBT - transfuse of Hgb<7 Health maintenance: FEN: cardiac, carbohydrate consistent DVT prophylaxis: heparin sc GI prophylaxis: none Dispo: IV antibiotics, MRI pending CODE STATUS: DNR (patient declined resuscitation in case of cardiac arrest, witnessed by the daughter and Dr. Aguilera) The patient's management plan was discussed with my attending physician Dr. Morin. Martha Johnson, PGY-1 Attending Provider Attestation/Addendum I have discussed and was present for the essential components of the history, physical examination, diagnosis, and treatment plan with the resident. I agree with the patient's care as documented by the resident and amended herein by me. Jose Morin, DO. Although this document has been carefully reviewed, there may still be some phonetic and other typographical errors. These errors are purely grammatical due to imperfections in the software program and should not be construed in any way to compromise the substance of the patient's medical care during this visit.
[2025-03-18] MEDS: ATORVASTATIN CALCIUM 20 MG TABLET PO (20:40)
[2025-03-19] VITALS (14 sets, daily range): BP systolic 115–169; BP diastolic 43–76; PULSE 74–118; RESP 15–96; TEMP 36.1–36.8; O2SAT 92–100
[2025-03-19] MEDS: HEPARIN SOD INJ 5000 UNIT/ML VIAL SC ×2 (05:06→21:29)
[2025-03-19] MEDS: KETOROLAC INJ 30 MG/ML VIAL 15 MG IVP (05:08)
[2025-03-19] MEDS: SENNA TABLET 1 TAB PO (05:09)
[2025-03-19] MEDS: CEFEPIME INJ 2 GM in SODIUM CHLORIDE 0.9% (Popper) 50 ML IV ×3 (05:23→21:18)
[2025-03-19] MEDS: LEVOTHYROXINE SODIUM 25 MCG TABLET 75 MCG PO (05:25)
[2025-03-19 05:47] LABS: Basophils % (Auto) 0 % (0-2.5); Eosinophils % (Auto) 0 % (0-10); Hematocrit 20.8 % (36.0-46.0); Immature Granulocytes % (Auto) 3 % (0-0); Immature Granulocytes Auto 0.46 Thou/mm3 (0.00-0.00); Lymphocytes # (Auto) 2.3 Thou/mm3 (1.0-4.8); Lymphocytes % (Auto) 12 % (10-50); Mean Corpuscular HGB Conc 31.7 g/dl (31.0-37.0); Mean Corpuscular Volume 101 fL (80-100); Monocytes # (Auto) 0.7 Thou/mm3 (0.0-0.8); Monocytes % (Auto) 4 % (0-12); Neutrophils # (Auto) 15.1 Thou/mm3 (1.8-7.7); Neutrophils % (Auto) 81 % (37-80); Nucleated Red Blood Cell # 0.09 Thou/mm3 (0.00-0.00); Nucleated Red Blood Cell % 1 /100 WBC (0); Platelet Count 409 Thou/mm3 (140-440); RDW Standard Deviation 52.5 fL (36.4-46.3); Red Blood Count 2.06 Miln/mm3 (4.00-5.20); White Blood Count 18.6 Thou/mm3 (3.6-11.0)
[2025-03-19 06:03] LABS: Hemoglobin 6.6 g/dL (12.0-16.0)
--- NOTE | 2025-03-19 06:08 | PC.NURSE ---
Per forestry laborer, Hgb dropped to 6.6 and Hct dropped to 20.[address] Jackson was made aware. Patient to review patient's chart, no new orders obtained at this time.
[2025-03-19 06:41] LABS: Alanine Aminotransferase 17 U/L (10-49); Albumin, Serum 2.7 gm/dL (3.4-4.8); Albumin/Globulin Ratio 1.4 (1.2-2.2); Alkaline Phosphatase 67 U/L (46-116); Anion Gap 8 (7-16); Aspartate Amino Transferase 22 U/L (0-34); BUN/Creatinine Ratio 62 Ratio (12-20); Bilirubin,Total 0.3 mg/dL (0.3-1.2); Blood Urea Nitrogen 31 mg/dL (9-23); Carbon Dioxide 17.9 mMol/L (20.0-31.0); Chloride 105 mMol/L (98-107); Creatinine (Component) 0.5 mg/dL (0.6-1.3); Estimated Creatinine Clearance 76.9 mL/min (>60); Glucose 208 mg/dL (74-106); Magnesium 1.9 mg/dL (1.6-2.6); Osmolality,Calculated 275 (275-295); Phosphorous 2.7 mg/dL (2.4-5.1); Potassium 4.6 mMol/L (3.4-5.1); Sodium 131 mMol/L (136-145); Total Protein 4.7 gm/dL (5.7-8.2); eGFR > 60 See Note
[2025-03-19] MEDS: INSULIN LISPRO (AdmeLOG) 1 UNIT/0.01 ML UNIT SC ×3 (07:49→17:14)
[2025-03-19] MEDS: ESCITALOPRAM OXALATE 10 MG TABLET PO (08:16)
[2025-03-19] MEDS: amLODIPine BESYLATE 5 MG TABLET PO (08:16)
[2025-03-19] MEDS: INSULIN GLARGINE (Lantus) 5 UNIT/0.05 ML (PER 5 UNITS) 12 UNIT SC (08:20)
[2025-03-19 09:58] LABS: Iron 8 mcg/dL (50-170); Percent Iron Saturation 4 % (20-55); Total Iron Binding Capacity 165 mcg/dL (250-425); Unsaturated Iron Binding 157 (225-295)
[2025-03-19 11:16] LABS: Base Excess, Venous -6 (-3-3); O2 Saturation, Venous 74 % (96-97); PCO2, Venous 32 mmHg (36-56); PO2, Venous 41 mmHg (15-58); pH, Venous 7.36 (7.33-7.66)
--- NOTE | 2025-03-19 15:55 | PD.RESPRO ---
Documentation for date of: 03/19/25 Subjective Subjective Interval history: Patient examined at bedside, complains of weakness. Decreased appetite. Lower extremity foot pain. Vitals stable, Blood sugar well controlled. Leukocytosis 22, potassium 5.0. Will continue to hold spironolactone and olmesartan due to patient's hyperkalemia at admission. Blood cultures from 03/16 returned positive GPC 01/01--Continuing vancomycin and cefepime. Repeat blood cultures and echo pending. Outpatient ACTH and cortisol levels have been negative. MRI right ankle negative for osteomyelitis. Patient's daughter was at bedside and counseled on importance of tighter blood sugar control after discharge and potential follow-up with endocrinology. Patient family requested for possible transfer, explained to family at bedside that there is no emergent need for transfer, patient can follow-up outpatient with endocrinology and specialists as needed, family verbalized understanding. Exam Vital Signs Temp Pulse Resp BP Pulse Ox O2 Del Method 97 F 98 18 157/64 H 99 Room Air 03/19/25 13:10 03/19/25 13:10 03/19/25 13:10 03/19/25 13:10 03/19/25 13:10 03/19/25 12:00 Narrative Exam General: Elderly female, Awake, ill-appearing HEENT: Normocephalic, atraumatic, mucous membranes dry. Heart: Regular rate and rhythm, no murmurs. Lungs: Clear to auscultation with no wheezing or crackles. Abdomen: Soft, nondistended, nontender, positive bowel sounds. ?No guarding or rebound tenderness. Neurologic: Alert, no gross neurological deficit, and patient able to move all 4 extremities. Extremities: Pitting 2+ edema of the feet, no ankle edema. Right foot is covered in bandage, right maleolous ulcer stage 2-3 Skin: sacral pressure ulcer stage 2, 3-4 inches long Objective Labs 03/19/25 15:22 03/19/25 05:01 Labs: Laboratory Results - last 24 hr 03/19/25 03/19/25 03/19/25 05:01 06:56 08:24 WBC 18.6 H RBC 2.06 L Hgb 6.6 L* Hct 20.8 L* MCV 101 H MCH 32.0 MCHC 31.7 RDW Std Deviation 52.5 H Plt Count 409 D Neut % (Auto) 81 H Lymph % (Auto) 12 [place] % (Auto) 4 Eos % (Auto) 0 Baso % (Auto) 0 Neut # (Auto) 15.1 H Lymph # (Auto) 2.3 [place] # (Auto) 0.7 Eos # (Auto) 0.0 Baso # (Auto) 0.0 Immature Gran # (Auto) 0.46 H Absolute Nucleated RBC 0.09 H Immature Gran % 3 H Nucleated RBC % 1 H VBG pH VBG pCO2 VBG pO2 VBG O2 Sat (Sandie) VBG Base Excess Sodium 131 L Potassium 4.6 Chloride 105 Carbon Dioxide 17.9 L Anion Gap 8 BUN 31 H Creatinine 0.5 L Estim Creat Clear Calc 76.9 eGFR > 60 BUN/Creatinine Ratio 62 H Glucose 208 H Calculated Osmolality 275 Calcium 8.0 L Corrected Calcium 9.0 Phosphorus 2.7 Magnesium 1.9 Iron 8 L TIBC 165 L Iron Saturation 4 L Unsat Iron Binding 157 L Total Bilirubin 0.3 AST 22 ALT 17 Alkaline Phosphatase 67 Total Protein 4.7 L Albumin 2.7 L Globulin 2.0 L Albumin/Globulin Ratio 1.4 Blood Type A Positive Antibody Screen NEGATIVE Crossmatch See Detail Blood Bank Wristband ID Yes 03/19/25 11:07 WBC RBC Hgb Hct MCV MCH MCHC RDW Std Deviation Plt Count Neut % (Auto) Lymph % (Auto) [place] % (Auto) Eos % (Auto) Baso % (Auto) Neut # (Auto) Lymph # (Auto) [place] # (Auto) Eos # (Auto) Baso # (Auto) Immature Gran # (Auto) Absolute Nucleated RBC Immature Gran % Nucleated RBC % VBG pH 7.36 VBG pCO2 32 L VBG pO2 41 VBG O2 Sat (Sandie) 74 L VBG Base Excess -6 L Sodium Potassium Chloride Carbon Dioxide Anion Gap BUN Creatinine Estim Creat Clear Calc eGFR BUN/Creatinine Ratio Glucose Calculated Osmolality Calcium Corrected Calcium Phosphorus Magnesium Iron TIBC Iron Saturation Unsat Iron Binding Total Bilirubin AST ALT Alkaline Phosphatase Total Protein Albumin Globulin Albumin/Globulin Ratio Blood Type Antibody Screen Crossmatch Blood Bank Wristband ID ABG Interpretation ABG results: 03/17/25 03/19/25 00:53 11:07 ABG pH 7.44 ABG pCO2 36 ABG pO2 81 L ABG HCO3 24 ABG O2 Saturation 95 ABG Base Excess 0 VBG pH 7.36 VBG pCO2 32 L VBG pO2 41 VBG Base Excess -6 L Quality Measures Quality Measures VTE prophylaxis Advance care planning discussed with:: patient Assessment & Plan Assessment Current Active Medications: Generic Name Dose Route Start Last Admin Trade Name Freq PRN Reason Stop Dose Admin Acetaminophen 650 mg 03/17/25 00:05 03/18/25 23:30 Acetaminophen 325 Mg Tablet PO 04/16/25 00:04 650 mg Q6H PRN Administration Fever >100.3 or pain 1-3 Amlodipine Besylate 5 mg 03/17/25 09:00 03/19/25 08:16 Amlodipine Besylate 5 Mg Tablet PO 04/16/25 08:59 5 mg QDAY JESSICA Administration Atorvastatin Calcium 20 mg 03/17/25 21:00 03/18/25 20:40 Atorvastatin Calcium 20 Mg Tablet PO 04/16/25 20:59 20 mg HS JESSICA Administration Dextrose 25 ml 03/17/25 00:11 Dextrose 50%-Water Inj 50 Ml Syringe IV 04/16/25 00:10 Q15MIN PRN BG 50-70 responsive npo pt Dextrose 50 ml 03/17/25 00:11 Dextrose 50%-Water Inj 50 Ml Syringe IV 04/16/25 00:10 Q15MIN PRN BG <50 OR BG <70 & pt unresponsive Escitalopram Oxalate 10 mg 03/17/25 09:00 03/19/25 08:16 Escitalopram Oxalate 10 Mg Tablet PO 04/16/25 08:59 10 mg QDAY JESSICA Administration Glucagon 1 mg 03/17/25 00:11 Glucagon Inj 1 Mg Vial IM Q15MIN PRN BG <70, and no IV access Heparin Sodium (Porcine) 5,000 unit 03/19/25 21:00 Heparin Sod Inj 5000 Unit/Ml Vial SC 04/02/25 20:59 Q12HR JESSICA Hydralazine HCl 10 mg 03/17/25 00:13 Hydralazine Inj 20 Mg/Ml Vial IV 04/16/25 01:59 Q2HR PRN SBP>180 Hydromorphone HCl 0.25 mg 03/17/25 11:00 03/18/25 16:26 Hydromorphone Inj 2 Mg/Ml Vial IVP 03/22/25 10:59 0.25 mg Q4HR PRN Administration PAIN SCALE 4-10(Mod-Sev Cefepime HCl 2 gm/ Sodium 50 mls @ 100 mls/hr 03/17/25 06:15 03/19/25 14:11 Chloride IV 03/24/25 06:14 100 mls/hr Q8HR JESSICA Administration Insulin Glargine 12 unit 03/17/25 09:00 03/19/25 08:20 Insulin Glargine (Lantus) 5 Unit/0.05 Ml (Per 5 Units) SC 04/16/25 08:59 12 unit QDAY JESSICA Administration Insulin Human Lispro 0 unit 03/17/25 07:30 03/19/25 11:53 Insulin Lispro (Admelog) 1 Unit/0.01 Ml Unit SC 04/16/25 07:29 2 unit AC JESSICA Administration Protocol Levothyroxine Sodium 75 mcg 03/17/25 06:00 03/19/25 05:25 Levothyroxine Sodium 25 Mcg Tablet PO 04/16/25 05:59 75 mcg ACBR JESSICA Administration Ondansetron HCl 4 mg 03/17/25 00:20 Ondansetron Inj 2 Mg/Ml Inj 2 Ml IV 04/16/25 00:19 Q6HR PRN NAUSEA OR VOMITING Protocol Sennosides 1 tab 03/17/25 00:05 03/19/25 05:09 Senna Tablet PO 04/16/25 00:04 1 tab QDAY PRN Administration constipation Protocol Plan Katharine Goldberg is a 74-year-old female with a previous medical history of hypertension, hypothyroidism, insulin-dependent diabetes mellitus, osteoporosis, hemorroids, lateral ankle chronic wound who was brought to the ED due to general weakness, nausea and vomiting. Patient is going to be admitted for soft tissue infection work up and management. #GPC bacteremia #Soft tissue infection #Right lateral malleolus ulcer #Diabetic foot ulcer qSOFA score is 0. Patient is generally weak and has 2 potential sources of infection - pressure sores and chronic ankle wound. She has also chronic leukocytosis and has received multiple courses of antibiotics before. She also underwent course of hyperbaric oxygenation for the ulcer treatment without effect and underwent work-up for medication induced [place] syndrome, according to chart review, ACTH 9, total cortisol <1 in 01/2025, work-up for C3-C4c complement deficiency, which was negative. Hepatitis panel was negative, cryglobulin was negative. She also underwent peripheral angiogram in 2023 which was negative for arterial stenosis/ arterial disease. Ankle xray No jace cortical bone destruction. MRI negative for osteomyelitis. MRSA nares negative. Plan: -Blood cultures from 03/16 returned positive GPC 01/01 continue: - vancomycin 03/17/25- & cefepime 2g q8hr 03/17/25- - wound care - echo pending - repeat blood cultures pending - IV dilaudid 0.25mg q4hr PRN #Insulin dependent Type 2 diabetes mellitus-poorly controlled Patient is on Tresiba 12 U qday with sliding scale insulin and metformin. A1c 7.9%. Plan: - Glargine 12 units qday - Sliding scale insulin with fingerstick blood sugar checks - hypoglycemia protocol - Lyrica for neuropathic pain #Hypertension #History of valve disease Patient is following with Dr. Phelan. She has multiple blood pressure medication on board, including nicardipine. In the ED, her BP was ranging from 77/56 to the SBP in the 170s. Plan: - amlodipine 5 mg qday - hydralazine 10 mg IV prn q2hr if SBP>180 - consider consulting cardiology if BP is not controlled - home olmesartan and spironolactone on hold due hyperkalemia #Hyperkalemia-improving Most likely side effect of spironolactone and olmesartan. Plan: - spironolactone and olmesartan on hold - monitor daily CMP #History of depression Plan: - resumed home lexapro #Hypothyroidism Plan: - resumed home levothyroxine 75mcg #Anemia #Iron deficiency Patient's hemoglobin 6.6, possible etiology of multifactorial anemia, does have significant iron deficiency According to chart review, appears chronic, most likely in the setting of chronic disease. Iron panel shows iron 8 mcg/dL, TIBC 165, iron saturation 4% Patient denies any blood in stool Plan: - FOBT pending - transfuse of Hgb<7 - Will consider discharging on iron tablets Health maintenance: FEN: cardiac, carbohydrate consistent DVT prophylaxis: heparin sc GI prophylaxis: none Dispo: IV antibiotics, MRI pending CODE STATUS: DNR (patient declined resuscitation in case of cardiac arrest, witnessed by the daughter and Dr. Aguilera) The patient's management plan was discussed with my attending physician Dr. Morin. Alexander Dodd, PGY-1 Attending Provider Attestation/Addendum I have discussed and was present for the essential components of the history, physical examination, diagnosis, and treatment plan with the resident. I agree with the patient's care as documented by the resident and amended herein by me. Jose Morin DO. Patient seen and evaluated this AM. No acute events overnight, patient slightly tachycardic pulse 115, BP 130/43 mmHg, afebrile overnight. Significant labs including downtrending WBC 18.6, hemoglobin low at 6.6, no obvious signs of bleeding, 1 unit PRBC ordered by night team, platelets 409. CMP significant for metabolic acidosis with a bicarb of 18. BUN and creatinine within normal limits. Blood cultures thus far demonstrating GPC x 2, speciation pending, repeat cultures have also been drawn which are also pending. FOBT has been ordered, echo is pending, VBG ordered today demonstrates a pH of 7.36 and a PCO2 of 32. I am holding the BP meds for now, will order a posttransfusion H&H, will continue the patient on vancomycin and cefepime and likely consult GI when they are available Thursday. Will continue to monitor closely, will keep the family updated. Wound care on board Although this document has been carefully reviewed, there may still be some phonetic and other typographical errors. These errors are purely grammatical due to imperfections in the software program and should not be construed in any way to compromise the substance of the patient's medical care during this visit.
[2025-03-19 16:04] LABS: Hematocrit 29.7 % (36.0-46.0); Hemoglobin 9.8 g/dL (12.0-16.0)
[2025-03-19] MEDS: ATORVASTATIN CALCIUM 20 MG TABLET PO (21:21)
[2025-03-20] VITALS (11 sets, daily range): BP systolic 128–153; BP diastolic 63–84; PULSE 93–114; RESP 18–98; TEMP 36.2–36.8; O2SAT 94–99; BMI 21.0; BMI 12.0
[2025-03-20] MEDS: CEFEPIME INJ 2 GM in SODIUM CHLORIDE 0.9% (Popper) 50 ML IV ×3 (05:43→21:59)
[2025-03-20] MEDS: LEVOTHYROXINE SODIUM 25 MCG TABLET 75 MCG PO (05:44)
[2025-03-20 06:23] LABS: Basophils # (Auto) 0.1 Thou/mm3 (0.0-0.2); Basophils % (Auto) 0 % (0-2.5); Eosinophils % (Auto) 0 % (0-10); Hematocrit 28.5 % (36.0-46.0); Hemoglobin 9.6 g/dL (12.0-16.0); Immature Granulocytes % (Auto) 2 % (0-0); Immature Granulocytes Auto 0.34 Thou/mm3 (0.00-0.00); Lymphocytes # (Auto) 1.6 Thou/mm3 (1.0-4.8); Lymphocytes % (Auto) 10 % (10-50); Mean Corpuscular HGB Conc 33.7 g/dl (31.0-37.0); Mean Corpuscular Hemoglobin 30.9 pg (25.0-35.0); Mean Corpuscular Volume 92 fL (80-100); Monocytes # (Auto) 0.8 Thou/mm3 (0.0-0.8); Monocytes % (Auto) 5 % (0-12); Neutrophils % (Auto) 82 % (37-80); Nucleated Red Blood Cell # 0.05 Thou/mm3 (0.00-0.00); Nucleated Red Blood Cell % 0 /100 WBC (0); Platelet Count 388 Thou/mm3 (140-440); Red Blood Count 3.11 Miln/mm3 (4.00-5.20); White Blood Count 15.8 Thou/mm3 (3.6-11.0)
[2025-03-20 06:57] LABS: Alanine Aminotransferase 19 U/L (10-49); Albumin/Globulin Ratio 1.4 (1.2-2.2); Alkaline Phosphatase 78 U/L (46-116); Anion Gap 12 (7-16); Aspartate Amino Transferase 25 U/L (0-34); BUN/Creatinine Ratio 35 Ratio (12-20); Bilirubin,Total 0.5 mg/dL (0.3-1.2); Blood Urea Nitrogen 14 mg/dL (9-23); Calcium 8.1 mg/dL (8.3-10.6); Calcium (Corrected) 8.9 mg/dL (8.5-10.1); Carbon Dioxide 17.9 mMol/L (20.0-31.0); Chloride 100 mMol/L (98-107); Creatinine (Component) 0.4 mg/dL (0.6-1.3); Estimated Creatinine Clearance 96.1 mL/min (>60); Globulin 2.2 gm/dL (2.3-3.5); Glucose 142 mg/dL (74-106); Magnesium 1.4 mg/dL (1.6-2.6); Osmolality,Calculated 263 (275-295); Phosphorous 1.7 mg/dL (2.4-5.1); Potassium 3.6 mMol/L (3.4-5.1); Sodium 130 mMol/L (136-145); Total Protein 5.2 gm/dL (5.7-8.2); eGFR > 60 See Note
[2025-03-20] MEDS: POLYETHYLENE GLYCOL 17 GM PACKET 34 GM PO (08:04)
[2025-03-20] MEDS: amLODIPine BESYLATE 5 MG TABLET PO (08:05)
[2025-03-20] MEDS: HEPARIN SOD INJ 5000 UNIT/ML VIAL SC ×2 (08:05→21:59)
[2025-03-20] MEDS: HYDROmorphone INJ 2 MG/ML VIAL 0.25 MG IVP ×3 (08:05→17:30)
[2025-03-20] MEDS: SENNA TABLET 2 TAB PO (08:06)
[2025-03-20] MEDS: ESCITALOPRAM OXALATE 10 MG TABLET PO (08:06)
[2025-03-20] MEDS: INSULIN GLARGINE (Lantus) 5 UNIT/0.05 ML (PER 5 UNITS) 12 UNIT SC (08:06)
[2025-03-20] MEDS: Magnesium Sulfate 2 GM Ivpb 2 GM/50 ML BAG IV (09:53)
[2025-03-20] MEDS: VANCOMYCIN/NS 750 MG IVPB 750 MG/150 ML BAG 120 MG IV ×3 (09:53→22:00)
[2025-03-20] MEDS: NAPH,KPH MBDB 1 PACKET (1.5 GM) PO (09:53)
[2025-03-20] MEDS: INSULIN LISPRO (AdmeLOG) 1 UNIT/0.01 ML UNIT SC ×2 (11:32→16:53)
--- NOTE | 2025-03-20 11:32 | PC.SS ---
Follow up note: On IV antibiotic. Blood cultures are pending. Pt is possible d/c to SNF.
[2025-03-20] MEDS: SODIUM BICARBONATE 650 MG TABLET 325 MG PO (15:20)
--- NOTE | 2025-03-20 18:19 | ESPR_ITS ---
<Statement entered by Chuckie Santana MD - 03/21/25 08:04> I discussed with and supervised the social media intern physician involved in the care of this patient. Patient assessment and plan was discussed with entire medicine team, including my attending. I agree with the assessment and plan as documented by social media intern doctor. Patient care was discussed with my attending physician Dr. Mikel Santana, PGY-2 Documentation for date of: 03/20/25 Subjective Subjective Interval history: Patient examined at bedside, complains of weakness. Decreased appetite. Lower extremity foot pain. Vitals stable, Blood sugar well controlled. WBC 15, potassium 3.6. CMP significant for metabolic acidosis with a bicarb of 17. Patient started on oral bicarb, repleated magnesium and phosphate. Will continue to hold spironolactone and olmesartan due to patient's hyperkalemia at admission. Blood cultures from 03/16 returned positive GPC 2/--Continuing vancomycin and cefepime. 03/18 Repeat blood cultures growing GPC. Echo is pending. Exam Vital Signs Temp Pulse Resp BP Pulse Ox O2 Del Method 98.3 F 98 20 150/65 H 98 Room Air 03/20/25 11:14 03/20/25 16:00 03/20/25 11:14 03/20/25 11:14 03/20/25 11:14 03/20/25 04:00 Narrative Exam General: Elderly female, Awake, ill-appearing HEENT: Normocephalic, atraumatic, mucous membranes dry. Heart: Regular rate and rhythm, no murmurs. Lungs: Clear to auscultation with no wheezing or crackles. Abdomen: Soft, nondistended, nontender, positive bowel sounds. ?No guarding or rebound tenderness. Neurologic: Alert, no gross neurological deficit, and patient able to move all 4 extremities. Extremities: Pitting 2+ edema of the feet, no ankle edema. Right foot is covered in bandage, right maleolous ulcer stage 2-3 Skin: sacral pressure ulcer stage 2, 3-4 inches long Objective Labs 03/24/25 04:44 03/24/25 04:44 Labs: Laboratory Results - last 24 hr 03/20/25 04:55 WBC 15.8 H RBC 3.11 L Hgb 9.6 L Hct 28.5 L MCV 92 MCH 30.9 MCHC 33.7 RDW Std Deviation 62.0 H Plt Count 388 Neut % (Auto) 82 H Lymph % (Auto) 10 [place] % (Auto) 5 Eos % (Auto) 0 Baso % (Auto) 0 Neut # (Auto) 13.0 H Lymph # (Auto) 1.6 [place] # (Auto) 0.8 Eos # (Auto) 0.0 Baso # (Auto) 0.1 Immature Gran # (Auto) 0.34 H Absolute Nucleated RBC 0.05 H Immature Gran % 2 H Nucleated RBC % 0 Sodium 130 L Potassium 3.6 D Chloride 100 Carbon Dioxide 17.9 L Anion Gap 12 BUN 14 Creatinine 0.4 L Estim Creat Clear Calc 96.1 eGFR > 60 BUN/Creatinine Ratio 35 H Glucose 142 H D Calculated Osmolality 263 L Calcium 8.1 L Corrected Calcium 8.9 Phosphorus 1.7 L Magnesium 1.4 L Total Bilirubin 0.5 AST 25 ALT 19 Alkaline Phosphatase 78 Total Protein 5.2 L Albumin 3.0 L Globulin 2.2 L Albumin/Globulin Ratio 1.4 ABG Interpretation ABG results: 03/17/25 03/19/25 00:53 11:07 ABG pH 7.44 ABG pCO2 36 ABG pO2 81 L ABG HCO3 24 ABG O2 Saturation 95 ABG Base Excess 0 VBG pH 7.36 VBG pCO2 32 L VBG pO2 41 VBG Base Excess -6 L Quality Measures Quality Measures VTE prophylaxis Advance care planning discussed with:: patient Assessment & Plan Assessment Current Active Medications: Generic Name Dose Route Start Last Admin Trade Name Freq PRN Reason Stop Dose Admin Acetaminophen 650 mg 03/17/25 00:05 03/18/25 23:30 Acetaminophen 325 Mg Tablet PO 04/16/25 00:04 650 mg Q6H PRN Administration Fever >100.3 or pain 1-3 Amlodipine Besylate 5 mg 03/17/25 09:00 03/20/25 08:05 Amlodipine Besylate 5 Mg Tablet PO 04/16/25 08:59 5 mg QDAY JESSICA Administration Atorvastatin Calcium 20 mg 03/17/25 21:00 03/19/25 21:21 Atorvastatin Calcium 20 Mg Tablet PO 04/16/25 20:59 20 mg HS JESSICA Administration Dextrose 25 ml 03/17/25 00:11 Dextrose 50%-Water Inj 50 Ml Syringe IV 04/16/25 00:10 Q15MIN PRN BG 50-70 responsive npo pt Dextrose 50 ml 03/17/25 00:11 Dextrose 50%-Water Inj 50 Ml Syringe IV 04/16/25 00:10 Q15MIN PRN BG <50 OR BG <70 & pt unresponsive Escitalopram Oxalate 10 mg 03/17/25 09:00 03/20/25 08:06 Escitalopram Oxalate 10 Mg Tablet PO 04/16/25 08:59 10 mg QDAY JESSICA Administration Glucagon 1 mg 03/17/25 00:11 Glucagon Inj 1 Mg Vial IM Q15MIN PRN BG <70, and no IV access Heparin Sodium (Porcine) 5,000 unit 03/19/25 21:00 03/20/25 08:05 Heparin Sod Inj 5000 Unit/Ml Vial SC 04/02/25 20:59 5,000 unit Q12HR JESSICA Administration Hydralazine HCl 10 mg 03/17/25 00:13 Hydralazine Inj 20 Mg/Ml Vial IV 04/16/25 01:59 Q2HR PRN SBP>180 Hydromorphone HCl 0.25 mg 03/17/25 11:00 03/20/25 17:30 Hydromorphone Inj 2 Mg/Ml Vial IVP 03/22/25 10:59 0.25 mg Q4HR PRN Administration PAIN SCALE 4-10(Mod-Sev Cefepime HCl 2 gm/ Sodium 50 mls @ 100 mls/hr 03/17/25 06:15 03/20/25 14:15 Chloride IV 03/24/25 06:14 100 mls/hr Q8HR JESSICA Administration Vancomycin/Sodium Chloride 750 mg in 150 mls @ 120 mls/hr 03/20/25 09:30 03/20/25 14:47 Vancomycin/Ns 750 Mg Ivpb IV 03/27/25 09:29 120 mls/hr Q8HR JESSICA Administration Protocol Insulin Glargine 12 unit 03/17/25 09:00 03/20/25 08:06 Insulin Glargine (Lantus) 5 Unit/0.05 Ml (Per 5 Units) SC 04/16/25 08:59 12 unit QDAY JESSICA Administration Insulin Human Lispro 0 unit 03/17/25 07:30 03/20/25 16:53 Insulin Lispro (Admelog) 1 Unit/0.01 Ml Unit SC 04/16/25 07:29 3 unit AC JESSICA Administration Protocol Levothyroxine Sodium 75 mcg 03/17/25 06:00 03/20/25 05:44 Levothyroxine Sodium 25 Mcg Tablet PO 04/16/25 05:59 75 mcg ACBR JESSICA Administration Ondansetron HCl 4 mg 03/17/25 00:20 Ondansetron Inj 2 Mg/Ml Inj 2 Ml IV 04/16/25 00:19 Q6HR PRN NAUSEA OR VOMITING Protocol Pharmacy Consult 1 each 03/20/25 09:23 Vancomycin Pharmacy To Dose 1 Each Each IV 04/19/25 09:22 QDAY PRN CONSULT Polyethylene Glycol 17 gm 03/20/25 09:00 03/20/25 08:17 Polyethylene Glycol 17 Gm Packet PO 04/19/25 08:59 Not Given QDAY JESSICA Sennosides 2 tab 03/20/25 09:00 03/20/25 08:06 Senna Tablet PO 04/19/25 08:59 2 tab QDAY JESSICA Administration Protocol Sodium Bicarbonate 325 mg 03/20/25 14:00 03/20/25 15:20 Sodium Bicarbonate 650 Mg Tablet PO 04/19/25 13:59 325 mg DAILY JESSICA Administration Plan Katharine oGldberg is a 74-year-old female with a previous medical history of hypertension, hypothyroidism, insulin-dependent diabetes mellitus, osteoporosis, hemorroids, lateral ankle chronic wound who was brought to the ED due to general weakness, nausea and vomiting. Patient is going to be admitted for soft tissue infection work up and management. #GPC bacteremia #Soft tissue infection #Right lateral malleolus ulcer #Diabetic foot ulcer qSOFA score is 0. Patient is generally weak and has 2 potential sources of infection - pressure sores and chronic ankle wound. She has also chronic leukocytosis and has received multiple courses of antibiotics before. She also underwent course of hyperbaric oxygenation for the ulcer treatment without effect and underwent work-up for medication induced [place] syndrome, according to chart review, ACTH 9, total cortisol <1 in 01/2025, work-up for C3-C4c complement deficiency, which was negative. Hepatitis panel was negative, cryglobulin was negative. She also underwent peripheral angiogram in 2023 which was negative for arterial stenosis/ arterial disease. Ankle xray No jace cortical bone destruction. MRI negative for osteomyelitis. MRSA nares negative. Plan: -Blood cultures from 04/17 returned positive GPC 2/2 continue: - vancomycin 03/17/25- & cefepime 2g q8hr 03/17/25- - wound care - echo pending - repeat blood cultures pending - IV dilaudid 0.25mg q4hr PRN #Insulin dependent Type 2 diabetes mellitus-poorly controlled Patient is on Tresiba 12 U qday with sliding scale insulin and metformin. A1c 7.9%. Plan: - Glargine 12 units qday - Sliding scale insulin with fingerstick blood sugar checks - hypoglycemia protocol - Lyrica for neuropathic pain #Metabolic acidosis #Electrolyte abnormalities Unknown cause of metabolic acidosis. Less likely DKA blood sugars well- controlled. Most recent lactic acid within normal limits. No recent history of diarrhea. ?Start sodium bicarb 325 mg daily ? Replete electrolytes as needed #Hypertension #History of valve disease Patient is following with Dr. Phelan. She has multiple blood pressure medication on board, including nicardipine. In the ED, her BP was ranging from 77/56 to the SBP in the 170s. Plan: - amlodipine 5 mg qday - hydralazine 10 mg IV prn q2hr if SBP>180 - consider consulting cardiology if BP is not controlled - home olmesartan and spironolactone on hold due hyperkalemia #Hyperkalemia-resolved Most likely side effect of spironolactone and olmesartan. Plan: - spironolactone and olmesartan on hold - monitor daily CMP #History of depression Plan: - resumed home lexapro #Hypothyroidism Plan: - resumed home levothyroxine 75mcg #Anemia #Iron deficiency Patient's hemoglobin 6.6, possible etiology of multifactorial anemia, does have significant iron deficiency According to chart review, appears chronic, most likely in the setting of chronic disease. Iron panel shows iron 8 mcg/dL, TIBC 165, iron saturation 4% Patient denies any blood in stool Plan: - FOBT pending - transfuse of Hgb<7 - Will consider discharging on iron tablets Health maintenance: FEN: cardiac, carbohydrate consistent DVT prophylaxis: heparin sc GI prophylaxis: none Dispo: IV antibiotics, echo pending CODE STATUS: DNR (patient declined resuscitation in case of cardiac arrest, witnessed by the daughter and Dr. Aguilera) The patient's management plan was discussed with my attending physician Dr. Morin. Martha Johnson, PGY-1 Attending Provider Attestation/Addendum I have discussed and was present for the essential components of the history, physical examination, diagnosis, and treatment plan with the resident. I agree with the patient's care as documented by the resident and amended herein by me. Jose Morin DO. Although this document has been carefully reviewed, there may still be some phonetic and other typographical errors. These errors are purely grammatical due to imperfections in the software program and should not be construed in any way to compromise the substance of the patient's medical care during this visit.
[2025-03-20] MEDS: ATORVASTATIN CALCIUM 20 MG TABLET PO (21:59)
[2025-03-21] VITALS (9 sets, daily range): BP systolic 121–162; BP diastolic 59–90; PULSE 79–110; RESP 16–18; TEMP 36–37.3; O2SAT 94–98
[2025-03-21] MEDS: HYDROmorphone INJ 2 MG/ML VIAL 0.25 MG IVP ×5 (00:27→19:48)
--- NOTE | 2025-03-21 02:07 | PC.NURSE ---
pt complained of pain unrelieved by 0.25 mg of dilaudid, Dr. Caraballo was made aware. A one time order of 0.25 mg of dilaudid ordered for pt.
[2025-03-21] MEDS: CEFEPIME INJ 2 GM in SODIUM CHLORIDE 0.9% (Popper) 50 ML IV ×3 (05:14→22:56)
[2025-03-21] MEDS: LEVOTHYROXINE SODIUM 25 MCG TABLET 75 MCG PO (05:15)
[2025-03-21 06:54] LABS: Basophils # (Auto) 0.1 Thou/mm3 (0.0-0.2); Basophils % (Auto) 0 % (0-2.5); Eosinophils % (Auto) 0 % (0-10); Hematocrit 28.1 % (36.0-46.0); Hemoglobin 9.6 g/dL (12.0-16.0); Immature Granulocytes % (Auto) 3 % (0-0); Immature Granulocytes Auto 0.36 Thou/mm3 (0.00-0.00); Lymphocytes # (Auto) 2.2 Thou/mm3 (1.0-4.8); Lymphocytes % (Auto) 16 % (10-50); Mean Corpuscular HGB Conc 34.2 g/dl (31.0-37.0); Mean Corpuscular Hemoglobin 31.3 pg (25.0-35.0); Mean Corpuscular Volume 92 fL (80-100); Monocytes % (Auto) 7 % (0-12); Neutrophils # (Auto) 10.2 Thou/mm3 (1.8-7.7); Neutrophils % (Auto) 73 % (37-80); Nucleated Red Blood Cell # 0.03 Thou/mm3 (0.00-0.00); Nucleated Red Blood Cell % 0 /100 WBC (0); Platelet Count 336 Thou/mm3 (140-440); RDW Standard Deviation 60.8 fL (36.4-46.3); Red Blood Count 3.07 Miln/mm3 (4.00-5.20); White Blood Count 13.9 Thou/mm3 (3.6-11.0)
[2025-03-21 07:12] LABS: Alanine Aminotransferase 23 U/L (10-49); Albumin, Serum 3.1 gm/dL (3.4-4.8); Albumin/Globulin Ratio 1.3 (1.2-2.2); Alkaline Phosphatase 87 U/L (46-116); Anion Gap 6 (7-16); Aspartate Amino Transferase 25 U/L (0-34); BUN/Creatinine Ratio 28 Ratio (12-20); Bilirubin,Total 0.5 mg/dL (0.3-1.2); Blood Urea Nitrogen 11 mg/dL (9-23); Calcium 8.1 mg/dL (8.3-10.6); Calcium (Corrected) 8.8 mg/dL (8.5-10.1); Carbon Dioxide 21.7 mMol/L (20.0-31.0); Chloride 104 mMol/L (98-107); Creatinine (Component) 0.4 mg/dL (0.6-1.3); Estimated Creatinine Clearance 91.7 mL/min (>60); Globulin 2.4 gm/dL (2.3-3.5); Glucose 151 mg/dL (74-106); Magnesium 1.7 mg/dL (1.6-2.6); Osmolality,Calculated 266 (275-295); Sodium 132 mMol/L (136-145); Total Protein 5.5 gm/dL (5.7-8.2); Vancomycin,Trough 28.5 mcg/mL (5.0-10.0); eGFR > 60 See Note
--- NOTE | 2025-03-21 07:14 | PC.NURSE ---
vanco dose not given, vanco trough results pending, day shift RN was made aware.
[2025-03-21] MEDS: INSULIN LISPRO (AdmeLOG) 1 UNIT/0.01 ML UNIT SC (07:44)
[2025-03-21] MEDS: ACETAMINOPHEN 325 MG TABLET 650 MG PO (08:38)
[2025-03-21] MEDS: SODIUM BICARBONATE 650 MG TABLET 325 MG PO (08:38)
[2025-03-21] MEDS: POLYETHYLENE GLYCOL 17 GM PACKET PO (08:38)
[2025-03-21] MEDS: SENNA TABLET 2 TAB PO (08:38)
[2025-03-21] MEDS: INSULIN GLARGINE (Lantus) 5 UNIT/0.05 ML (PER 5 UNITS) 12 UNIT SC (08:39)
[2025-03-21] MEDS: amLODIPine BESYLATE 5 MG TABLET PO (08:39)
[2025-03-21] MEDS: HEPARIN SOD INJ 5000 UNIT/ML VIAL SC ×2 (08:39→23:15)
[2025-03-21] MEDS: ESCITALOPRAM OXALATE 10 MG TABLET PO (08:39)
--- NOTE | 2025-03-21 09:56 | PC.SS ---
Late note 03-20-25: SS met with pt and her son to discuss d/c options to home or SNF. Pt and son are now requesting pt to d/c to SNF for short term rehab. Pt and son aware her health insurance does not cover transportation to SNF. Per bedside nurse, Dea pt is on Lexapro for depression.
[2025-03-21] MEDS: Silvasorb Gel 45 ML TUBE TOP (12:29)
--- NOTE | 2025-03-21 15:15 | ESPR_ITS ---
<Statement entered by Chuckie Santana MD - 03/22/25 08:56> I discussed with and supervised the undergraduate intern physician involved in the care of this patient. Patient assessment and plan was discussed with entire medicine team, including my attending. I agree with the assessment and plan as documented by undergraduate intern doctor. Patient care was discussed with my attending physician Dr. Chano Santana, PGY-2 Documentation for date of: 03/21/25 Subjective Subjective Interval history: Patient examined at bedside, complains of weakness. Decreased appetite. Lower extremity foot pain. Vitals stable, Blood sugar well controlled. WBC 13.9, potassium 4.0. Metabolic acidosis improving with a bicarb of 21. Continue oral bicarb, repleated magnesium and phosphate. Will continue to hold spironolactone and olmesartan due to patient's hyperkalemia at admission. Blood cultures from 03/16 returned positive GPC 2/--Continuing vancomycin and cefepime. 03/18 Repeat blood cultures growing GPC. Echo is pending. Exam Vital Signs Temp Pulse Resp BP Pulse Ox O2 Del Method 99.1 F 88 18 121/68 98 Room Air 03/21/25 12:00 03/21/25 12:29 03/21/25 12:00 03/21/25 12:29 03/21/25 12:00 03/20/25 04:00 Narrative Exam General: Elderly female, Awake, ill-appearing HEENT: Normocephalic, atraumatic, mucous membranes dry. Heart: Regular rate and rhythm, no murmurs. Lungs: Clear to auscultation with no wheezing or crackles. Abdomen: Soft, nondistended, nontender, positive bowel sounds. ?No guarding or rebound tenderness. Neurologic: Alert, no gross neurological deficit, and patient able to move all 4 extremities. Extremities: Pitting 2+ edema of the feet, no ankle edema. Right foot is covered in bandage, right maleolous ulcer stage 2-3 Skin: sacral pressure ulcer stage 2, 3-4 inches long Objective Labs 03/21/25 04:58 03/21/25 04:58 Labs: Laboratory Results - last 24 hr 03/21/25 04:58 WBC 13.9 H RBC 3.07 L Hgb 9.6 L Hct 28.1 L MCV 92 MCH 31.3 MCHC 34.2 RDW Std Deviation 60.8 H Plt Count 336 D Neut % (Auto) 73 Lymph % (Auto) 16 Sawyer % (Auto) 7 Eos % (Auto) 0 Baso % (Auto) 0 Neut # (Auto) 10.2 H Lymph # (Auto) 2.2 Sawyer # (Auto) 1.0 H Eos # (Auto) 0.0 Baso # (Auto) 0.1 Immature Gran # (Auto) 0.36 H Absolute Nucleated RBC 0.03 H Immature Gran % 3 H Nucleated RBC % 0 Sodium 132 L Potassium 4.0 Chloride 104 Carbon Dioxide 21.7 Anion Gap 6 L BUN 11 Creatinine 0.4 L Estim Creat Clear Calc 91.7 eGFR > 60 BUN/Creatinine Ratio 28 H Glucose 151 H Calculated Osmolality 266 L Calcium 8.1 L Corrected Calcium 8.8 Magnesium 1.7 Total Bilirubin 0.5 AST 25 ALT 23 Alkaline Phosphatase 87 Total Protein 5.5 L Albumin 3.1 L Globulin 2.4 Albumin/Globulin Ratio 1.3 Vancomycin Trough 28.5 H* ABG Interpretation ABG results: 03/17/25 03/19/25 00:53 11:07 ABG pH 7.44 ABG pCO2 36 ABG pO2 81 L ABG HCO3 24 ABG O2 Saturation 95 ABG Base Excess 0 VBG pH 7.36 VBG pCO2 32 L VBG pO2 41 VBG Base Excess -6 L Quality Measures Quality Measures VTE prophylaxis Advance care planning discussed with:: patient Assessment & Plan Assessment Current Active Medications: Generic Name Dose Route Start Last Admin Trade Name Freq PRN Reason Stop Dose Admin Acetaminophen 650 mg 03/17/25 00:05 03/21/25 08:38 Acetaminophen 325 Mg Tablet PO 04/16/25 00:04 650 mg Q6H PRN Administration Fever >100.3 or pain 1-3 Amlodipine Besylate 10 mg 03/22/25 09:00 Amlodipine Besylate 5 Mg Tablet PO 04/21/25 08:59 QDAY JESSICA Atorvastatin Calcium 20 mg 03/17/25 21:00 03/20/25 21:59 Atorvastatin Calcium 20 Mg Tablet PO 04/16/25 20:59 20 mg HS JESSICA Administration Dextrose 25 ml 03/17/25 00:11 Dextrose 50%-Water Inj 50 Ml Syringe IV 04/16/25 00:10 Q15MIN PRN BG 50-70 responsive npo pt Dextrose 50 ml 03/17/25 00:11 Dextrose 50%-Water Inj 50 Ml Syringe IV 04/16/25 00:10 Q15MIN PRN BG <50 OR BG <70 & pt unresponsive Escitalopram Oxalate 10 mg 03/17/25 09:00 03/21/25 08:39 Escitalopram Oxalate 10 Mg Tablet PO 04/16/25 08:59 10 mg QDAY JESSICA Administration Glucagon 1 mg 03/17/25 00:11 Glucagon Inj 1 Mg Vial IM Q15MIN PRN BG <70, and no IV access Heparin Sodium (Porcine) 5,000 unit 03/19/25 21:00 03/21/25 08:39 Heparin Sod Inj 5000 Unit/Ml Vial SC 04/02/25 20:59 5,000 unit Q12HR JESSICA Administration Hydralazine HCl 10 mg 03/17/25 00:13 Hydralazine Inj 20 Mg/Ml Vial IV 04/16/25 01:59 Q2HR PRN SBP>180 Hydromorphone HCl 0.25 mg 03/17/25 11:00 03/21/25 14:05 Hydromorphone Inj 2 Mg/Ml Vial IVP 03/22/25 10:59 0.25 mg Q4HR PRN Administration PAIN SCALE 4-10(Mod-Sev Cefepime HCl 2 gm/ Sodium 50 mls @ 100 mls/hr 03/17/25 06:15 03/21/25 14:04 Chloride IV 03/24/25 06:14 100 mls/hr Q8HR JESSICA Administration Vancomycin/Sodium Chloride 750 mg in 150 mls @ 120 mls/hr 03/20/25 09:30 03/21/25 07:53 Vancomycin/Ns 750 Mg Ivpb IV 03/27/25 09:29 Not Given Q8HR [facility] Protocol Insulin Glargine 12 unit 03/17/25 09:00 03/21/25 08:39 Insulin Glargine (Lantus) 5 Unit/0.05 Ml (Per 5 Units) SC 04/16/25 08:59 12 unit QDAY JESSICA Administration Insulin Human Lispro 0 unit 03/17/25 07:30 03/21/25 11:24 Insulin Lispro (Admelog) 1 Unit/0.01 Ml Unit SC 04/16/25 07:29 Not Given AC [facility] Protocol Levothyroxine Sodium 75 mcg 03/17/25 06:00 03/21/25 05:15 Levothyroxine Sodium 25 Mcg Tablet PO 04/16/25 05:59 75 mcg ACBR JESSICA Administration Ondansetron HCl 4 mg 03/17/25 00:20 Ondansetron Inj 2 Mg/Ml Inj 2 Ml IV 04/16/25 00:19 Q6HR PRN NAUSEA OR VOMITING Protocol Pharmacy Consult 1 each 03/20/25 09:23 Vancomycin Pharmacy To Dose 1 Each Each IV 04/19/25 09:22 QDAY PRN CONSULT Polyethylene Glycol 17 gm 03/20/25 09:00 03/21/25 08:38 Polyethylene Glycol 17 Gm Packet PO 04/19/25 08:59 17 gm QDAY JESSICA Administration Sennosides 2 tab 03/20/25 09:00 03/21/25 08:38 Senna Tablet PO 04/19/25 08:59 2 tab QDAY JESSICA Administration Protocol Sodium Bicarbonate 325 mg 03/20/25 14:00 03/21/25 08:38 Sodium Bicarbonate 650 Mg Tablet PO 04/19/25 13:59 325 mg DAILY JESSICA Administration Plan Katharine Goldberg is a 74-year-old female with a previous medical history of hypertension, hypothyroidism, insulin-dependent diabetes mellitus, osteoporosis, hemorroids, lateral ankle chronic wound who was brought to the ED due to general weakness, nausea and vomiting. Patient is going to be admitted for soft tissue infection work up and management. #GPC bacteremia #Soft tissue infection #Right lateral malleolus ulcer #Diabetic foot ulcer qSOFA score is 0. Patient is generally weak and has 2 potential sources of infection - pressure sores and chronic ankle wound. She has also chronic leukocytosis and has received multiple courses of antibiotics before. She also underwent course of hyperbaric oxygenation for the ulcer treatment without effect and underwent work-up for medication induced [place] syndrome, according to chart review, ACTH 9, total cortisol <1 in 01/2025, work-up for C3-C4c complement deficiency, which was negative. Hepatitis panel was negative, cryglobulin was negative. She also underwent peripheral angiogram in 2023 which was negative for arterial stenosis/ arterial disease. Ankle xray No jace cortical bone destruction. MRI negative for osteomyelitis. MRSA nares negative. Plan: -Blood cultures from 03/16 returned positive GPC 2/2 continue: - vancomycin 03/17/25- & cefepime 2g q8hr 03/17/25- - wound care - echo pending - repeat blood cultures pending - IV dilaudid 0.25mg q4hr PRN #Insulin dependent Type 2 diabetes mellitus-poorly controlled Patient is on Tresiba 12 U qday with sliding scale insulin and metformin. A1c 7.9%. Plan: - Glargine 12 units qday - Sliding scale insulin with fingerstick blood sugar checks - hypoglycemia protocol - Lyrica for neuropathic pain #Metabolic acidosis #Electrolyte abnormalities Unknown cause of metabolic acidosis. Less likely DKA blood sugars well- controlled. Most recent lactic acid within normal limits. No recent history of diarrhea. ?sodium bicarb 325 mg daily ? Replete electrolytes as needed #Hypertension #History of valve disease Patient is following with Dr. Phelan. She has multiple blood pressure medication on board, including nicardipine. In the ED, her BP was ranging from 77/56 to the SBP in the 170s. Plan: - amlodipine 5 mg qday - hydralazine 10 mg IV prn q2hr if SBP>180 - consider consulting cardiology if BP is not controlled - home olmesartan and spironolactone on hold due hyperkalemia #Hyperkalemia-resolved Most likely side effect of spironolactone and olmesartan. Plan: - spironolactone and olmesartan on hold - monitor daily CMP #History of depression Plan: - resumed home lexapro #Hypothyroidism Plan: - resumed home levothyroxine 75mcg #Anemia #Iron deficiency Patient's hemoglobin 6.6, possible etiology of multifactorial anemia, does have significant iron deficiency According to chart review, appears chronic, most likely in the setting of chronic disease. Iron panel shows iron 8 mcg/dL, TIBC 165, iron saturation 4% Patient denies any blood in stool Plan: - FOBT pending - transfuse of Hgb<7 - Will consider discharging on iron tablets Health maintenance: FEN: cardiac, carbohydrate consistent DVT prophylaxis: heparin sc GI prophylaxis: none Dispo: IV antibiotics, echo pending CODE STATUS: DNR (patient declined resuscitation in case of cardiac arrest, witnessed by the daughter and Dr. Aguilera) The patient's management plan was discussed with my attending physician Dr. Madden. Martha Johnson, PGY-1 Attending Provider Attestation/Addendum 74-year-old female with diabetic foot ulcer, bacteremia gram-positive organism. Patient is on cefepime and vancomycin. Vancomycin trough is 28.5 BUN 11 creatinine 0.4. Patient will continue discussed with housestaff
--- NOTE | 2025-03-21 15:20 | PC.SS ---
SS met with pt and spoke to her dtr, Christine to discuss SNF. DtrChristine is requesting a SNF in the [facility]. SS has sent inquiry using [facility] (90 mile radius from [facility]).
[2025-03-21] MEDS: ATORVASTATIN CALCIUM 20 MG TABLET PO (22:56)
[2025-03-22] VITALS (10 sets, daily range): BP systolic 110–159; BP diastolic 60–87; PULSE 76–108; RESP 17–22; TEMP 36.1–36.9; O2SAT 95–99
[2025-03-22] MEDS: HYDROmorphone INJ 2 MG/ML VIAL 0.25 MG IVP ×3 (00:51→20:43)
[2025-03-22 06:22] LABS: Basophils # (Auto) 0.1 Thou/mm3 (0.0-0.2); Basophils % (Auto) 0 % (0-2.5); Eosinophils % (Auto) 0 % (0-10); Hematocrit 27.6 % (36.0-46.0); Hemoglobin 9.1 g/dL (12.0-16.0); Immature Granulocytes % (Auto) 1 % (0-0); Lymphocytes # (Auto) 1.6 Thou/mm3 (1.0-4.8); Lymphocytes % (Auto) 11 % (10-50); Mean Corpuscular Hemoglobin 30.1 pg (25.0-35.0); Mean Corpuscular Volume 91 fL (80-100); Monocytes # (Auto) 0.8 Thou/mm3 (0.0-0.8); Monocytes % (Auto) 6 % (0-12); Neutrophils # (Auto) 11.6 Thou/mm3 (1.8-7.7); Neutrophils % (Auto) 82 % (37-80); Nucleated Red Blood Cell % 0 /100 WBC (0); Platelet Count 331 Thou/mm3 (140-440); RDW Standard Deviation 59.4 fL (36.4-46.3); Red Blood Count 3.02 Miln/mm3 (4.00-5.20); White Blood Count 14.2 Thou/mm3 (3.6-11.0)
[2025-03-22] MEDS: CEFEPIME INJ 2 GM in SODIUM CHLORIDE 0.9% (Popper) 50 ML IV ×2 (06:42→13:38)
[2025-03-22] MEDS: LEVOTHYROXINE SODIUM 25 MCG TABLET 75 MCG PO (06:42)
[2025-03-22 07:18] LABS: Alanine Aminotransferase 18 U/L (10-49); Albumin, Serum 2.9 gm/dL (3.4-4.8); Albumin/Globulin Ratio 1.3 (1.2-2.2); Alkaline Phosphatase 88 U/L (46-116); Anion Gap 10 (7-16); Aspartate Amino Transferase 18 U/L (0-34); BUN/Creatinine Ratio 30 Ratio (12-20); Bilirubin,Total 0.5 mg/dL (0.3-1.2); Blood Urea Nitrogen 12 mg/dL (9-23); Calcium 7.9 mg/dL (8.3-10.6); Calcium (Corrected) 8.8 mg/dL (8.5-10.1); Carbon Dioxide 20.4 mMol/L (20.0-31.0); Chloride 105 mMol/L (98-107); Creatinine (Component) 0.4 mg/dL (0.6-1.3); Estimated Creatinine Clearance 91.7 mL/min (>60); Globulin 2.2 gm/dL (2.3-3.5); Glucose 158 mg/dL (74-106); Magnesium 1.7 mg/dL (1.6-2.6); Osmolality,Calculated 272 (275-295); Potassium 3.9 mMol/L (3.4-5.1); Sodium 135 mMol/L (136-145); Total Protein 5.1 gm/dL (5.7-8.2); Vancomycin,Random 8.6 mcg/mL; eGFR > 60 See Note
[2025-03-22] MEDS: INSULIN LISPRO (AdmeLOG) 1 UNIT/0.01 ML UNIT SC ×4 (07:48→20:45)
[2025-03-22] MEDS: amLODIPine BESYLATE 5 MG TABLET 10 MG PO (09:55)
[2025-03-22] MEDS: ESCITALOPRAM OXALATE 10 MG TABLET PO (09:55)
[2025-03-22] MEDS: SODIUM BICARBONATE 650 MG TABLET 325 MG PO (09:55)
[2025-03-22] MEDS: INSULIN GLARGINE (Lantus) 5 UNIT/0.05 ML (PER 5 UNITS) 12 UNIT SC (09:56)
[2025-03-22] MEDS: VANCOMYCIN/NS 1 GM IVPB 200 ML IV ×2 (09:59→22:20)
[2025-03-22] MEDS: HEPARIN SOD INJ 5000 UNIT/ML VIAL SC ×2 (10:17→20:43)
--- NOTE | 2025-03-22 11:40 | PC.SS ---
Addendum entered by Karin Tejeda 03/22/25 12:51: SS provided dtr, Christine with choices for SNF. [facility] [place] has accepted. [facility] [place] also accepted but dtr declined stating faciity is too far. SS spoke to Maryjo [phone] who states they can accommodate wound vac and IV antibiotic. Maryjo is aware dtr is interested in their facility. Dtr, Christine is aware of accepting SNF and declined the SNF in [facility]. Dtr states she will do an onsite at the [facility] in [place]. [facility] [facility] [place] [address] [place] [address] Shelter Facility Considering 03/22/2025 11:19 03/21/2025 15:10 Need more information - see notes ?(2) [facility] [place] [address] Shelter Facility 03/21/2025 15:10 ?(1) [facility] [address] Potter [phone] Shelter Facility 03/21/2025 15:10 ?(1) [facility] [place] [address] [place], [place] [phone] Shelter Facility Yes 03/22/2025 10:16 03/21/2025 15:16 We can accept this patient. Thank you for your referral ?(2) [facility] HDI[address] [place] [address] Shelter Facility 03/21/2025 15:10 ?(1) Jannie Sera/SBSM[address] [place] [phone] Shelter Facility 03/21/2025 15:10 ?(1) Jeovanny Benitez[address] [facility] [place] [address] Shelter Facility No 03/21/2025 15:22 03/21/2025 15:10 Unable to meet specialty/medical needs ?(1) [facility] [address] [place], [place] [phone] Shelter Facility No 03/21/2025 15:22 03/21/2025 15:10 Unable to meet specialty/medical needs ?(1) [facility] Sarn[address] [place] [address] Shelter Facility No 03/21/2025 15:37 03/21/2025 15:10 Unable to meet specialty/medical needs ?(1) [facility] [address] [place], [place] [phone] Shelter Facility No [facility]VyifkHfrroafpxeu[address] [place] [address] Shelter Facility 03/21/2025 15:10 ?(1) [facility] - LRF[address] [place], [place] [phone] Shelter Facility [phone] 03/21/2025 15:48 03/21/2025 15:10 We can accept this patient. Thank you for your referral ?(2) [facility] [address] [place], [place] [phone] Shelter Facility 03/21/2025 15:10 ?(1) [facility] Lunvvs[address], [place] [phone] Shelter Facility No 03/21/2025 15:23 03/21/2025 15:10 Unable to meet specialty/medical needs ?(1) [facility] [address] [place], [place] [phone] Shelter Facility No 03/22/2025 06:02 03/21/2025 15:10 Unable to meet specialty/medical needs ?(2) [facility] [address] [place] [address] Shelter Facility No 03/21/2025 16:01 03/21/2025 15:10 Unable to meet specialty/medical needs ?(1) [facility] Shelter [address] [place], [place] [phone] Shelter Facility No 03/21/2025 15:13 03/21/2025 15:10 No bed available ?(2) [facility] [address] [place] [address] Shelter Facility Yes 03/22/2025 08:59 03/21/2025 15:10 We can accept this patient. Thank you for your referral ?(3) [facility] Vzwcutyvaz[address] [facility] [place], [place] [phone] Shelter Facility Considering 03/21/2025 16:01 03/21/2025 15:10 Need more information - see notes ?(2) [facility] [address]ms[address] [place], [place] [phone] Shelter Facility No [facility] Iftygf[address] [place], [place] [phone] Shelter Facility Yes 03/21/2025 15:16 03/21/2025 15:10 We can accept this patient. Thank you for your referral ?(2) [facility] [place] [address] Shelter Facility No 03/21/2025 16:01 03/21/2025 15:16 Unable to meet specialty/medical needs ?(1) [facility] [address] [place] [address] Shelter Facility 03/21/2025 15:16 ?(1) [facility] [place], [place] [phone] Shelter Facility Yes 03/21/2025 15:18 03/21/2025 15:16 We can accept this patient. Thank you for your referral ?(1) [facility] [place], [place] [phone] Shelter Facility Yes 03/21/2025 22:21 03/21/2025 15:16 We can accept this patient. Thank you for your referral ?(1) [facility] - ([facility])[address] [place] [address] Shelter Facility 03/21/2025 15:16 ?(1) [facility] Sumkt[address] [place], [place] [phone] Shelter Facility 03/21/2025 15:16 ?(1) [facility] Eah[facility]u[address] [place] [address] Shelter Facility Yes 03/21/2025 15:48 03/21/2025 15:16 We can accept this patient. Thank you for your referral ?(2) [facility] Skilled [address] [place] [address] Shelter Facility No 03/21/2025 15:41 03/21/2025 15:16 No bed available ?(1) [facility] Zwef[address]32 [place] [address] Shelter Facility 03/21/2025 15:16 ?(1) [facility] J[address] [facility] [place] [phone] Shelter Facility 03/21/2025 15:16 ?(1) [facility] [place] [address] Shelter Facility Yes 03/21/2025 15:32 03/21/2025 15:16 We can accept this patient. Thank you for your referral ?(2) [facility] [place] [address] Shelter Facility 03/21/2025 15:16 ?(1) [facility] [place] [address] [place], [place] [phone] Shelter Facility Considering 03/22/2025 12:33 03/21/2025 15:16 Pending nurse evaluation ?(1) [facility] [address] [place], [place] [phone] Shelter Facility No 03/21/2025 16:10 03/21/2025 15:16 Unable to meet specialty/medical needs ?(1) [facility] Zdgvvk[address] [place], [place] [phone] Shelter Facility Yes 03/22/2025 10:20 03/21/2025 15:16 We can accept this patient. Thank you for your referral ?(1) [facility] Voz[address] [place], [place] [phone] Shelter Facility No 03/21/2025 15:28 03/21/2025 15:16 No bed available ?(1) [facility] Llgtroel[address] [facility] [address] [place] [address] Shelter Facility 03/21/2025 15:16 ?(1) [facility] Sfilm[address] [place] [address] Shelter Facility No [facility] KhffNipazvka[address] [place], [place] [phone] Shelter Facility 03/21/2025 15:16 ?(1) [facility] [place] [address] Shelter Facility Yes 03/21/2025 15:48 03/21/2025 15:16 We can accept this patient. Thank you for your referral ?(1) [place] [id number] [place] [phone] Shelter Facility Considering 03/21/2025 15:34 03/21/2025 15:16 Need more information - see notes ?(2) [facility] [place] [phone] Shelter Facility 03/21/2025 15:16 ?(1) [facility] Qufik[address] [place] [phone] Shelter Facility Considering 03/21/2025 15:37 03/21/2025 15:16 Other ?(2) [facility] [place] [phone] Shelter Facility 03/21/2025 15:16 ?(1) [facility] [place] [address] Shelter Facility No 03/21/2025 15:41 03/21/2025 15:16 Other ?(2) [facility] [place], [place] [phone] Shelter Facility Yes 03/21/2025 17:13 03/21/2025 15:16 We can accept this patient. Thank you for your referral ?(3) [facility] [place], [place] [phone] Shelter Facility Yes 03/21/2025 16:06 03/21/2025 15:16 We can accept this patient. Thank you for your referral ?(3) [address]klxwnv[address] [place] [address] Shelter Facility [facility]01 [place] [address] Shelter Facility No 03/21/2025 15:21 03/21/2025 15:18 Unable to meet specialty/medical needs ?(2) [facility] Vunobt4071 [place], [place] [phone] Shelter Facility 03/21/2025 15:18 ?(1) [facility] [place] [address] Shelter Facility Yes 03/21/2025 15:21 03/21/2025 15:18 We can accept this patient. Thank you for your referral ?(1) [facility] [place] [facility] [place], [place] [phone] Shelter Facility Considering 03/21/2025 15:41 03/21/2025 15:18 Verifying insurance ?(1) [facility] [address] [place], [place] [phone] Shelter Facility Yes 03/22/2025 09:36 03/21/2025 15:18 We can accept this patient. Thank you for your referral ?(1) [facility] [place] [address] Shelter Facility No 03/21/2025 21:39 03/21/2025 15:18 Insurance out of network ?(1) [facility] [place] [address] Shelter Facility Yes 03/21/2025 15:20 03/21/2025 15:18 We can accept this patient. Thank you for your referral ?(1) [facility] [place], [place] [phone] Shelter Facility No 03/21/2025 16:15 03/21/2025 15:18 Unable to meet specialty/medical needs ?(1) [facility] [place], [place] [phone] Shelter Facility Considering 03/21/2025 15:38 03/21/2025 15:18 Pending nurse evaluation ?(1) [facility] [place] [address] Shelter Facility [facility] Crdzna[address] [place] [address] Shelter Facility No 03/22/2025 11:14 03/21/2025 15:16 No bed available ?(2) [facility] [place] [address] [place] [address] Shelter Facility Yes 03/21/2025 16:52 03/21/2025 15:18 We can accept this patient. Thank you for your referral ?(2) [facility] E[address]aw[address] [place], [place] [phone] Shelter Facility 03/21/2025 15:18 ?(1) [facility] Center[facility]4[address] [place], [place] [phone] Shelter Facility Yes 03/21/2025 15:49 03/21/2025 15:18 We can accept this patient. Thank you for your referral ?(3) [facility] [place], [place] [phone] Shelter Facility No 03/21/2025 15:28 03/21/2025 15:18 Unable to meet specialty/medical needs ?(1) [facility] [address] [place], [place] [phone] Shelter Facility Yes 03/21/2025 15:21 03/21/2025 15:18 We can accept this patient. Thank you for your referral ?(2) [facility] Skilled T[address]ulvc[address] [place] [address] Shelter Facility 03/21/2025 15:18 ?(1) [facility] & [address]qwi[address] [place] [address] Shelter Facility Yes 03/22/2025 12:26 03/21/2025 15:18 We can accept this patient. Thank you for your referral ?(2) [facility] [place], [place] [phone] Shelter Facility No 03/21/2025 15:35 03/21/2025 15:18 No bed available ?(1) [facility] Fmwnvn[address] K[address] [facility] Leon[place] [phone] Shelter Facility No [place] [facility] Tvknzy[address] [place], [place] [phone] Shelter Facility No 03/21/2025 15:51 03/21/2025 15:18 Unable to meet specialty/medical needs ?(1) [facility] [address]nj[address] [place], [place] [phone] Shelter Facility Yes 03/21/2025 15:30 03/21/2025 15:18 We can accept this patient. Thank you for your referral ?(1) [facility] [place] [phone] Shelter Facility Yes 03/22/2025 07:52 03/21/2025 15:18 We can accept this patient. Thank you for your referral ?(2) [facility] [place], [place] [phone] Shelter Facility Considering 03/21/2025 15:23 03/21/2025 15:18 Need more information - see notes ?(2) [facility] YZKS[address] [place] [address] Shelter Facility Original Note: Follow up note: On IV antibiotic. Consulting ID and will require Wound Vac at nh. Family is requesting SNF in [facility]. Inquiry for SNF has been sent.
[2025-03-22] MEDS: Silvasorb Gel 45 ML TUBE TOP (12:45)
--- NOTE | 2025-03-22 15:43 | PD.IDPROG ---
Subjective Subjective Interval history: pt is 74 y/o with coag neg (different species) in initial bc and then 1/2 pos more recently, but may still be contaminated. has du's and is diabetic with multiple allergies. Exam Vital Signs Temp Pulse Resp BP Pulse Ox O2 Del Method 97.6 F 97 22 H 158/60 H 98 Room Air 03/22/25 12:00 03/22/25 13:02 03/22/25 12:00 03/22/25 12:00 03/22/25 12:00 03/22/25 12:00 Narrative Exam seems hyper-sensitive. jumpy when bc done too, so that may account for the coag neg in a thin person. prior angiogram ok by report but not done here. so will get arterial dopplers and go from there Objective - Internal Medicine Labs 03/22/25 05:38 03/22/25 05:38 Labs: Laboratory Results - last 24 hr 03/22/25 05:38 WBC 14.2 H RBC 3.02 L Hgb 9.1 L Hct 27.6 L MCV 91 MCH 30.1 MCHC 33.0 RDW Std Deviation 59.4 H Plt Count 331 Neut % (Auto) 82 H Lymph % (Auto) 11 [place] % (Auto) 6 Eos % (Auto) 0 Baso % (Auto) 0 Neut # (Auto) 11.6 H Lymph # (Auto) 1.6 [place] # (Auto) 0.8 Eos # (Auto) 0.0 Baso # (Auto) 0.1 Immature Gran # (Auto) 0.20 H Absolute Nucleated RBC 0.00 Immature Gran % 1 H Nucleated RBC % 0 Sodium 135 L Potassium 3.9 Chloride 105 Carbon Dioxide 20.4 Anion Gap 10 BUN 12 Creatinine 0.4 L Estim Creat Clear Calc 91.7 eGFR > 60 BUN/Creatinine Ratio 30 H Glucose 158 H Calculated Osmolality 272 L Calcium 7.9 L Corrected Calcium 8.8 Magnesium 1.7 Total Bilirubin 0.5 AST 18 ALT 18 Alkaline Phosphatase 88 Total Protein 5.1 L Albumin 2.9 L Globulin 2.2 L Albumin/Globulin Ratio 1.3 Random Vancomycin 8.6 ABG Interpretation ABG results: 03/17/25 03/19/25 00:53 11:07 ABG pH 7.44 ABG pCO2 36 ABG pO2 81 L ABG HCO3 24 ABG O2 Saturation 95 ABG Base Excess 0 VBG pH 7.36 VBG pCO2 32 L VBG pO2 41 VBG Base Excess -6 L Assessment & Plan A&P Narrative Bacteremia with different coag neg species in bc done at nearly the same time and a normal procal history thru son as pt is primarily bengali speaking. she lives with his sister though so she may have poa. other problems as noted ordered arterial dopplers bilaterally and will check in again on thursday. note neg procal originally , will repeat . if still neg and germ in bc is another coag neg, then ok to stop the vanco she may want something. if dopplers abnormal. then f/u with vascular. if not, I am not sure we have any more we can do for her other than try chronic po doxy 100 bid control dm too please Time Spent With Patient Time: Total time spent is greater than 50% in coordination of care (as documented) at patient's floor/unit and/or counseling patient:
--- NOTE | 2025-03-22 15:57 | XR_ITS ---
Examination: Arterial duplex lower extremity study. Date and time of exam: March 22, 2025 at 1652 hrs. Indications: Nonhealing right ankle ulcer 6 months, bilateral leg pain today Findings: Duplex sonographic imaging of the lower extremity arteries using B-mode/Gerard scale imaging and Doppler spectral analysis and color flow. Ankle brachial indices have been recorded. Right common femoral artery demonstrates biphasic flow. Right superficial femoral artery demonstrates biphasic flow. Right popliteal artery demonstrates biphasic flow. Right posterior tibial artery demonstrated monophasic flow. Right ankle/brachial index is 0.84. Left common femoral artery demonstrates biphasic flow. Left superficial femoral artery demonstrates monophasic flow. Left popliteal artery demonstrates biphasic flow. Left posterior tibial artery demonstrated monophasic flow. Left ankle/brachial index is .98. Impression: Bilateral peripheral obstructive arterial disease, more severe right leg, consider correlation with CTA abdominal aorta iliofemoral post contrast to assess site and severity of stenoses
--- NOTE | 2025-03-22 17:19 | ESPR_ITS ---
<Statement entered by Chuckie Santana MD - 03/23/25 14:31> I discussed with and supervised the internet security specialist physician involved in the care of this patient. Patient assessment and plan was discussed with entire medicine team, including my attending. I agree with the assessment and plan as documented by internet security specialist doctor. Patient care was discussed with my attending physician Dr. Chano Santana, PGY-2 Documentation for date of: 03/22/25 Subjective Subjective Interval history: Patient examined at bedside, complains of weakness. Decreased appetite. Lower extremity foot pain. Vitals stable, Blood sugar well controlled. WBC 14.2, potassium 3.9. Metabolic acidosis bicarb of 20. Continue oral bicarb, repleated magnesium and phosphate. Will continue to hold spironolactone and olmesartan due to patient's hyperkalemia at admission. Blood cultures from 03/16 returned positive GPC 2/2--Continuing vancomycin and cefepime. 03/18 Repeat blood cultures growing GPC. Echo is pending. Exam Vital Signs Temp Pulse Resp BP Pulse Ox O2 Del Method 98.1 F 102 H 18 140/79 H 98 Room Air 03/22/25 16:00 03/22/25 16:00 03/22/25 16:00 03/22/25 16:00 03/22/25 16:00 03/22/25 16:00 Narrative Exam General: Elderly female, Awake, ill-appearing HEENT: Normocephalic, atraumatic, mucous membranes dry. Heart: Regular rate and rhythm, no murmurs. Lungs: Clear to auscultation with no wheezing or crackles. Abdomen: Soft, nondistended, nontender, positive bowel sounds. ?No guarding or rebound tenderness. Neurologic: Alert, no gross neurological deficit, and patient able to move all 4 extremities. Extremities: Pitting 2+ edema of the feet, no ankle edema. Right foot is covered in bandage, right maleolous ulcer stage 2-3 Skin: sacral pressure ulcer stage 2, 3-4 inches long Objective Labs 03/22/25 05:38 03/22/25 05:38 Labs: Laboratory Results - last 24 hr 03/22/25 05:38 WBC 14.2 H RBC 3.02 L Hgb 9.1 L Hct 27.6 L MCV 91 MCH 30.1 MCHC 33.0 RDW Std Deviation 59.4 H Plt Count 331 Neut % (Auto) 82 H Lymph % (Auto) 11 [place] % (Auto) 6 Eos % (Auto) 0 Baso % (Auto) 0 Neut # (Auto) 11.6 H Lymph # (Auto) 1.6 [place] # (Auto) 0.8 Eos # (Auto) 0.0 Baso # (Auto) 0.1 Immature Gran # (Auto) 0.20 H Absolute Nucleated RBC 0.00 Immature Gran % 1 H Nucleated RBC % 0 Sodium 135 L Potassium 3.9 Chloride 105 Carbon Dioxide 20.4 Anion Gap 10 BUN 12 Creatinine 0.4 L Estim Creat Clear Calc 91.7 eGFR > 60 BUN/Creatinine Ratio 30 H Glucose 158 H Calculated Osmolality 272 L Calcium 7.9 L Corrected Calcium 8.8 Magnesium 1.7 Total Bilirubin 0.5 AST 18 ALT 18 Alkaline Phosphatase 88 Total Protein 5.1 L Albumin 2.9 L Globulin 2.2 L Albumin/Globulin Ratio 1.3 Random Vancomycin 8.6 ABG Interpretation ABG results: 03/17/25 03/19/25 00:53 11:07 ABG pH 7.44 ABG pCO2 36 ABG pO2 81 L ABG HCO3 24 ABG O2 Saturation 95 ABG Base Excess 0 VBG pH 7.36 VBG pCO2 32 L VBG pO2 41 VBG Base Excess -6 L Quality Measures Quality Measures VTE prophylaxis Advance care planning discussed with:: patient Assessment & Plan Assessment Current Active Medications: Generic Name Dose Route Start Last Admin Trade Name Freq PRN Reason Stop Dose Admin Acetaminophen 650 mg 03/17/25 00:05 03/21/25 08:38 Acetaminophen 325 Mg Tablet PO 04/16/25 00:04 650 mg Q6H PRN Administration Fever >100.3 or pain 1-3 Amlodipine Besylate 10 mg 03/22/25 09:00 03/22/25 09:55 Amlodipine Besylate 5 Mg Tablet PO 04/21/25 08:59 10 mg QDAY JESSICA Administration Atorvastatin Calcium 20 mg 03/17/25 21:00 03/21/25 22:56 Atorvastatin Calcium 20 Mg Tablet PO 04/16/25 20:59 20 mg HS JESSICA Administration Dextrose 25 ml 03/17/25 00:11 Dextrose 50%-Water Inj 50 Ml Syringe IV 04/16/25 00:10 Q15MIN PRN BG 50-70 responsive npo pt Dextrose 50 ml 03/17/25 00:11 Dextrose 50%-Water Inj 50 Ml Syringe IV 04/16/25 00:10 Q15MIN PRN BG <50 OR BG <70 & pt unresponsive Escitalopram Oxalate 10 mg 03/17/25 09:00 03/22/25 09:55 Escitalopram Oxalate 10 Mg Tablet PO 04/16/25 08:59 10 mg QDAY JESSICA Administration Glucagon 1 mg 03/17/25 00:11 Glucagon Inj 1 Mg Vial IM Q15MIN PRN BG <70, and no IV access Heparin Sodium (Porcine) 5,000 unit 03/19/25 21:00 03/22/25 10:17 Heparin Sod Inj 5000 Unit/Ml Vial SC 04/02/25 20:59 5,000 unit Q12HR JESSICA Administration Hydralazine HCl 10 mg 03/17/25 00:13 Hydralazine Inj 20 Mg/Ml Vial IV 04/16/25 01:59 Q2HR PRN SBP>180 Hydromorphone HCl 0.25 mg 03/22/25 15:31 03/22/25 15:44 Hydromorphone Inj 2 Mg/Ml Vial IVP 03/27/25 15:30 0.25 mg Q4HR PRN Administration PAIN SCALE 4-10(Mod-Sev Vancomycin/Sodium Chloride 200 mls @ 120 mls/hr 03/22/25 10:00 03/22/25 09:59 Vancomycin/Ns 1 Gm Ivpb IV 03/29/25 09:59 120 mls/hr Q12H JESSICA Administration Insulin Glargine 12 unit 03/17/25 09:00 03/22/25 09:56 Insulin Glargine (Lantus) 5 Unit/0.05 Ml (Per 5 Units) SC 04/16/25 08:59 12 unit QDAY JESSICA Administration Insulin Human Lispro 0 unit 03/17/25 07:30 03/22/25 11:46 Insulin Lispro (Admelog) 1 Unit/0.01 Ml Unit SC 04/16/25 07:29 2 unit AC JESSICA Administration Protocol Levothyroxine Sodium 75 mcg 03/17/25 06:00 03/22/25 06:42 Levothyroxine Sodium 25 Mcg Tablet PO 04/16/25 05:59 75 mcg ACBR JESSICA Administration Ondansetron HCl 4 mg 03/17/25 00:20 Ondansetron Inj 2 Mg/Ml Inj 2 Ml IV 04/16/25 00:19 Q6HR PRN NAUSEA OR VOMITING Protocol Pharmacy Consult 1 each 03/20/25 09:23 Vancomycin Pharmacy To Dose 1 Each Each IV 04/19/25 09:22 QDAY PRN CONSULT Polyethylene Glycol 17 gm 03/20/25 09:00 03/22/25 09:59 Polyethylene Glycol 17 Gm Packet PO 04/19/25 08:59 Not Given QDAY JESSICA Sennosides 2 tab 03/20/25 09:00 03/22/25 09:59 Senna Tablet PO 04/19/25 08:59 Not Given QDAY JESSICA Protocol Sodium Bicarbonate 325 mg 03/20/25 14:00 03/22/25 09:55 Sodium Bicarbonate 650 Mg Tablet PO 04/19/25 13:59 325 mg DAILY JESSICA Administration Plan Katharine Goldberg is a 74-year-old female with a previous medical history of hypertension, hypothyroidism, insulin-dependent diabetes mellitus, osteoporosis, hemorroids, lateral ankle chronic wound who was brought to the ED due to general weakness, nausea and vomiting. Patient is going to be admitted for soft tissue infection work up and management. #GPC bacteremia #Soft tissue infection #Right lateral malleolus ulcer #Diabetic foot ulcer qSOFA score is 0. Patient is generally weak and has 2 potential sources of infection - pressure sores and chronic ankle wound. She has also chronic leukocytosis and has received multiple courses of antibiotics before. 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 Hepatitis panel was negative, cryglobulin was negative. She also underwent peripheral angiogram in 2023 which was negative for arterial stenosis/ arterial disease. Ankle xray No jace cortical bone destruction. MRI negative for osteomyelitis. MRSA nares negative. Plan: -Blood cultures from 03/16 returned positive GPC 2/2 continue: - vancomycin 03/17/25- & cefepime 2g q8hr 03/17/25- - wound care - echo pending - repeat blood cultures pending - IV dilaudid 0.25mg q4hr PRN #Insulin dependent Type 2 diabetes mellitus-poorly controlled Patient is on Tresiba 12 U qday with sliding scale insulin and metformin. A1c 7.9%. Plan: - Glargine 12 units qday - Sliding scale insulin with fingerstick blood sugar checks - hypoglycemia protocol - Lyrica for neuropathic pain #Metabolic acidosis #Electrolyte abnormalities Unknown cause of metabolic acidosis. Less likely DKA blood sugars well- controlled. Most recent lactic acid within normal limits. No recent history of diarrhea. ?sodium bicarb 325 mg daily ? Replete electrolytes as needed #Hypertension #History of valve disease Patient is following with Dr. Phelan. She has multiple blood pressure medication on board, including nicardipine. In the ED, her BP was ranging from 77/56 to the SBP in the 170s. Plan: - amlodipine 5 mg qday - hydralazine 10 mg IV prn q2hr if SBP>180 - consider consulting cardiology if BP is not controlled - home olmesartan and spironolactone on hold due hyperkalemia #Hyperkalemia-resolved Most likely side effect of spironolactone and olmesartan. Plan: - spironolactone and olmesartan on hold - monitor daily CMP #History of depression Plan: - resumed home lexapro #Hypothyroidism Plan: - resumed home levothyroxine 75mcg #Anemia #Iron deficiency Patient's hemoglobin 6.6, possible etiology of multifactorial anemia, does have significant iron deficiency According to chart review, appears chronic, most likely in the setting of chronic disease. Iron panel shows iron 8 mcg/dL, TIBC 165, iron saturation 4% Patient denies any blood in stool Plan: - FOBT pending - transfuse of Hgb<7 - Will consider discharging on iron tablets Health maintenance: FEN: cardiac, carbohydrate consistent DVT prophylaxis: heparin sc GI prophylaxis: none Dispo: IV antibiotics, echo pending CODE STATUS: DNR (patient declined resuscitation in case of cardiac arrest, witnessed by the daughter and Dr. Aguilera) The patient's management plan was discussed with my attending physician Dr. Madden. Martha Johnson, PGY-1 Attending Provider Attestation/Addendum 74-year-old female with staphylococcal bacteremia, foot ulcer. Patient is on IV antibiotics. Echocardiogram pending. Discussed with housestaff
--- NOTE | 2025-03-22 17:58 | ESCONSULT_ITS ---
HPI Data of Consult Patient: new to practice Consult date: 03/22/25 Requesting Physician: Solis Madden MD Admitting Provider: Mathew Morin DO Attending Provider: Solis Madden MD Primary Care Provider: Physician No Primary/Family Consult Narrative Reason for consult: GPC bacteremia History of present illness: Patient is a 74-year-old female with past medical history of hypertension, hypothyroid, insulin-dependent diabetes, osteoporosis, hemorrhoids, right ankle lateral chronic wound who presented to [facility] with chief complaint of generalized weakness and nausea vomiting. Patient has been having gradual progressive weakness about a year prior patient had a right ankle fracture for which her mobility has been declining. She has also developed a chronic ulcer on the lateral side of her right ankle for which she was followed up at the wound care center for for hyperbaric oxygen. At baseline she is able to ambulate with the assistance of a walker. During the course of her hospitalization she was found to have positive blood cultures on March 16 with 2 different coagulase-negative staph species along with repeat positive blood culture on March 18 for which speciation is currently unavailable. Social history: lives with her daughter, not a smoker Medications: Bumetanide 0.5, nicardipine 20 mg twice daily, pantoprazole, escitalopram, metformin, spironolactone, olmesartan, atorvastatin, doxycycline, levothyroxine, metoprolol, alendronate. Surgical history: hernia repair, hysterectomy, ORIF of the right hip Allergies: reports sensitivity to opioids - vomiting, most likely side effect, penicillin. cc:: cc: Solis Madden MD Review of Systems Review of Systems Systems Reviewed: All systems reviewed, normal except as documented Exam Vital Signs Temp Pulse Resp BP Pulse Ox O2 Del Method 98.1 F 102 H 18 140/79 H 98 Room Air 03/22/25 16:00 03/22/25 16:00 03/22/25 16:00 03/22/25 16:03/22/25 16:03/22/25 16:00 Narrative Exam General: Elderly female, Awake, ill-appearing HEENT: Normocephalic, atraumatic, mucous membranes dry. Heart: Regular rate and rhythm, no murmurs. Lungs: Clear to auscultation with no wheezing or crackles. Abdomen: Soft, nondistended, nontender, positive bowel sounds. ?No guarding or rebound tenderness. Neurologic: Alert, no gross neurological deficit, and patient able to move all 4 extremities. Extremities: Pitting 2+ edema of the feet, no ankle edema. Right foot is covered in bandage, right maleolous ulcer stage 2-3 Skin: sacral pressure ulcer stage 2, 3-4 inches long Results Labs 03/22/25 05:38 03/22/25 05:38 Labs: Short CBC 03/22/25 Range/Units 05:38 WBC 14.2 H (3.6-11.0) Thou/mm3 Hgb 9.1 L (12.0-16.0) g/dL Hct 27.6 L (36.0-46.0) % Plt Count 331 (140-440) Thou/mm3 BMP 03/22/25 05:38 Sodium 135 L Potassium 3.9 Chloride 105 Carbon Dioxide 20.4 BUN 12 Creatinine 0.4 L Glucose 158 H Calcium 7.9 L Liver Function 03/22/25 Range/Units 05:38 Total Bilirubin 0.5 (0.3-1.2) mg/dL AST 18 (0-34) U/L ALT 18 (10-49) U/L Alkaline Phosphatase 88 (46-116) U/L Albumin 2.9 L (3.4-4.8) gm/dL ABG Interpretation ABG results: 03/17/25 03/19/25 00:53 11:07 ABG pH 7.44 ABG pCO2 36 ABG pO2 81 L ABG HCO3 24 ABG O2 Saturation 95 ABG Base Excess 0 VBG pH 7.36 VBG pCO2 32 L VBG pO2 41 VBG Base Excess -6 L Quality Measures Quality Measures VTE prophylaxis Advance care planning discussed with:: other Medications Home Medications and Allergies Home Medications ?Medication ?Instructions ?Recorded ?Confirmed ?Type levothyroxine 75 mcg tablet 75 mcg PO QDAY 04/13/19 History alendronate 70 mg tablet 70 mg PO QWEEK 07/11/2402/28 History atorvastatin 20 mg tablet 20 mg PO QDAY 07/11/2403/17 History metoprolol succinate 25 mg 25 mg PO DAILY 07/11/24 History tablet,extended release 24 hr nicardipine 20 mg capsule 20 mg PO BID 07/11/24 History sitagliptin phosphate 25 mg tablet 25 mg PO DAILY 06/3008/08/24 History (Januvia) insulin degludec 200 unit/mL (3 10 unit subcut QPM 05/2308/08/24 History mL) subcutaneous pen (Tresiba FlexTouch U-200 insulin) metformin 500 mg tablet 500 mg PO BID 08/05/2403/17 History magnesium oxide 400 mg (241.3 mg 400 mg PO BID 08/08/24 History magnesium) tablet pantoprazole 40 mg tablet,delayed 40 mg PO DAILY 08/0803/17/25 History release bumetanide 0.5 mg tablet 0.5 mg PO QDAY 03/17/2502/28 History doxycycline hyclate 100 mg tablet 100 mg PO Q12H 03/1703/17/25 History escitalopram oxalate 10 mg tablet 10 mg PO QDAY 03/17/25 History olmesartan 20 mg tablet 20 mg PO QDAY 03/17/2503/17 History spironolactone 25 mg tablet 25 mg PO QDAY 03/17/25 History Allergies Allergy/AdvReac Type Severity Reaction Status Date / Time codeine Allergy Severe Vomiting Verified 03/16/25 19:12 hydrocodone Allergy Severe Vomiting Verified 03/16/25 19:12 morphine Allergy Severe GOES Verified 03/16/25 19:12 CRAZY Penicillins Allergy Severe Swelling Verified 03/16/25 19:12 of Lip/Tongue/Throat tramadol Allergy Severe Vomiting Verified 03/16/25 19:12 acetaminophen (From Vicodin) Allergy Vomiting Verified 03/16/25 19:12 Visit Medications Acetaminophen (Acetaminophen 325 Mg Tablet) 650 mg PO Q6H PRN PRN Reason: Fever >100.3 or pain 1-3 Stop: 04/16/25 00:04 Last Admin: 03/21/25 08:38 Dose: 650 mg Amlodipine Besylate (Amlodipine Besylate 5 Mg Tablet) 10 mg PO QDAY JESSICA Stop: 04/21/25 08:59 Last Admin: 03/22/25 09:55 Dose: 10 mg Atorvastatin Calcium (Atorvastatin Calcium 20 Mg Tablet) 20 mg PO HS REPLACED BY [facility] Stop: 04/16/25 20:59 Last Admin: 03/21/25 22:56 Dose: 20 mg Dextrose (Dextrose 50%-Water Inj 50 Ml Syringe) 25 ml IV Q15MIN PRN PRN Reason: BG 50-70 responsive npo pt Stop: 04/16/25 00:10 Dextrose (Dextrose 50%-Water Inj 50 Ml Syringe) 50 ml IV Q15MIN PRN PRN Reason: BG <50 OR BG <70 & pt unresponsive Stop: 04/16/25 00:10 Escitalopram Oxalate (Escitalopram Oxalate 10 Mg Tablet) 10 mg PO QDAY REPLACED BY [facility] Stop: 04/16/25 08:59 Last Admin: 03/22/25 09:55 Dose: 10 mg Glucagon (Glucagon Inj 1 Mg Vial) 1 mg IM Q15MIN PRN PRN Reason: BG <70, and no IV access Heparin Sodium (Porcine) (Heparin Sod Inj 5000 Unit/Ml Vial) 5,000 unit SC Q12HR REPLACED BY [facility] Stop: 04/02/25 20:59 Last Admin: 03/22/25 10:17 Dose: 5,000 unit Hydralazine HCl (Hydralazine Inj 20 Mg/Ml Vial) 10 mg IV Q2HR PRN PRN Reason: SBP>180 Stop: 04/16/25 01:59 Hydromorphone HCl (Hydromorphone Inj 2 Mg/Ml Vial) 0.25 mg IVP Q4HR PRN PRN Reason: PAIN SCALE 4-10(Mod-Sev Stop: 03/27/25 15:30 Last Admin: 03/22/25 15:44 Dose: 0.25 mg Vancomycin/Sodium Chloride (Vancomycin/Ns 1 Gm Ivpb) 200 mls @ 120 mls/hr IV Q12H REPLACED BY [facility] Stop: 03/29/25 09:59 Last Admin: 03/22/25 09:59 Dose: 120 mls/hr Insulin Glargine (Insulin Glargine (Lantus) 5 Unit/0.05 Ml (Per 5 Units)) 12 unit SC QDAY REPLACED BY [facility] Stop: 04/16/25 08:59 Last Admin: 03/22/25 09:56 Dose: 12 unit Insulin Human Lispro (Insulin Lispro (Admelog) 1 Unit/0.01 Ml Unit) 0 unit SC AC REPLACED BY [facility]; Protocol Stop: 04/16/25 07:29 Last Admin: 03/22/25 17:22 Dose: 2 unit Levothyroxine Sodium (Levothyroxine Sodium 25 Mcg Tablet) 75 mcg PO ACBR JESSICA Stop: 04/16/25 05:59 Last Admin: 03/22/25 06:42 Dose: 75 mcg Ondansetron HCl (Ondansetron Inj 2 Mg/Ml Inj 2 Ml) 4 mg IV Q6HR PRN; Protocol PRN Reason: NAUSEA OR VOMITING Stop: 04/16/25 00:19 Pharmacy Consult (Vancomycin Pharmacy To Dose 1 Each Each) 1 each IV QDAY PRN PRN Reason: CONSULT Stop: 04/19/25 09:22 Polyethylene Glycol (Polyethylene Glycol 17 Gm Packet) 17 gm PO QDAY REPLACED BY [facility] Stop: 04/19/25 08:59 Last Admin: 03/22/25 09:59 Dose: Not Given Sennosides (Senna Tablet) 2 tab PO QDAY JESSICA; Protocol Stop: 04/19/25 08:59 Last Admin: 03/22/25 09:59 Dose: Not Given Sodium Bicarbonate (Sodium Bicarbonate 650 Mg Tablet) 325 mg PO DAILY JESSICA Stop: 04/19/25 13:59 Last Admin: 03/22/25 09:55 Dose: 325 mg Discontinued Medications Acetaminophen (Acetaminophen 325 Mg Tablet) 650 mg PO X1 ONE Stop: 03/16/25 21:26 Last Admin: 03/16/25 22:26 Dose: Not Given Amlodipine Besylate (Amlodipine Besylate 5 Mg Tablet) 5 mg PO QDAY JESSICA Stop: 04/16/25 08:59 Last Admin: 03/21/25 08:39 Dose: 5 mg Amlodipine Besylate (Amlodipine Besylate 5 Mg Tablet) 5 mg PO NOW ONE Stop: 03/21/25 09:16 Last Admin: 03/21/25 12:29 Dose: Not Given Heparin Sodium (Porcine) (Heparin Sod Inj 5000 Unit/Ml Vial) 5,000 unit SC Q8HR JESSICA Stop: 03/31/25 05:59 Last Admin: 03/19/25 05:06 Dose: 5,000 unit Hydromorphone HCl (Hydromorphone Inj 2 Mg/Ml Vial) 0.25 mg IVP Q4HR PRN PRN Reason: PAIN SCALE 4-10(Mod-Sev Stop: 03/22/25 10:59 Last Admin: 03/22/25 00:51 Dose: 0.25 mg Hydromorphone HCl (Hydromorphone Inj 2 Mg/Ml Vial) 0.25 mg IVP X1 ONE Stop: 03/21/25 01:42 Last Admin: 03/21/25 02:04 Dose: 0.25 mg Sodium Chloride (Ns) 1,000 mls @ 999 mls/hr IV .Q1H1M ONE Stop: 03/16/25 21:29 Last Infusion: 03/16/25 22:27 Dose: Infused Ceftriaxone Sodium 1,000 mg/ (Sodium Chloride) 50 mls @ 100 mls/hr IV X1 ONE Stop: 03/16/25 21:57 Last Infusion: 03/16/25 22:54 Dose: Infused Cefepime HCl 2 gm/ Sodium (Chloride) 50 mls @ 100 mls/hr IV Q8HR REPLACED BY [facility] Stop: 03/24/25 06:14 Last Admin: 03/22/25 13:38 Dose: 100 mls/hr Cefepime HCl 2 gm/ Sodium (Chloride) 50 mls @ 100 mls/hr IV X1 ONE Stop: 03/17/25 01:14 Last Infusion: 03/17/25 01:50 Dose: Infused Cefepime HCl 2 gm/ Sodium (Chloride) 50 mls @ 100 mls/hr IV X1 ONE Stop: 03/17/25 01:43 Last Admin: 03/17/25 01:16 Dose: Not Given Magnesium Sulfate (Magnesium Sulfate Ivpb) 2 gm in 50 mls @ 25 mls/hr IV X1 ONE Stop: 03/20/25 10:37 Last Admin: 03/20/25 09:53 Dose: 25 mls/hr Vancomycin/Sodium Chloride (Vancomycin/Ns 750 Mg Ivpb) 750 mg in 150 mls @ 120 mls/hr IV Q8HR REPLACED BY [facility]; Protocol Stop: 03/27/25 09:29 Last Admin: 03/21/25 07:53 Dose: Not Given Insulin Human Regular (Insulin Hum Regular 1 Unit/0.01 Ml (Per Unit)) 5 unit IV X1 ONE Stop: 03/16/25 20:31 Last Admin: 03/16/25 21:21 Dose: 5 unit Ketorolac Tromethamine (Ketorolac Inj 30 Mg/Ml Vial) 15 mg IVP Q6HR PRN PRN Reason: PAIN SCALE 4-10(Mod-Sev Stop: 03/22/25 00:08 Last Admin: 03/19/25 05:08 Dose: 15 mg Morphine Sulfate (Morphine Sulf Inj 10 Mg/Ml Vial) 4 mg IVP X1 ONE Stop: 03/16/25 20:30 Last Admin: 03/16/25 21:07 Dose: Not Given Nystatin (Nystatin Susp 5 Ml Udc) 5 ml PO QID JESSICA Stop: 03/18/25 06:59 Last Admin: 03/18/25 05:31 Dose: 5 ml Ondansetron HCl (Ondansetron Inj 2 Mg/Ml Inj 2 Ml) 4 mg IV X1 ONE; Protocol Stop: 03/16/25 20:30 Last Admin: 03/16/25 21:22 Dose: Not Given Pharmacy Consult (Vancomycin Pharmacy To Dose 1 Each Each) 1 each IV QDAY JESSICA Stop: 04/16/25 08:59 Polyethylene Glycol (Polyethylene Glycol 17 Gm Packet) 34 gm PO QDAY JESSICA Stop: 04/19/25 08:59 Last Admin: 03/20/25 08:04 Dose: 34 gm Potassium Phos/Sodium Phos (Naph,[facility] Mbdb 1 Packet (1.5 Gm)) 1 packet PO X1 ONE Stop: 03/20/25 08:38 Last Admin: 03/20/25 09:53 Dose: 1 packet Sennosides (Senna Tablet) 1 tab PO QDAY PRN; Protocol PRN Reason: constipation Stop: 04/16/25 00:04 Last Admin: 03/19/25 05:09 Dose: 1 tab Vancomycin/Sodium Chloride (Vancomycin In Ns 1 Gm/200 Ml Bag) 1 gm IV X1 ONE Stop: 03/17/25 00:31 Last Admin: 03/17/25 01:53 Dose: 1 gm Assessment & Plan Plan #GPC bacteremia #Right ankle ulcer #Sacral ulcer Patient has been having progressive decline with significant outpatient follow- up and antibiotic therapy Patient was followed at the wound care center in regards to this wound on her right ankle Documentation states that patient had peripheral angiogram in 2023 that was negative for stenosis Was on broad-spectrum antibiotics with vancomycin and cefepime Discontinued cefepime and continued with vancomycin GPC Positive on March 16 with Staph epidermidis and staph schleiferi which are skin organisms March 18 repeat positive for GPC that is pending speciation Pro-Sid remain negative upon initial presentation Will await speciation If coagulase-negative staph discontinue vancomycin and start doxycycline 100 mg p.o. twice daily Ordered arterial studies to assess for arterial blood flow Recommend wound care and strict glycemic control #Insulin dependent Type 2 diabetes mellitus-poorly controlled #Metabolic acidosis #Electrolyte abnormalities #Hypertension #History of valve disease #Hyperkalemia-resolved #History of depression #Hypothyroidism #Anemia #Iron deficiency - Rest of management as per primary team Plan of care discussed with supervising attending Dr Roxanna Garcia M.D. PGY-3
--- NOTE | 2025-03-22 20:33 | PC.NURSE ---
Pt. blood sugar is 185 and pt has no HS coverage. Notify MD Rashmi MD will put new order.
[2025-03-22] MEDS: ATORVASTATIN CALCIUM 20 MG TABLET PO (20:43)
--- NOTE | 2025-03-22 20:51 | ESCONSULT_ITS ---
RE: DANYLE FRAGOSO : 1950 DATE OF CONSULTATION: 03/22/2025 REFERRING PHYSICIAN: Dr. Aguilera REASON FOR CONSULTATION: Nonhealing ulcer on the right foot. HISTORY OF PRESENT ILLNESS: The patient is a 74-year-old with history of diabetes, controlled adequately with A1c of 7.9. She has hypertension and had been to hyperbaric oxygen therapy for her right leg previously. This did not seem to do much. I do not know if she has had a long course of antibiotics or not. She is a poor historian and speaks primarily Yi. Surgical history includes prior fascial repair. ALLERGIES: NO ANTIBIOTIC ALLERGIES. IMMUNIZATIONS: Last tetanus was years ago. She has had a flu shot and two COVID vaccines and has had pneumococcal vaccine as well. FAMILY HISTORY: Positive for a relative with diabetes and heart disease. Brothers may have diabetes as well. SOCIAL HISTORY: She lives with her sister. She is a lifelong nonsmoker. PHYSICAL EXAMINATION: On exam, the patient is a little hyperesthetic. She has been jumpy. This may account for the positive blood cultures, which have been noted, since the original species of Staph epi, I think we can wait for the blood cultures of the that it might be Staph epi as well. If they pattern layout worker to be a coag neg staph species, I think we can probably hold off on further workup. She does tend to be a little jumpy when they try to poke her for blood cultures. On exam, the patient is sort of hyperesthetic. She reacts to any sort of stimulation of the foot in an aberrant way. She has medical problems are as noted. She is noted to be diabetic and some note suggests the prior angiogram was okay late last year, but I do not have the data on that, so we will just get an arterial Doppler as a precaution. Her relative at the bedside suggests that she is a bit jumpy when her blood cultures were drawn. This verifies my findings on exam and is consistent with her behavior. ASSESSMENT: 1. Diabetes. 2. Nonhealing ulcers of the right foot with impaired pulses noted in the foot, but no jace gangrene. RECOMMENDATIONS: The patient can probably be best served without antibiotics for now. There is no overt indication for them. I will check her procalcitonin tomorrow and note that her procalcitonin was normal on 03/18/2025, so it looks like we are treating primarily elevated white count. I will check on her again on Thursday. If her procalcitonin is negative, she wishes to send her home. I have no objection. You may want to try her on some oral doxycycline for suppression on a long-term basis. DT: 17:41:46 TT: 20:30:00 Ref: [id number] - TID: [id number] MTDD
[2025-03-23] VITALS (9 sets, daily range): BP systolic 136–170; BP diastolic 65–81; PULSE 86–119; RESP 15–19; TEMP 36.1–36.9; O2SAT 95–97
[2025-03-23] MEDS: HYDROmorphone INJ 2 MG/ML VIAL 0.25 MG IVP ×3 (01:37→18:49)
[2025-03-23] MEDS: LEVOTHYROXINE SODIUM 25 MCG TABLET 75 MCG PO (05:22)
[2025-03-23 06:00] LABS: Basophils # (Auto) 0.1 Thou/mm3 (0.0-0.2); Basophils % (Auto) 0 % (0-2.5); Eosinophils % (Auto) 0 % (0-10); Hematocrit 27.8 % (36.0-46.0); Hemoglobin 9.2 g/dL (12.0-16.0); Immature Granulocytes % (Auto) 1 % (0-0); Immature Granulocytes Auto 0.17 Thou/mm3 (0.00-0.00); Lymphocytes # (Auto) 2.2 Thou/mm3 (1.0-4.8); Lymphocytes % (Auto) 16 % (10-50); Mean Corpuscular HGB Conc 33.1 g/dl (31.0-37.0); Mean Corpuscular Hemoglobin 30.4 pg (25.0-35.0); Mean Corpuscular Volume 92 fL (80-100); Monocytes # (Auto) 0.8 Thou/mm3 (0.0-0.8); Monocytes % (Auto) 6 % (0-12); Neutrophils # (Auto) 10.6 Thou/mm3 (1.8-7.7); Neutrophils % (Auto) 77 % (37-80); Nucleated Red Blood Cell % 0 /100 WBC (0); Platelet Count 337 Thou/mm3 (140-440); RDW Standard Deviation 58.9 fL (36.4-46.3); Red Blood Count 3.03 Miln/mm3 (4.00-5.20); White Blood Count 13.9 Thou/mm3 (3.6-11.0)
[2025-03-23 06:20] LABS: Alanine Aminotransferase 17 U/L (10-49); Albumin, Serum 2.8 gm/dL (3.4-4.8); Albumin/Globulin Ratio 1.2 (1.2-2.2); Alkaline Phosphatase 101 U/L (46-116); Anion Gap 8 (7-16); Aspartate Amino Transferase 18 U/L (0-34); BUN/Creatinine Ratio 30 Ratio (12-20); Bilirubin,Total 0.4 mg/dL (0.3-1.2); Blood Urea Nitrogen 12 mg/dL (9-23); Calcium 7.7 mg/dL (8.3-10.6); Calcium (Corrected) 8.7 mg/dL (8.5-10.1); Carbon Dioxide 21.8 mMol/L (20.0-31.0); Chloride 103 mMol/L (98-107); Creatinine (Component) 0.4 mg/dL (0.6-1.3); Estimated Creatinine Clearance 91.7 mL/min (>60); Globulin 2.3 gm/dL (2.3-3.5); Glucose 143 mg/dL (74-106); Magnesium 1.4 mg/dL (1.6-2.6); Osmolality,Calculated 268 (275-295); Potassium 3.9 mMol/L (3.4-5.1); Procalcitonin 1.88 ng/ml (0.0-0.49); Sodium 133 mMol/L (136-145); Total Protein 5.1 gm/dL (5.7-8.2); eGFR > 60 See Note
[2025-03-23 06:28] LABS: ACTH, Plasma* 9 pg/mL (6-50)
[2025-03-23] MEDS: INSULIN GLARGINE (Lantus) 5 UNIT/0.05 ML (PER 5 UNITS) 12 UNIT SC (08:24)
[2025-03-23] MEDS: HEPARIN SOD INJ 5000 UNIT/ML VIAL SC ×2 (08:24→20:28)
[2025-03-23] MEDS: ESCITALOPRAM OXALATE 10 MG TABLET PO (08:25)
[2025-03-23] MEDS: SODIUM BICARBONATE 650 MG TABLET 325 MG PO (08:25)
[2025-03-23] MEDS: amLODIPine BESYLATE 5 MG TABLET 10 MG PO (08:25)
[2025-03-23] MEDS: Silvasorb Gel 45 ML TUBE TOP (08:26)
--- NOTE | 2025-03-23 09:00 | ECHO_ITS ---
Transthoracic Echo Report Ht (in): 62 Wt (lb): 114 Exam Location: Portable Status: Inpatient Pressure Vessel Inspector: AUDIE Fan^^^^ Indications: Procedure Performed: BP: / HR: MEASUREMENTS (Male / Female) Normal Values 2D ECHO LV Diastolic Diameter PLAX 3.6 cm 4.2 - 5.9 / 3.9 - 5.3 cm LV Systolic Diameter PLAX 2.5 cm IVS Diastolic Thickness 0.9 cm 0.6 - 1.0 / 0.6 - 0.9 cm LVPW Diastolic Thickness 0.8 cm 0.6 - 1.0 / 0.6 - 0.9 cm LV Relative Wall Thickness 0.5 LVOT Diameter 1.5 cm Aortic Root Diameter 2.5 cm LA Systolic Diameter LX 2.7 cm 3.0 - 4.0 / 2.7 - 3.8 cm LA Volume Index 18.8 cm?/m? 16 - 28 cm?/m? DOPPLER AV Peak Velocity 151.0 cm/s AV Peak Gradient 9.1 mmHg AV Mean Gradient 6.0 mmHg AV Velocity Time Integral 31.9 cm LVOT Peak Velocity 115.0 cm/s LVOT Peak Gradient 5.3 mmHg LVOT Velocity Time Integral 17.8 cm AV Area Cont Eq vti 1.0 cm? AV Area Cont Eq pk 1.3 cm? MV Area PHT 3.1 cm? Mitral E Point Velocity 64.6 cm/s Mitral A Point Velocity 90.4 cm/s Mitral E to A Ratio 0.7 LV E' Lateral Velocity 6.7 cm/s Mitral E to LV E' Lateral Ratio 9.6 LV E' Septal Velocity 6.8 cm/s Mitral E to LV E' Septal Ratio 9.5 TR Peak Velocity 240.8 cm/s TR Peak Gradient 23.2 mmHg PV Peak Velocity 138.0 cm/s PV Peak Gradient 7.6 mmHg RVOT Peak Velocity 90.2 cm/s FINDINGS Left Ventricle Normal left ventricular size, wall thickness, systolic function with no obvious regional wall motion abnormalities. There is grade I diastolic dysfunction of the left ventricle (impaired relaxation pattern). The left ventricular ejection fraction is normal, estimated at 55-60%. Right Ventricle The right ventricle is normal in size and systolic function. The estimated right ventricular systolic pressure, 25 mmHg. Left Atrium The left atrium is normal by two-dimensional, color flow and Doppler imaging with no structural abnormalities, no thrombus formation present. Right Atrium The right atrium is normal by two-dimensional imaging, color flow and Doppler imaging with no structural abnormalities, no thrombus formation present. Atrial Septum The interatrial septum appears normal with no evidence of a shunt. Aorta The aorta is normal by two-dimensional, color flow and Doppler interrogation. Mitral Valve Trace to mild mitral regurgitation. Mild mitral annular calcification. Aortic Valve Aortic valve sclerosis. Tricuspid Valve There is mild tricuspid valve regurgitation. Pulmonic Valve Trivial pulmonic valve regurgitation. Vessels The pulmonary artery appears normal. The inferior vena cava pulmonary and hepatic veins appear normal. Pericardium The pericardium is normal by two-dimensional imaging. There is no significant pericardial effusion. CONCLUSIONS indication: bacteremia LV appears normal with EF 55-60%. Diastolic Dysfunction I. RV appears normal with RVSP 25 mmHg. Mild MR & MAC AOV sclerosis Mild TR Zia Garcia (Electronically Signed) Final Date: 23 March 2025 11:54
[2025-03-23] MEDS: ceFAZolin/D5W 2 GM IV 2 GM/100 ML BAG IV ×3 (10:33→22:43)
[2025-03-23] MEDS: Furosemide 20 MG TABLET PO (10:33)
[2025-03-23] MEDS: Magnesium Sulfate 2 GM Ivpb 2 GM/50 ML BAG IV (10:33)
[2025-03-23] MEDS: INSULIN LISPRO (AdmeLOG) 1 UNIT/0.01 ML UNIT SC ×2 (12:20→20:28)
--- NOTE | 2025-03-23 12:46 | PC.SS ---
SS received phone call from Christine dacosta and she is requesting [facility] (aka [facility] Iesha from [facility] is aware pt will require a Wound Vac.
--- NOTE | 2025-03-23 15:16 | ESPR_ITS ---
<Statement entered by Chuckie Santana MD - 03/23/25 18:37> I discussed with and supervised the product development intern physician involved in the care of this patient. Patient assessment and plan was discussed with entire medicine team, including my attending. I agree with the assessment and plan as documented by product development intern doctor. Patient care was discussed with my attending physician Dr. Chano Santana, PGY-2 Documentation for date of: 03/23/25 Subjective Subjective Interval history: Patient examined at bedside, complains of weakness. Decreased appetite. Lower extremity foot pain. Vitals stable, Blood sugar well controlled. WBC 14.2, potassium 3.9. Metabolic acidosis bicarb of 21. Continue oral bicarb, repleated magnesium and phosphate. Will continue to hold spironolactone and olmesartan due to patient's hyperkalemia at admission. Continue with amlodipine 10mg daily and started furosemide 20mg daily. Blood cultures from 03/18 grew MSSA bacteremia--stopped vancomycin and started IV cefazolin. Echo is pending, repeating blood cultures pending. Exam Vital Signs Temp Pulse Resp BP Pulse Ox O2 Del Method 97.6 F 100 16 147/70 H 97 Room Air 03/23/25 12:00 03/23/25 12:00 03/23/25 12:00 03/23/25 12:00 03/23/25 12:00 03/23/25 07:42 Narrative Exam General: Elderly female, Awake, ill-appearing HEENT: Normocephalic, atraumatic, mucous membranes dry. Heart: Regular rate and rhythm, no murmurs. Lungs: Clear to auscultation with no wheezing or crackles. Abdomen: Soft, nondistended, nontender, positive bowel sounds. ?No guarding or rebound tenderness. Neurologic: Alert, no gross neurological deficit, and patient able to move all 4 extremities. Extremities: Pitting 2+ edema of the feet, no ankle edema. Right foot is covered in bandage, right maleolous ulcer stage 2-3 Skin: sacral pressure ulcer stage 2, 3-4 inches long Objective Labs 03/24/25 04:44 03/24/25 04:44 Labs: Laboratory Results - last 24 hr 03/17/25 03/23/25 06:14 05:06 WBC 13.9 H RBC 3.03 L Hgb 9.2 L Hct 27.8 L MCV 92 MCH 30.4 MCHC 33.1 RDW Std Deviation 58.9 H Plt Count 337 Neut % (Auto) 77 Lymph % (Auto) 16 [place] % (Auto) 6 Eos % (Auto) 0 Baso % (Auto) 0 Neut # (Auto) 10.6 H Lymph # (Auto) 2.2 [place] # (Auto) 0.8 Eos # (Auto) 0.0 Baso # (Auto) 0.1 Immature Gran # (Auto) 0.17 H Absolute Nucleated RBC 0.00 Immature Gran % 1 H Nucleated RBC % 0 Sodium 133 L Potassium 3.9 Chloride 103 Carbon Dioxide 21.8 Anion Gap 8 BUN 12 Creatinine 0.4 L Estim Creat Clear Calc 91.7 eGFR > 60 BUN/Creatinine Ratio 30 H Glucose 143 H Calculated Osmolality 268 L Calcium 7.7 L Corrected Calcium 8.7 Magnesium 1.4 L Total Bilirubin 0.4 AST 18 ALT 17 Alkaline Phosphatase 101 Total Protein 5.1 L Albumin 2.8 L Globulin 2.3 Albumin/Globulin Ratio 1.2 Procalcitonin 1.88 H ACTH 9 ABG Interpretation ABG results: 03/17/25 03/19/25 00:53 11:07 ABG pH 7.44 ABG pCO2 36 ABG pO2 81 L ABG HCO3 24 ABG O2 Saturation 95 ABG Base Excess 0 VBG pH 7.36 VBG pCO2 32 L VBG pO2 41 VBG Base Excess -6 L Quality Measures Quality Measures VTE prophylaxis Advance care planning discussed with:: patient Assessment & Plan Assessment Current Active Medications: Generic Name Dose Route Start Last Admin Trade Name Freq PRN Reason Stop Dose Admin Acetaminophen 650 mg 03/17/25 00:05 03/21/25 08:38 Acetaminophen 325 Mg Tablet PO 04/16/25 00:04 650 mg Q6H PRN Administration Fever >100.3 or pain 1-3 Amlodipine Besylate 10 mg 03/22/25 09:00 03/23/25 08:25 Amlodipine Besylate 5 Mg Tablet PO 04/21/25 08:59 10 mg QDAY JESSICA Administration Atorvastatin Calcium 20 mg 03/17/25 21:00 03/22/25 20:43 Atorvastatin Calcium 20 Mg Tablet PO 04/16/25 20:59 20 mg HS JESSICA Administration Dextrose 25 ml 03/17/25 00:11 Dextrose 50%-Water Inj 50 Ml Syringe IV 04/16/25 00:10 Q15MIN PRN BG 50-70 responsive npo pt Dextrose 50 ml 03/17/25 00:11 Dextrose 50%-Water Inj 50 Ml Syringe IV 04/16/25 00:10 Q15MIN PRN BG <50 OR BG <70 & pt unresponsive Escitalopram Oxalate 10 mg 03/17/25 09:00 03/23/25 08:25 Escitalopram Oxalate 10 Mg Tablet PO 04/16/25 08:59 10 mg QDAY JESSICA Administration Furosemide 20 mg 03/23/25 09:15 03/23/25 10:33 Furosemide 20 Mg Tablet PO 04/22/25 09:14 20 mg QAM JESSICA Administration Glucagon 1 mg 03/17/25 00:11 Glucagon Inj 1 Mg Vial IM Q15MIN PRN BG <70, and no IV access Heparin Sodium (Porcine) 5,000 unit 03/19/25 21:00 03/23/25 08:24 Heparin Sod Inj 5000 Unit/Ml Vial SC 04/02/25 20:59 5,000 unit Q12HR JESSICA Administration Hydralazine HCl 10 mg 03/17/25 00:13 Hydralazine Inj 20 Mg/Ml Vial IV 04/16/25 01:59 Q2HR PRN SBP>180 Hydromorphone HCl 0.25 mg 03/22/25 15:31 03/23/25 14:42 Hydromorphone Inj 2 Mg/Ml Vial IVP 03/27/25 15:30 0.25 mg Q4HR PRN Administration PAIN SCALE 4-10(Mod-Sev Cefazolin Sodium 2 gm in 100 mls @ 100 mls/hr 03/23/25 09:05 03/23/25 14:32 Ancef 2gm Ivpb IV 03/30/25 09:04 100 mls/hr Q8HR JESSICA Administration Insulin Glargine 12 unit 03/17/25 09:00 03/23/25 08:24 Insulin Glargine (Lantus) 5 Unit/0.05 Ml (Per 5 Units) SC 04/16/25 08:59 12 unit QDAY JESSICA Administration Insulin Human Lispro 0 unit 03/22/25 21:00 03/23/25 12:20 Insulin Lispro (Admelog) 1 Unit/0.01 Ml Unit SC 04/21/25 20:59 2 unit ACHS JESSICA Administration Protocol Levothyroxine Sodium 75 mcg 03/17/25 06:00 03/23/25 05:22 Levothyroxine Sodium 25 Mcg Tablet PO 04/16/25 05:59 75 mcg ACBR JESSICA Administration Ondansetron HCl 4 mg 03/17/25 00:20 Ondansetron Inj 2 Mg/Ml Inj 2 Ml IV 04/16/25 00:19 Q6HR PRN NAUSEA OR VOMITING Protocol Polyethylene Glycol 17 gm 03/20/25 09:00 03/23/25 08:26 Polyethylene Glycol 17 Gm Packet PO 04/19/25 08:59 Not Given QDAY JESSICA Sennosides 2 tab 03/20/25 09:00 03/23/25 08:26 Senna Tablet PO 04/19/25 08:59 Not Given QDAY JESSICA Protocol Sodium Bicarbonate 325 mg 03/20/25 14:00 03/23/25 08:25 Sodium Bicarbonate 650 Mg Tablet PO 04/19/25 13:59 325 mg DAILY JESSICA Administration Plan Katharine Goldberg is a 74-year-old female with a previous medical history of hypertension, hypothyroidism, insulin-dependent diabetes mellitus, osteoporosis, hemorroids, lateral ankle chronic wound who was brought to the ED due to general weakness, nausea and vomiting. Patient is going to be admitted for soft tissue infection work up and management. #MSSA bacteremia #Soft tissue infection #Right lateral malleolus ulcer #Diabetic foot ulcer qSOFA score is 0. Patient is generally weak and has 2 potential sources of infection - pressure sores and chronic ankle wound. She has also chronic leukocytosis and has received multiple courses of antibiotics before. 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 Hepatitis panel was negative, cryglobulin was negative. She also underwent peripheral angiogram in 2023 which was negative for arterial stenosis/ arterial disease. Ankle xray No jace cortical bone destruction. MRI negative for osteomyelitis. MRSA nares negative. Blood cultures from 03/16 returned positive GPC 2/2 Blood cultures from 03/18 grew MSSA bacteremia - stopped vancomycin (03/17/25-03/23) & cefepime 2g q8hr 03/17/25-03/23 -started IV cefazolin 2g TID (03/23-) - wound care - echo pending - repeat blood cultures pending - IV dilaudid 0.25mg q4hr PRN #Insulin dependent Type 2 diabetes mellitus-poorly controlled Patient is on Tresiba 12 U qday with sliding scale insulin and metformin. A1c 7.9%. Plan: - Glargine 12 units qday - Sliding scale insulin with fingerstick blood sugar checks - hypoglycemia protocol - Lyrica for neuropathic pain #Metabolic acidosis #Electrolyte abnormalities Unknown cause of metabolic acidosis. Less likely DKA blood sugars well- controlled. Most recent lactic acid within normal limits. No recent history of diarrhea. ?sodium bicarb 325 mg daily ? Replete electrolytes as needed #Hypertension #History of valve disease Patient is following with Dr. Phelan. She has multiple blood pressure medication on board, including nicardipine. In the ED, her BP was ranging from 77/56 to the SBP in the 170s. Plan: - amlodipine 10 mg qday -Furosemide 20mg daily - hydralazine 10 mg IV prn q2hr if SBP>180 - consider consulting cardiology if BP is not controlled - home olmesartan and spironolactone on hold due hyperkalemia #Hyperkalemia-resolved Most likely side effect of spironolactone and olmesartan. Plan: - spironolactone and olmesartan on hold - monitor daily CMP #History of depression Plan: - resumed home lexapro #Hypothyroidism Plan: - resumed home levothyroxine 75mcg #Anemia #Iron deficiency Patient's hemoglobin 6.6, possible etiology of multifactorial anemia, does have significant iron deficiency According to chart review, appears chronic, most likely in the setting of chronic disease. Iron panel shows iron 8 mcg/dL, TIBC 165, iron saturation 4% Patient denies any blood in stool Plan: - FOBT pending - transfuse of Hgb<7 - Will consider discharging on iron tablets Health maintenance: FEN: cardiac, carbohydrate consistent DVT prophylaxis: heparin sc GI prophylaxis: none Dispo: IV antibiotics, echo pending CODE STATUS: DNR (patient declined resuscitation in case of cardiac arrest, witnessed by the daughter and Dr. Aguilera) The patient's management plan was discussed with my attending physician Dr. Madden. Martha Johnson, PGY-1 Attending Provider Attestation/Addendum Patient has MSSA bacteremia started on IV cefazolin. The patient is afebrile. Blood pressure stable. Echocardiogram is pending.
[2025-03-23] MEDS: ATORVASTATIN CALCIUM 20 MG TABLET PO (20:28)
[2025-03-24] VITALS (8 sets, daily range): BP systolic 145–177; BP diastolic 68–79; PULSE 80–98; RESP 16–18; TEMP 36.1–36.8; O2SAT 95–100; BMI 21.0; BMI 12.0
[2025-03-24] MEDS: HYDROmorphone INJ 2 MG/ML VIAL 0.25 MG IVP ×5 (00:01→18:31)
[2025-03-24] MEDS: LEVOTHYROXINE SODIUM 25 MCG TABLET 75 MCG PO (05:24)
[2025-03-24] MEDS: ceFAZolin/D5W 2 GM IV 2 GM/100 ML BAG IV ×3 (05:24→21:29)
[2025-03-24 06:18] LABS: Basophils % (Auto) 0 % (0-2.5); Eosinophils % (Auto) 0 % (0-10); Immature Granulocytes % (Auto) 2 % (0-0); Lymphocytes # (Auto) 1.9 Thou/mm3 (1.0-4.8); Lymphocytes % (Auto) 17 % (10-50); Mean Corpuscular Hemoglobin 30.8 pg (25.0-35.0); Mean Corpuscular Volume 91 fL (80-100); Monocytes # (Auto) 0.7 Thou/mm3 (0.0-0.8); Monocytes % (Auto) 6 % (0-12); Neutrophils # (Auto) 8.6 Thou/mm3 (1.8-7.7); Neutrophils % (Auto) 75 % (37-80); Nucleated Red Blood Cell % 0 /100 WBC (0); Platelet Count 324 Thou/mm3 (140-440); RDW Standard Deviation 57.6 fL (36.4-46.3); Red Blood Count 2.76 Miln/mm3 (4.00-5.20); White Blood Count 11.4 Thou/mm3 (3.6-11.0)
[2025-03-24 06:19] LABS: Hemoglobin 8.5 g/dL (12.0-16.0)
[2025-03-24 06:32] LABS: Alanine Aminotransferase 11 U/L (10-49); Albumin, Serum 2.6 gm/dL (3.4-4.8); Albumin/Globulin Ratio 1.2 (1.2-2.2); Alkaline Phosphatase 104 U/L (46-116); Anion Gap 8 (7-16); Aspartate Amino Transferase 19 U/L (0-34); BUN/Creatinine Ratio 24 Ratio (12-20); Bilirubin,Total 0.3 mg/dL (0.3-1.2); Blood Urea Nitrogen 12 mg/dL (9-23); Calcium 7.3 mg/dL (8.3-10.6); Calcium (Corrected) 8.4 mg/dL (8.5-10.1); Carbon Dioxide 23.8 mMol/L (20.0-31.0); Chloride 99 mMol/L (98-107); Creatinine (Component) 0.5 mg/dL (0.6-1.3); Estimated Creatinine Clearance 73.4 mL/min (>60); Globulin 2.2 gm/dL (2.3-3.5); Glucose 113 mg/dL (74-106); Magnesium 1.7 mg/dL (1.6-2.6); Osmolality,Calculated 263 (275-295); Potassium 3.3 mMol/L (3.4-5.1); Sodium 131 mMol/L (136-145); Total Protein 4.8 gm/dL (5.7-8.2); eGFR > 60 See Note
[2025-03-24] MEDS: INSULIN GLARGINE (Lantus) 5 UNIT/0.05 ML (PER 5 UNITS) 12 UNIT SC (08:38)
[2025-03-24] MEDS: HEPARIN SOD INJ 5000 UNIT/ML VIAL SC ×2 (08:40→21:29)
[2025-03-24] MEDS: amLODIPine BESYLATE 5 MG TABLET 10 MG PO (08:40)
[2025-03-24] MEDS: Silvasorb Gel 45 ML TUBE TOP (08:41)
[2025-03-24] MEDS: SODIUM BICARBONATE 650 MG TABLET 325 MG PO (08:41)
[2025-03-24] MEDS: ESCITALOPRAM OXALATE 10 MG TABLET PO (08:41)
[2025-03-24] MEDS: Furosemide 20 MG TABLET PO (08:41)
[2025-03-24] MEDS: POTASSIUM CHLORIDE 20 mEq TABCR 40 MEQ PO (09:36)
--- NOTE | 2025-03-24 09:56 | PC.SS ---
Follow up note: Pt will require wound vac at SNF and Iesha torres [facility] is aware. I.D recommendations pending. Blood cultures pending. ECHO pending.
[2025-03-24 10:15] LABS: Vancomycin,Trough 10.3 mcg/mL (5.0-10.0)
--- NOTE | 2025-03-24 10:21 | PD.IDPROG ---
Subjective Subjective Interval history: bc on repeat with gpc. will get some more and an echo as f/u bc with staph aureus bianca 0.5 noted to ox Exam Vital Signs Temp Pulse Resp BP Pulse Ox O2 Del Method 97.2 F 94 18 158/71 H 97 Room Air 03/24/25 08:00 03/24/25 08:41 03/24/25 08:00 03/24/25 08:41 03/24/25 08:00 03/24/25 08:00 Narrative Exam limited eval. resident approached me for a rx plan but with pos bc, can not yet let her go. agree with anc for now. Objective - Internal Medicine Labs 03/24/25 04:44 03/24/25 04:44 Labs: Laboratory Results - last 24 hr 03/24/25 03/24/25 04:44 09:07 WBC 11.4 H RBC 2.76 L Hgb 8.5 L Hct 25.0 L MCV 91 MCH 30.8 MCHC 34.0 RDW Std Deviation 57.6 H Plt Count 324 Neut % (Auto) 75 Lymph % (Auto) 17 [place] % (Auto) 6 Eos % (Auto) 0 Baso % (Auto) 0 Neut # (Auto) 8.6 H Lymph # (Auto) 1.9 [place] # (Auto) 0.7 Eos # (Auto) 0.0 Baso # (Auto) 0.0 Immature Gran # (Auto) 0.20 H Absolute Nucleated RBC 0.00 Immature Gran % 2 H Nucleated RBC % 0 Sodium 131 L Potassium 3.3 L D Chloride 99 Carbon Dioxide 23.8 Anion Gap 8 BUN 12 Creatinine 0.5 L Estim Creat Clear Calc 73.4 eGFR > 60 BUN/Creatinine Ratio 24 H Glucose 113 H Calculated Osmolality 263 L Calcium 7.3 L Corrected Calcium 8.4 L Magnesium 1.7 Total Bilirubin 0.3 AST 19 ALT 11 Alkaline Phosphatase 104 Total Protein 4.8 L Albumin 2.6 L Globulin 2.2 L Albumin/Globulin Ratio 1.2 Vancomycin Trough 10.3 H ABG Interpretation ABG results: 03/17/25 03/19/25 00:53 11:07 ABG pH 7.44 ABG pCO2 36 ABG pO2 81 L ABG HCO3 24 ABG O2 Saturation 95 ABG Base Excess 0 VBG pH 7.36 VBG pCO2 32 L VBG pO2 41 VBG Base Excess -6 L Assessment & Plan A&P Narrative Bacteremia with different coag neg species in bc done at nearly the same time and a normal procal with f/u procal abn and bc with staph aureus other problems as noted will check in again on Thursday. if f/u bc neg and echo neg, then can opine on rx duration at that time. with dopplers abnormal. then f/u with vascular. control dm too please. a1c's noted on arrival pvd. see arterial doppler Time Spent With Patient Time: Total time spent is greater than 50% in coordination of care (as documented) at patient's floor/unit and/or counseling patient:
[2025-03-24] MEDS: INSULIN LISPRO (AdmeLOG) 1 UNIT/0.01 ML UNIT SC ×2 (12:14→17:14)
[2025-03-24] MEDS: ACETAMINOPHEN 325 MG TABLET 650 MG PO (15:08)
--- NOTE | 2025-03-24 15:10 | PD.RESPRO ---
Documentation for date of: 03/24/25 Subjective Subjective Interval history: No significant overnight events. White blood cells downtrending to 11.4. Patient's daughter called and had concerns regarding patient requesting Dilaudid for pain. Nurse was advised to give Tylenol between Dilaudid doses. Patient's daughter was called and updated on patient's condition, questions regarding echocardiogram were answered. Echocardiogram results indicated no signs of vegetation per Dr. Garcia reading. ID Dr Mcknight does not want patient to be discharged until Thursday once blood culture results are in. We will continue cefazolin for now. Exam Vital Signs Temp Pulse Resp BP Pulse Ox O2 Del Method 97.3 F 97 18 153/73 H 100 Room Air 03/24/25 12:00 03/24/25 12:00 03/24/25 12:00 03/24/25 12:00 03/24/25 12:00 03/24/25 12:00 Narrative Exam General: Elderly female, Awake, ill-appearing HEENT: Normocephalic, atraumatic, mucous membranes dry. Heart: Regular rate and rhythm, no murmurs. Lungs: Clear to auscultation with no wheezing or crackles. Abdomen: Soft, nondistended, nontender, positive bowel sounds. ?No guarding or rebound tenderness. Neurologic: Alert, no gross neurological deficit, and patient able to move all 4 extremities. Extremities: Pitting 2+ edema of the feet, no ankle edema. Right foot is covered in bandage, right maleolous ulcer stage 2-3 Skin: sacral pressure ulcer stage 2, 3-4 inches long Objective Labs 03/25/25 05:00 03/25/25 05:00 Labs: Laboratory Results - last 24 hr 03/24/25 03/24/25 04:44 09:07 WBC 11.4 H RBC 2.76 L Hgb 8.5 L Hct 25.0 L MCV 91 MCH 30.8 MCHC 34.0 RDW Std Deviation 57.6 H Plt Count 324 Neut % (Auto) 75 Lymph % (Auto) 17 [place] % (Auto) 6 Eos % (Auto) 0 Baso % (Auto) 0 Neut # (Auto) 8.6 H Lymph # (Auto) 1.9 [place] # (Auto) 0.7 Eos # (Auto) 0.0 Baso # (Auto) 0.0 Immature Gran # (Auto) 0.20 H Absolute Nucleated RBC 0.00 Immature Gran % 2 H Nucleated RBC % 0 Sodium 131 L Potassium 3.3 L D Chloride 99 Carbon Dioxide 23.8 Anion Gap 8 BUN 12 Creatinine 0.5 L Estim Creat Clear Calc 73.4 eGFR > 60 BUN/Creatinine Ratio 24 H Glucose 113 H Calculated Osmolality 263 L Calcium 7.3 L Corrected Calcium 8.4 L Magnesium 1.7 Total Bilirubin 0.3 AST 19 ALT 11 Alkaline Phosphatase 104 Total Protein 4.8 L Albumin 2.6 L Globulin 2.2 L Albumin/Globulin Ratio 1.2 Vancomycin Trough 10.3 H ABG Interpretation ABG results: 03/17/25 03/19/25 00:53 11:07 ABG pH 7.44 ABG pCO2 36 ABG pO2 81 L ABG HCO3 24 ABG O2 Saturation 95 ABG Base Excess 0 VBG pH 7.36 VBG pCO2 32 L VBG pO2 41 VBG Base Excess -6 L Quality Measures Quality Measures VTE prophylaxis Advance care planning discussed with:: other Assessment & Plan Assessment Current Active Medications: Generic Name Dose Route Start Last Admin Trade Name Freq PRN Reason Stop Dose Admin Acetaminophen 650 mg 03/24/25 14:49 03/24/25 15:08 Acetaminophen 325 Mg Tablet PO 04/16/25 00:04 650 mg Q6H PRN Administration Fever >100.3 or Pain 1-3 Amlodipine Besylate 10 mg 03/22/25 09:00 03/24/25 08:40 Amlodipine Besylate 5 Mg Tablet PO 04/21/25 08:59 10 mg QDAY JESSICA Administration Atorvastatin Calcium 20 mg 03/17/25 21:00 03/23/25 20:28 Atorvastatin Calcium 20 Mg Tablet PO 04/16/25 20:59 20 mg HS JESSICA Administration Dextrose 25 ml 03/17/25 00:11 Dextrose 50%-Water Inj 50 Ml Syringe IV 04/16/25 00:10 Q15MIN PRN BG 50-70 responsive npo pt Dextrose 50 ml 03/17/25 00:11 Dextrose 50%-Water Inj 50 Ml Syringe IV 04/16/25 00:10 Q15MIN PRN BG <50 OR BG <70 & pt unresponsive Escitalopram Oxalate 10 mg 03/17/25 09:00 03/24/25 08:41 Escitalopram Oxalate 10 Mg Tablet PO 04/16/25 08:59 10 mg QDAY JESSICA Administration Furosemide 20 mg 03/23/25 09:15 03/24/25 08:41 Furosemide 20 Mg Tablet PO 04/22/25 09:14 20 mg QAM JESSICA Administration Glucagon 1 mg 03/17/25 00:11 Glucagon Inj 1 Mg Vial IM Q15MIN PRN BG <70, and no IV access Heparin Sodium (Porcine) 5,000 unit 03/19/25 21:00 03/24/25 08:40 Heparin Sod Inj 5000 Unit/Ml Vial SC 04/02/25 20:59 5,000 unit Q12HR JESSICA Administration Hydralazine HCl 10 mg 03/17/25 00:13 Hydralazine Inj 20 Mg/Ml Vial IV 04/16/25 01:59 Q2HR PRN SBP>180 Hydromorphone HCl 0.25 mg 03/22/25 15:31 03/24/25 13:40 Hydromorphone Inj 2 Mg/Ml Vial IVP 03/27/25 15:30 0.25 mg Q4HR PRN Administration PAIN SCALE 4-10(Mod-Sev Cefazolin Sodium 2 gm in 100 mls @ 100 mls/hr 03/23/25 09:05 03/24/25 13:40 Ancef 2gm Ivpb IV 03/30/25 09:04 100 mls/hr Q8HR JESSICA Administration Insulin Glargine 12 unit 03/17/25 09:00 03/24/25 08:38 Insulin Glargine (Lantus) 5 Unit/0.05 Ml (Per 5 Units) SC 04/16/25 08:59 12 unit QDAY JESSICA Administration Insulin Human Lispro 0 unit 03/22/25 21:00 03/24/25 12:14 Insulin Lispro (Admelog) 1 Unit/0.01 Ml Unit SC 04/21/25 20:59 2 unit ACHS JESSICA Administration Protocol Levothyroxine Sodium 75 mcg 03/17/25 06:00 03/24/25 05:24 Levothyroxine Sodium 25 Mcg Tablet PO 04/16/25 05:59 75 mcg ACBR JESSICA Administration Ondansetron HCl 4 mg 03/17/25 00:20 Ondansetron Inj 2 Mg/Ml Inj 2 Ml IV 04/16/25 00:19 Q6HR PRN NAUSEA OR VOMITING Protocol Polyethylene Glycol 17 gm 03/20/25 09:00 04/25/25 08:41 Polyethylene Glycol 17 Gm Packet PO 04/19/25 08:59 Not Given QDAY JESSICA Sennosides 2 tab 03/20/25 09:00 03/24/25 08:41 Senna Tablet PO 04/19/25 08:59 Not Given QDAY JESSICA Protocol Sodium Bicarbonate 325 mg 03/20/25 14:00 03/24/25 08:41 Sodium Bicarbonate 650 Mg Tablet PO 04/19/25 13:59 325 mg DAILY JESSICA Administration Plan Katharine Goldberg is a 74-year-old female with a previous medical history of hypertension, hypothyroidism, insulin-dependent diabetes mellitus, osteoporosis, hemorroids, lateral ankle chronic wound who was brought to the ED due to general weakness, nausea and vomiting. Patient is going to be admitted for soft tissue infection work up and management. #MSSA bacteremia #Soft tissue infection #Right lateral malleolus ulcer #Diabetic foot ulcer qSOFA score is 0. Patient is generally weak and has 2 potential sources of infection - pressure sores and chronic ankle wound. She has also chronic leukocytosis and has received multiple courses of antibiotics before. 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 Hepatitis panel was negative, cryglobulin was negative. She also underwent peripheral angiogram in 2023 which was negative for arterial stenosis/ arterial disease. Ankle xray No jace cortical bone destruction. MRI negative for osteomyelitis. MRSA nares negative. Blood cultures from 03/16 returned positive GPC 2/2 Blood cultures from 03/18 grew bottle #1 MSSA bacteremia and bottle #2 GPC (pending final speciation) - stopped vancomycin (03/17/25-03/23) & cefepime 2g q8hr 03/17/25-03/23 -started IV cefazolin 2g TID (03/23-) - wound care - echo pending - repeat blood cultures pending - IV dilaudid 0.25mg q4hr PRN #Insulin dependent Type 2 diabetes mellitus-poorly controlled Patient is on Tresiba 12 U qday with sliding scale insulin and metformin. A1c 7.9%. Plan: - Glargine 12 units qday - Sliding scale insulin with fingerstick blood sugar checks - hypoglycemia protocol - Lyrica for neuropathic pain #Metabolic acidosis #Electrolyte abnormalities Unknown cause of metabolic acidosis. Less likely DKA blood sugars well-controlled. Most recent lactic acid within normal limits. No recent history of diarrhea. ?sodium bicarb 325 mg daily ? Replete electrolytes as needed #Hypertension #History of valve disease Patient is following with Dr. Phelan. She has multiple blood pressure medication on board, including nicardipine. In the ED, her BP was ranging from 77/56 to the SBP in the 170s. Plan: - amlodipine 10 mg qday -Furosemide 20mg daily - hydralazine 10 mg IV prn q2hr if SBP>180 - consider consulting cardiology if BP is not controlled - home olmesartan and spironolactone on hold due hyperkalemia #Hyperkalemia-resolved Most likely side effect of spironolactone and olmesartan. Plan: - spironolactone and olmesartan on hold - monitor daily CMP #History of depression Plan: - resumed home lexapro #Hypothyroidism Plan: - resumed home levothyroxine 75mcg #Anemia #Iron deficiency Patient's hemoglobin 6.6, possible etiology of multifactorial anemia, does have significant iron deficiency According to chart review, appears chronic, most likely in the setting of chronic disease. Iron panel shows iron 8 mcg/dL, TIBC 165, iron saturation 4% Patient denies any blood in stool Plan: - FOBT pending - transfuse of Hgb<7 - Will consider discharging on iron tablets Health maintenance: FEN: cardiac, carbohydrate consistent DVT prophylaxis: heparin sc GI prophylaxis: none Dispo: IV antibiotics, echo pending CODE STATUS: DNR (patient declined resuscitation in case of cardiac arrest, witnessed by the daughter and Dr. Aguilera) The patient's management plan was discussed with my attending physician Dr. Madden. Chuckie Santana, PGY-2 Attending Provider Attestation/Addendum 74-year-old female patient with diabetic foot ulcer, MSSA bacteremia. Patient has history of valvular disease. Echocardiogram reported to be negative for vegetation. The patient is very weak. He has iron deficiency anemia, he has history of depression. Continue current management.
[2025-03-24] MEDS: ATORVASTATIN CALCIUM 20 MG TABLET PO (21:29)
[2025-03-25] VITALS (9 sets, daily range): BP systolic 127–160; BP diastolic 64–88; PULSE 74–103; RESP 16–20; TEMP 36.1; O2SAT 94–99
[2025-03-25] MEDS: HYDROmorphone INJ 2 MG/ML VIAL 0.25 MG IVP ×5 (00:20→19:06)
[2025-03-25] MEDS: LEVOTHYROXINE SODIUM 25 MCG TABLET 75 MCG PO (05:34)
[2025-03-25 06:10] LABS: Basophils # (Auto) 0.1 Thou/mm3 (0.0-0.2); Basophils % (Auto) 1 % (0-2.5); Eosinophils % (Auto) 0 % (0-10); Hematocrit 25.8 % (36.0-46.0); Immature Granulocytes % (Auto) 2 % (0-0); Lymphocytes # (Auto) 1.8 Thou/mm3 (1.0-4.8); Lymphocytes % (Auto) 16 % (10-50); Mean Corpuscular HGB Conc 32.9 g/dl (31.0-37.0); Mean Corpuscular Hemoglobin 29.9 pg (25.0-35.0); Mean Corpuscular Volume 91 fL (80-100); Monocytes # (Auto) 0.6 Thou/mm3 (0.0-0.8); Monocytes % (Auto) 5 % (0-12); Neutrophils # (Auto) 8.9 Thou/mm3 (1.8-7.7); Neutrophils % (Auto) 77 % (37-80); Nucleated Red Blood Cell # 0.02 Thou/mm3 (0.00-0.00); Nucleated Red Blood Cell % 0 /100 WBC (0); Platelet Count 379 Thou/mm3 (140-440); RDW Standard Deviation 55.8 fL (36.4-46.3); Red Blood Count 2.84 Miln/mm3 (4.00-5.20); White Blood Count 11.6 Thou/mm3 (3.6-11.0)
[2025-03-25] MEDS: ceFAZolin/D5W 2 GM IV 2 GM/100 ML BAG IV ×3 (06:18→21:48)
[2025-03-25 06:27] LABS: Alanine Aminotransferase < 7 U/L (10-49); Albumin, Serum 2.8 gm/dL (3.4-4.8); Albumin/Globulin Ratio 1.2 (1.2-2.2); Alkaline Phosphatase 115 U/L (46-116); Anion Gap 7 (7-16); Aspartate Amino Transferase 21 U/L (0-34); BUN/Creatinine Ratio 28 Ratio (12-20); Bilirubin,Total 0.3 mg/dL (0.3-1.2); Blood Urea Nitrogen 14 mg/dL (9-23); Calcium 7.4 mg/dL (8.3-10.6); Calcium (Corrected) 8.4 mg/dL (8.5-10.1); Carbon Dioxide 23.8 mMol/L (20.0-31.0); Chloride 93 mMol/L (98-107); Creatinine (Component) 0.5 mg/dL (0.6-1.3); Estimated Creatinine Clearance 73.4 mL/min (>60); Globulin 2.3 gm/dL (2.3-3.5); Glucose 143 mg/dL (74-106); Magnesium 1.6 mg/dL (1.6-2.6); Osmolality,Calculated 252 (275-295); Potassium 4.2 mMol/L (3.4-5.1); Sodium 124 mMol/L (136-145); Total Protein 5.1 gm/dL (5.7-8.2); eGFR > 60 See Note
[2025-03-25 06:47] LABS: Hemoglobin 8.5 g/dL (12.0-16.0)
[2025-03-25] MEDS: INSULIN LISPRO (AdmeLOG) 1 UNIT/0.01 ML UNIT SC (07:38)
[2025-03-25] MEDS: SODIUM BICARBONATE 650 MG TABLET 325 MG PO (08:25)
[2025-03-25] MEDS: INSULIN GLARGINE (Lantus) 5 UNIT/0.05 ML (PER 5 UNITS) 12 UNIT SC (08:25)
[2025-03-25] MEDS: HEPARIN SOD INJ 5000 UNIT/ML VIAL SC ×2 (08:25→20:43)
[2025-03-25] MEDS: amLODIPine BESYLATE 5 MG TABLET 10 MG PO (08:26)
[2025-03-25] MEDS: ESCITALOPRAM OXALATE 10 MG TABLET PO (08:26)
[2025-03-25] MEDS: Furosemide 20 MG TABLET PO (08:26)
[2025-03-25] MEDS: Silvasorb Gel 45 ML TUBE TOP (08:27)
--- NOTE | 2025-03-25 16:27 | ESPR_ITS ---
<Statement entered by Chuckie Santana MD - 03/26/25 10:55> I discussed with and supervised the international student counselor physician involved in the care of this patient. Patient assessment and plan was discussed with entire medicine team, including my attending. I agree with the assessment and plan as documented by international student counselor doctor. Patient care was discussed with my attending physician Dr. Chano Santana, PGY-2 Documentation for date of: 03/25/25 Subjective Subjective Interval history: Patient examined at bedside, complains of weakness. Lower extremity foot pain. Vitals stable, Blood sugar well controlled. WBC 11.6, potassium 4.2. Metabolic acidosis improving with bicarb of 23. Continue oral bicarb. Will continue to hold spironolactone and olmesartan due to patient's hyperkalemia at admission. Continue with amlodipine 10mg daily and started Coreg 3.125BID Continue IV cefazolin for MSSA bacteremia. Repeat blood cultures pending. Final ID recs pending. Exam Vital Signs Temp Pulse Resp BP Pulse Ox O2 Del Method 97 F 102 H 20 127/67 98 Room Air 03/25/25 12:00 03/25/25 12:00 03/25/25 12:00 03/25/25 12:00 03/25/25 12:00 03/25/25 12:00 Narrative Exam General: Elderly female, Awake, ill-appearing HEENT: Normocephalic, atraumatic, mucous membranes dry. Heart: Regular rate and rhythm, no murmurs. Lungs: Clear to auscultation with no wheezing or crackles. Abdomen: Soft, nondistended, nontender, positive bowel sounds. ?No guarding or rebound tenderness. Neurologic: Alert, no gross neurological deficit, and patient able to move all 4 extremities. Extremities: Pitting 2+ edema of the feet, no ankle edema. Right foot is covered in bandage, right maleolous ulcer stage 2-3 Skin: sacral pressure ulcer stage 2, 3-4 inches long Objective Labs 03/26/25 05:20 03/26/25 05:20 Labs: Laboratory Results - last 24 hr 03/25/25 05:00 WBC 11.6 H RBC 2.84 L Hgb 8.5 L Hct 25.8 L MCV 91 MCH 29.9 MCHC 32.9 RDW Std Deviation 55.8 H Plt Count 379 D Neut % (Auto) 77 Lymph % (Auto) 16 [place] % (Auto) 5 Eos % (Auto) 0 Baso % (Auto) 1 Neut # (Auto) 8.9 H Lymph # (Auto) 1.8 [place] # (Auto) 0.6 Eos # (Auto) 0.0 Baso # (Auto) 0.1 Immature Gran # (Auto) 0.20 H Absolute Nucleated RBC 0.02 H Immature Gran % 2 H Nucleated RBC % 0 Sodium 124 L Potassium 4.2 D Chloride 93 L Carbon Dioxide 23.8 Anion Gap 7 BUN 14 Creatinine 0.5 L Estim Creat Clear Calc 73.4 eGFR > 60 BUN/Creatinine Ratio 28 H Glucose 143 H Calculated Osmolality 252 L Calcium 7.4 L Corrected Calcium 8.4 L Magnesium 1.6 Total Bilirubin 0.3 AST 21 ALT < 7 L Alkaline Phosphatase 115 Total Protein 5.1 L Albumin 2.8 L Globulin 2.3 Albumin/Globulin Ratio 1.2 ABG Interpretation ABG results: 03/17/25 03/19/25 00:53 11:07 ABG pH 7.44 ABG pCO2 36 ABG pO2 81 L ABG HCO3 24 ABG O2 Saturation 95 ABG Base Excess 0 VBG pH 7.36 VBG pCO2 32 L VBG pO2 41 VBG Base Excess -6 L Quality Measures Quality Measures VTE prophylaxis Advance care planning discussed with:: child Assessment & Plan Assessment Current Active Medications: Generic Name Dose Route Start Last Admin Trade Name Freq PRN Reason Stop Dose Admin Acetaminophen 650 mg 03/24/25 14:49 03/24/25 15:08 Acetaminophen 325 Mg Tablet PO 04/16/25 00:04 650 mg Q6H PRN Administration Fever >100.3 or Pain 1-3 Amlodipine Besylate 10 mg 03/22/25 09:00 03/25/25 08:26 Amlodipine Besylate 5 Mg Tablet PO 04/21/25 08:59 10 mg QDAY JESSICA Administration Atorvastatin Calcium 20 mg 03/17/25 21:00 03/24/25 21:29 Atorvastatin Calcium 20 Mg Tablet PO 04/16/25 20:59 20 mg HS JESSICA Administration Carvedilol 3.125 mg 03/25/25 17:30 Carvedilol 3.125 Mg Tablet PO 04/24/25 17:29 BIDWM JESSICA Dextrose 25 ml 03/17/25 00:11 Dextrose 50%-Water Inj 50 Ml Syringe IV 04/16/25 00:10 Q15MIN PRN BG 50-70 responsive npo pt Dextrose 50 ml 03/17/25 00:11 Dextrose 50%-Water Inj 50 Ml Syringe IV 04/16/25 00:10 Q15MIN PRN BG <50 OR BG <70 & pt unresponsive Escitalopram Oxalate 10 mg 03/17/25 09:00 03/25/25 08:26 Escitalopram Oxalate 10 Mg Tablet PO 04/16/25 08:59 10 mg QDAY JESSICA Administration Glucagon 1 mg 03/17/25 00:11 Glucagon Inj 1 Mg Vial IM Q15MIN PRN BG <70, and no IV access Heparin Sodium (Porcine) 5,000 unit 03/19/25 21:00 03/25/25 08:25 Heparin Sod Inj 5000 Unit/Ml Vial SC 04/02/25 20:59 5,000 unit Q12HR JESSICA Administration Hydralazine HCl 10 mg 03/17/25 00:13 Hydralazine Inj 20 Mg/Ml Vial IV 04/16/25 01:59 Q2HR PRN SBP>180 Hydromorphone HCl 0.25 mg 03/22/25 15:31 03/25/25 14:55 Hydromorphone Inj 2 Mg/Ml Vial IVP 03/27/25 15:30 0.25 mg Q4HR PRN Administration PAIN SCALE 4-10(Mod-Sev Cefazolin Sodium 2 gm in 100 mls @ 100 mls/hr 03/23/25 09:05 03/25/25 13:51 Ancef 2gm Ivpb IV 03/30/25 09:04 100 mls/hr Q8HR JESSICA Administration Insulin Glargine 12 unit 03/17/25 09:00 03/25/25 08:25 Insulin Glargine (Lantus) 5 Unit/0.05 Ml (Per 5 Units) SC 04/16/25 08:59 12 unit QDAY JESSICA Administration Insulin Human Lispro 0 unit 03/22/25 21:00 03/25/25 12:05 Insulin Lispro (Admelog) 1 Unit/0.01 Ml Unit SC 04/21/25 20:59 Not Given ACHS [facility] Protocol Levothyroxine Sodium 75 mcg 03/17/25 06:00 03/25/25 05:34 Levothyroxine Sodium 25 Mcg Tablet PO 05/18/25 05:59 75 mcg ACBR JESSICA Administration Ondansetron HCl 4 mg 03/17/25 00:20 Ondansetron Inj 2 Mg/Ml Inj 2 Ml IV 04/16/25 00:19 Q6HR PRN NAUSEA OR VOMITING Protocol Polyethylene Glycol 17 gm 03/20/25 09:00 03/25/25 08:27 Polyethylene Glycol 17 Gm Packet PO 04/19/25 08:59 Not Given QDAY JESSICA Sennosides 2 tab 03/20/25 09:00 03/25/25 08:27 Senna Tablet PO 04/19/25 08:59 Not Given QDAY JESSICA Protocol Sodium Bicarbonate 325 mg 03/20/25 14:00 03/25/25 08:25 Sodium Bicarbonate 650 Mg Tablet PO 04/19/25 13:59 325 mg DAILY JESSICA Administration Plan Katharine Goldberg is a 74-year-old female with a previous medical history of hypertension, hypothyroidism, insulin-dependent diabetes mellitus, osteoporosis, hemorroids, lateral ankle chronic wound who was brought to the ED due to general weakness, nausea and vomiting. Patient is going to be admitted for soft tissue infection work up and management. #MSSA bacteremia #Soft tissue infection #Right lateral malleolus ulcer #Diabetic foot ulcer qSOFA score is 0. Patient is generally weak and has 2 potential sources of infection - pressure sores and chronic ankle wound. She has also chronic leukocytosis and has received multiple courses of antibiotics before. She also underwent course of hyperbaric oxygenation for the ulcer treatment without effect and underwent work-up for medication induced [place] syndrome, according to chart review, ACTH 9, total cortisol <1 in 01/2025, work-up for C3-C4c complement deficiency, which was negative. Hepatitis panel was negative, cryglobulin was negative. She also underwent peripheral angiogram in 2023 which was negative for arterial stenosis/ arterial disease. Ankle xray No jace cortical bone destruction. MRI negative for osteomyelitis. MRSA nares negative. Blood cultures from 03/16 returned positive GPC 2/2 Blood cultures from 03/18 grew bottle #1 MSSA bacteremia and bottle #2 GPC (pending final speciation) Echo negative for PFO or vegetations. - stopped vancomycin (03/17/25-03/23) & cefepime 2g q8hr 03/17/25-4/24 -started IV cefazolin 2g TID (03/23-) - wound care - repeat blood cultures pending - IV dilaudid 0.25mg q4hr PRN #Insulin dependent Type 2 diabetes mellitus-poorly controlled Patient is on Tresiba 12 U qday with sliding scale insulin and metformin. A1c 7.9%. Plan: - Glargine 12 units qday - Sliding scale insulin with fingerstick blood sugar checks - hypoglycemia protocol - Lyrica for neuropathic pain #Metabolic acidosis #Electrolyte abnormalities Unknown cause of metabolic acidosis. Less likely DKA blood sugars well- controlled. Most recent lactic acid within normal limits. No recent history of diarrhea. ?sodium bicarb 325 mg daily ? Replete electrolytes as needed #Hypertension #History of valve disease Patient is following with Dr. Phelan. She has multiple blood pressure medication on board, including nicardipine. In the ED, her BP was ranging from 77/56 to the SBP in the 170s. Plan: - amlodipine 10 mg qday -stopped Furosemide 20mg daily -started Coreg 3.125 BID - hydralazine 10 mg IV prn q2hr if SBP>180 - consider consulting cardiology if BP is not controlled - home olmesartan and spironolactone on hold due hyperkalemia #Hyperkalemia-resolved Most likely side effect of spironolactone and olmesartan. Plan: - spironolactone and olmesartan on hold - monitor daily CMP #History of depression Plan: - resumed home lexapro #Hypothyroidism Plan: - resumed home levothyroxine 75mcg #Anemia #Iron deficiency Patient's hemoglobin 6.6, possible etiology of multifactorial anemia, does have significant iron deficiency According to chart review, appears chronic, most likely in the setting of chronic disease. Iron panel shows iron 8 mcg/dL, TIBC 165, iron saturation 4% Patient denies any blood in stool Plan: - FOBT pending - transfuse of Hgb<7 - Will consider discharging on iron tablets Health maintenance: FEN: cardiac, carbohydrate consistent DVT prophylaxis: heparin sc GI prophylaxis: none Dispo: IV antibiotics, bcx pending, ID rec pending CODE STATUS: DNR (patient declined resuscitation in case of cardiac arrest, witnessed by the daughter and Dr. Aguilera) The patient's management plan was discussed with my attending physician Dr. Madden. Martha Johnson, PGY1 Attending Provider Attestation/Addendum I discussed with and supervised the resident physician who took care of this patient. I agree with the assessment and plan as above. Patient was seen and examined. She will continue on IV Ancef for MSSA bacteremia secondary to diabetic foot ulcer. Patient's daughter was updated of her condition by IM residents.
[2025-03-25] MEDS: carVEDILOL 3.125 MG TABLET PO (16:44)
--- NOTE | 2025-03-25 19:12 | PC.NURSE ---
Patient had chief complaint of pain of 10/10. Patinet was given PRN dilaudid. Patient's family is at bedside.
[2025-03-25] MEDS: ATORVASTATIN CALCIUM 20 MG TABLET PO (20:44)
[2025-03-26] VITALS (9 sets, daily range): BP systolic 123–153; BP diastolic 65–88; PULSE 70–98; RESP 13–17; TEMP 36.1–36.7; O2SAT 94–98
[2025-03-26] MEDS: HYDROmorphone INJ 2 MG/ML VIAL 0.25 MG IVP ×4 (04:36→16:28)
[2025-03-26] MEDS: ceFAZolin/D5W 2 GM IV 2 GM/100 ML BAG IV ×3 (05:28→21:08)
[2025-03-26] MEDS: LEVOTHYROXINE SODIUM 25 MCG TABLET 75 MCG PO (05:28)
[2025-03-26 06:18] LABS: Basophils # (Auto) 0.1 Thou/mm3 (0.0-0.2); Basophils % (Auto) 1 % (0-2.5); Eosinophils % (Auto) 0 % (0-10); Hematocrit 23.8 % (36.0-46.0); Immature Granulocytes % (Auto) 3 % (0-0); Immature Granulocytes Auto 0.29 Thou/mm3 (0.00-0.00); Lymphocytes # (Auto) 1.9 Thou/mm3 (1.0-4.8); Lymphocytes % (Auto) 17 % (10-50); Mean Corpuscular HGB Conc 33.6 g/dl (31.0-37.0); Mean Corpuscular Hemoglobin 30.3 pg (25.0-35.0); Mean Corpuscular Volume 90 fL (80-100); Monocytes # (Auto) 0.7 Thou/mm3 (0.0-0.8); Monocytes % (Auto) 6 % (0-12); Neutrophils # (Auto) 8.1 Thou/mm3 (1.8-7.7); Neutrophils % (Auto) 73 % (37-80); Nucleated Red Blood Cell % 0 /100 WBC (0); Platelet Count 449 Thou/mm3 (140-440); RDW Standard Deviation 55.3 fL (36.4-46.3); Red Blood Count 2.64 Miln/mm3 (4.00-5.20); White Blood Count 11.1 Thou/mm3 (3.6-11.0)
[2025-03-26 06:24] LABS: Alanine Aminotransferase < 7 U/L (10-49); Albumin, Serum 2.7 gm/dL (3.4-4.8); Albumin/Globulin Ratio 1.1 (1.2-2.2); Alkaline Phosphatase 123 U/L (46-116); Anion Gap 9 (7-16); Aspartate Amino Transferase 22 U/L (0-34); BUN/Creatinine Ratio 33 Ratio (12-20); Bilirubin,Total 0.3 mg/dL (0.3-1.2); Blood Urea Nitrogen 13 mg/dL (9-23); Calcium 7.3 mg/dL (8.3-10.6); Calcium (Corrected) 8.3 mg/dL (8.5-10.1); Carbon Dioxide 23.9 mMol/L (20.0-31.0); Chloride 92 mMol/L (98-107); Creatinine (Component) 0.4 mg/dL (0.6-1.3); Estimated Creatinine Clearance 91.7 mL/min (>60); Globulin 2.4 gm/dL (2.3-3.5); Glucose 98 mg/dL (74-106); Magnesium 1.6 mg/dL (1.6-2.6); Osmolality,Calculated 251 (275-295); Potassium 3.6 mMol/L (3.4-5.1); Sodium 125 mMol/L (136-145); Total Protein 5.1 gm/dL (5.7-8.2); eGFR > 60 See Note
[2025-03-26] MEDS: ACETAMINOPHEN 325 MG TABLET 650 MG PO (07:48)
[2025-03-26] MEDS: HEPARIN SOD INJ 5000 UNIT/ML VIAL SC ×2 (08:34→21:09)
[2025-03-26] MEDS: amLODIPine BESYLATE 5 MG TABLET 10 MG PO (08:34)
[2025-03-26] MEDS: INSULIN GLARGINE (Lantus) 5 UNIT/0.05 ML (PER 5 UNITS) 12 UNIT SC (08:34)
[2025-03-26] MEDS: SENNA TABLET 2 TAB PO (08:35)
[2025-03-26] MEDS: carVEDILOL 3.125 MG TABLET PO ×2 (08:35→17:17)
[2025-03-26] MEDS: ESCITALOPRAM OXALATE 10 MG TABLET PO (08:35)
[2025-03-26] MEDS: SODIUM BICARBONATE 650 MG TABLET 325 MG PO (08:47)
[2025-03-26] MEDS: Silvasorb Gel 45 ML TUBE TOP (12:24)
[2025-03-26] MEDS: MIRTAZAPINE 15 MG TABLET PO (12:24)
[2025-03-26] MEDS: INSULIN LISPRO (AdmeLOG) 1 UNIT/0.01 ML UNIT SC ×2 (12:25→17:35)
--- NOTE | 2025-03-26 12:45 | ESPR_ITS ---
Documentation for date of: 03/26/25 Subjective Subjective Interval history: Patient examined at bedside, complains of weakness. Lower extremity foot pain. Decreased appetite. Family was updated. They are concerned about her not eating and are requesting appetite stimulator. Start mirtazapine 15mg daily. Vitals stable, Blood sugar well controlled. WBC 11, potassium 3.6, sodium 125. Metabolic acidosis improving with bicarb of 23. Continue oral bicarb. Will continue to hold spironolactone and olmesartan due to patient's hyperkalemia at admission. Continue with amlodipine 10mg daily and started Coreg 3.125BID Continue IV cefazolin for MSSA bacteremia. Repeat blood cultures pending. Final ID recs pending. Anticipate discharge next 24hrs to SNF. Exam Vital Signs Temp Pulse Resp BP Pulse Ox O2 Del Method 98.0 F 88 13 135/74 H 98 Room Air 03/26/25 08:00 03/26/25 08:35 03/26/25 08:00 03/26/25 08:35 03/26/25 08:00 03/26/25 08:00 Narrative Exam General: Elderly female, Awake, ill-appearing, lethargic HEENT: Normocephalic, atraumatic, mucous membranes dry. Heart: Regular rate and rhythm, no murmurs. Lungs: Clear to auscultation with no wheezing or crackles. Abdomen: Soft, nondistended, nontender, positive bowel sounds. ?No guarding or rebound tenderness. Neurologic: Alert, no gross neurological deficit, and patient able to move all 4 extremities. Extremities: Pitting 2+ edema of the feet, no ankle edema. Right foot is covered in bandage, right maleolous ulcer stage 2-3 Skin: sacral pressure ulcer stage 2, 3-4 inches long Objective Labs 03/26/25 05:20 03/26/25 05:20 Labs: Laboratory Results - last 24 hr 03/26/25 05:20 WBC 11.1 H RBC 2.64 L Hgb 8.0 L Hct 23.8 L MCV 90 MCH 30.3 MCHC 33.6 RDW Std Deviation 55.3 H Plt Count 449 H D Neut % (Auto) 73 Lymph % (Auto) 17 [place] % (Auto) 6 Eos % (Auto) 0 Baso % (Auto) 1 Neut # (Auto) 8.1 H Lymph # (Auto) 1.9 [place] # (Auto) 0.7 Eos # (Auto) 0.0 Baso # (Auto) 0.1 Immature Gran # (Auto) 0.29 H Absolute Nucleated RBC 0.00 Immature Gran % 3 H Nucleated RBC % 0 Sodium 125 L Potassium 3.6 D Chloride 92 L Carbon Dioxide 23.9 Anion Gap 9 BUN 13 Creatinine 0.4 L Estim Creat Clear Calc 91.7 eGFR > 60 BUN/Creatinine Ratio 33 H Glucose 98 Calculated Osmolality 251 L Calcium 7.3 L Corrected Calcium 8.3 L Magnesium 1.6 Total Bilirubin 0.3 AST 22 ALT < 7 L Alkaline Phosphatase 123 H Total Protein 5.1 L Albumin 2.7 L Globulin 2.4 Albumin/Globulin Ratio 1.1 L ABG Interpretation ABG results: 03/17/25 03/19/25 00:53 11:07 ABG pH 7.44 ABG pCO2 36 ABG pO2 81 L ABG HCO3 24 ABG O2 Saturation 95 ABG Base Excess 0 VBG pH 7.36 VBG pCO2 32 L VBG pO2 41 VBG Base Excess -6 L Quality Measures Quality Measures VTE prophylaxis Advance care planning discussed with:: patient Assessment & Plan Assessment Current Active Medications: Generic Name Dose Route Start Last Admin Trade Name Freq PRN Reason Stop Dose Admin Acetaminophen 650 mg 03/24/25 14:49 03/26/25 07:48 Acetaminophen 325 Mg Tablet PO 04/16/25 00:04 650 mg Q6H PRN Administration Fever >100.3 or Pain 1-3 Amlodipine Besylate 10 mg 03/22/25 09:00 03/26/25 08:34 Amlodipine Besylate 5 Mg Tablet PO 04/21/25 08:59 10 mg QDAY JESSICA Administration Atorvastatin Calcium 20 mg 03/17/25 21:00 03/25/25 20:44 Atorvastatin Calcium 20 Mg Tablet PO 04/16/25 20:59 20 mg HS JESSICA Administration Carvedilol 3.125 mg 03/25/25 17:30 03/26/25 08:35 Carvedilol 3.125 Mg Tablet PO 04/24/25 17:29 3.125 mg BIDWM JESSICA Administration Dextrose 25 ml 03/17/25 00:11 Dextrose 50%-Water Inj 50 Ml Syringe IV 04/16/25 00:10 Q15MIN PRN BG 50-70 responsive npo pt Dextrose 50 ml 03/17/25 00:11 Dextrose 50%-Water Inj 50 Ml Syringe IV 04/16/25 00:10 Q15MIN PRN BG <50 OR BG <70 & pt unresponsive Escitalopram Oxalate 10 mg 03/17/25 09:00 03/26/25 08:35 Escitalopram Oxalate 10 Mg Tablet PO 04/16/25 08:59 10 mg QDAY JESSICA Administration Glucagon 1 mg 03/17/25 00:11 Glucagon Inj 1 Mg Vial IM Q15MIN PRN BG <70, and no IV access Heparin Sodium (Porcine) 5,000 unit 03/19/25 21:00 03/26/25 08:34 Heparin Sod Inj 5000 Unit/Ml Vial SC 04/02/25 20:59 5,000 unit Q12HR JESSICA Administration Hydralazine HCl 10 mg 03/17/25 00:13 Hydralazine Inj 20 Mg/Ml Vial IV 04/16/25 01:59 Q2HR PRN SBP>180 Hydromorphone HCl 0.25 mg 03/22/25 15:31 03/26/25 12:25 Hydromorphone Inj 2 Mg/Ml Vial IVP 03/27/25 15:30 0.25 mg Q4HR PRN Administration PAIN SCALE 4-10(Mod-Sev Cefazolin Sodium 2 gm in 100 mls @ 100 mls/hr 03/23/25 09:05 03/26/25 05:28 Ancef 2gm Ivpb IV 03/30/25 09:04 100 mls/hr Q8HR JESSICA Administration Insulin Glargine 12 unit 03/17/25 09:00 03/26/25 08:34 Insulin Glargine (Lantus) 5 Unit/0.05 Ml (Per 5 Units) SC 04/16/25 08:59 12 unit QDAY JESSICA Administration Insulin Human Lispro 0 unit 03/22/25 21:00 03/26/25 12:25 Insulin Lispro (Admelog) 1 Unit/0.01 Ml Unit SC 04/21/25 20:59 2 unit ACHS JESSICA Administration Protocol Levothyroxine Sodium 75 mcg 03/17/25 06:00 03/26/25 05:28 Levothyroxine Sodium 25 Mcg Tablet PO 04/16/25 05:59 75 mcg ACBR JESSICA Administration Mirtazapine 15 mg 03/26/25 11:15 03/26/25 12:24 Mirtazapine 15 Mg Tablet PO 04/25/25 11:14 15 mg QDAY JESSICA Administration Ondansetron HCl 4 mg 03/17/25 00:20 Ondansetron Inj 2 Mg/Ml Inj 2 Ml IV 04/16/25 00:19 Q6HR PRN NAUSEA OR VOMITING Protocol Polyethylene Glycol 17 gm 03/20/25 09:00 03/26/25 08:36 Polyethylene Glycol 17 Gm Packet PO 04/19/25 08:59 Not Given QDAY JESSICA Sennosides 2 tab 03/20/25 09:00 03/26/25 08:35 Senna Tablet PO 04/19/25 08:59 2 tab QDAY JESSICA Administration Protocol Sodium Bicarbonate 325 mg 03/20/25 14:00 03/26/25 08:47 Sodium Bicarbonate 650 Mg Tablet PO 04/19/25 13:59 325 mg DAILY JESSICA Administration Plan Katharine Goldberg is a 74-year-old female with a previous medical history of hypertension, hypothyroidism, insulin-dependent diabetes mellitus, osteoporosis, hemorroids, lateral ankle chronic wound who was brought to the ED due to general weakness, nausea and vomiting. Patient is going to be admitted for soft tissue infection work up and management. #MSSA bacteremia #Soft tissue infection #Right lateral malleolus ulcer #Diabetic foot ulcer qSOFA score is 0. Patient is generally weak and has 2 potential sources of infection - pressure sores and chronic ankle wound. She has also chronic leukocytosis and has received multiple courses of antibiotics before. She also underwent course of hyperbaric oxygenation for the ulcer treatment without effect and underwent work-up for medication induced [place] syndrome, according to chart review, ACTH 9, total cortisol <1 in 01/2025, work-up for C3-C4c complement deficiency, which was negative. Hepatitis panel was negative, cryglobulin was negative. She also underwent peripheral angiogram in 2023 which was negative for arterial stenosis/ arterial disease. Ankle xray No jace cortical bone destruction. MRI negative for osteomyelitis. MRSA nares negative. Blood cultures from 03/16 returned positive GPC 2/2 Blood cultures from 03/18 grew bottle #1 MSSA bacteremia and bottle #2 GPC (pending final speciation) Echo negative for PFO or vegetations. - stopped vancomycin (03/17/25-03/23) & cefepime 2g q8hr 03/17/25-03/23 -started IV cefazolin 2g TID (03/23-) - wound care - repeat blood cultures pending - IV dilaudid 0.25mg q4hr PRN #Insulin dependent Type 2 diabetes mellitus-poorly controlled Patient is on Tresiba 12 U qday with sliding scale insulin and metformin. A1c 7.9%. Plan: - Glargine 12 units qday - Sliding scale insulin with fingerstick blood sugar checks - hypoglycemia protocol - Lyrica for neuropathic pain #Anorexia -started mirtazapine 15mg daily -continue with Ensure -monitor #Metabolic acidosis #Electrolyte abnormalities Unknown cause of metabolic acidosis. Less likely DKA blood sugars well- controlled. Most recent lactic acid within normal limits. No recent history of diarrhea. ?sodium bicarb 325 mg daily ? Replete electrolytes as needed #Hypertension #History of valve disease Patient is following with Dr. Phelan. She has multiple blood pressure medication on board, including nicardipine. In the ED, her BP was ranging from 77/56 to the SBP in the 170s. Plan: - amlodipine 10 mg qday -stopped Furosemide 20mg daily -started Coreg 3.125 BID - hydralazine 10 mg IV prn q2hr if SBP>180 - consider consulting cardiology if BP is not controlled - home olmesartan and spironolactone on hold due hyperkalemia #Hyperkalemia-resolved Most likely side effect of spironolactone and olmesartan. Plan: - spironolactone and olmesartan on hold - monitor daily CMP #History of depression Plan: - resumed home lexapro #Hypothyroidism Plan: - resumed home levothyroxine 75mcg #Anemia #Iron deficiency Patient's hemoglobin 6.6, possible etiology of multifactorial anemia, does have significant iron deficiency According to chart review, appears chronic, most likely in the setting of chronic disease. Iron panel shows iron 8 mcg/dL, TIBC 165, iron saturation 4% Patient denies any blood in stool Plan: - FOBT pending - transfuse of Hgb<7 - Will consider discharging on iron tablets Health maintenance: FEN: cardiac, carbohydrate consistent DVT prophylaxis: heparin sc GI prophylaxis: none Dispo: IV antibiotics, bcx pending, ID rec pending CODE STATUS: DNR (patient declined resuscitation in case of cardiac arrest, witnessed by the daughter and Dr. Aguilera) The patient's management plan was discussed with my attending physician Dr. Madden. Martha Johnson, PGY1 Attending Provider Attestation/Addendum Patient seen and examined. She is afebrile. She has diabetic foot ulcer. Patient has MSSA bacteremia on IV cefazolin. Bedside rounds with housestaff today. Disposition: SNF
[2025-03-26] MEDS: ATORVASTATIN CALCIUM 20 MG TABLET PO (21:09)
[2025-03-27] VITALS (10 sets, daily range): BP systolic 109–156; BP diastolic 62–70; PULSE 77–93; RESP 12–21; TEMP 36.1–36.7; O2SAT 94–98
[2025-03-27] MEDS: ceFAZolin/D5W 2 GM IV 2 GM/100 ML BAG IV ×3 (05:40→21:07)
[2025-03-27] MEDS: LEVOTHYROXINE SODIUM 25 MCG TABLET 75 MCG PO (05:40)
[2025-03-27] MEDS: HYDROmorphone INJ 2 MG/ML VIAL 0.25 MG IVP ×2 (06:44→14:39)
[2025-03-27] MEDS: SODIUM BICARBONATE 650 MG TABLET 325 MG PO (08:16)
[2025-03-27] MEDS: amLODIPine BESYLATE 5 MG TABLET 10 MG PO (08:17)
[2025-03-27] MEDS: MIRTAZAPINE 15 MG TABLET PO (08:17)
[2025-03-27] MEDS: ESCITALOPRAM OXALATE 10 MG TABLET PO (08:17)
[2025-03-27] MEDS: carVEDILOL 3.125 MG TABLET PO ×2 (08:17→18:40)
[2025-03-27] MEDS: SENNA TABLET 2 TAB PO (08:18)
[2025-03-27] MEDS: INSULIN GLARGINE (Lantus) 5 UNIT/0.05 ML (PER 5 UNITS) 12 UNIT SC (08:18)
[2025-03-27] MEDS: HEPARIN SOD INJ 5000 UNIT/ML VIAL SC ×2 (08:18→21:08)
[2025-03-27] MEDS: POLYETHYLENE GLYCOL 17 GM PACKET PO (08:18)
[2025-03-27] MEDS: Silvasorb Gel 45 ML TUBE TOP (09:00)
--- NOTE | 2025-03-27 09:04 | PC.SS ---
Follow up note: Pt will require wound vac upon dc and 2 more days of IV antibiotic. Pt will d/c to [facility]. Dtr and son are aware patient's health insurance does not cover transportation at d/c.
--- NOTE | 2025-03-27 09:29 | PD.IDPROG ---
Subjective Subjective Interval history: no echo yet. odd. Exam Vital Signs Temp Pulse Resp BP Pulse Ox O2 Del Method 97.0 F 83 18 147/66 H 95 Room Air 03/27/25 07:56 03/27/25 08:17 03/27/25 07:56 03/27/25 08:17 03/27/25 07:56 03/27/25 07:56 Narrative Exam limited eval Objective - Internal Medicine Labs 03/26/25 05:20 03/26/25 05:20 ABG Interpretation ABG results: 03/17/25 03/19/25 00:53 11:07 ABG pH 7.44 ABG pCO2 36 ABG pO2 81 L ABG HCO3 24 ABG O2 Saturation 95 ABG Base Excess 0 VBG pH 7.36 VBG pCO2 32 L VBG pO2 41 VBG Base Excess -6 L Assessment & Plan A&P Narrative Bacteremia with staph aureus after coag neg in bc done at nearly the same time and a normal procal with f/u procal abn and bc with staph aureus other problems as noted will check in again on Thursday. if f/u bc neg and echo neg, then can opine on rx duration at that time. with dopplers abnormal. then f/u with vascular. control dm too please. a1c's noted on arrival pvd. see arterial doppler report. Time Spent With Patient Time: Total time spent is greater than 50% in coordination of care (as documented) at patient's floor/unit and/or counseling patient:
--- NOTE | 2025-03-27 09:34 | PD.IDPROG ---
Subjective Subjective Interval history: located echo, neg. good. bc were done as a repeat for the coag neg bc before. procal neg. Exam Vital Signs Temp Pulse Resp BP Pulse Ox O2 Del Method 97.0 F 83 18 147/66 H 95 Room Air 03/27/25 07:56 03/27/25 08:17 03/27/25 07:56 03/27/25 08:17 03/27/25 07:56 03/27/25 07:56 Narrative Exam limited visit still Objective - Internal Medicine Labs 03/26/25 05:20 03/26/25 05:20 ABG Interpretation ABG results: 03/17/25 03/19/25 00:53 11:07 ABG pH 7.44 ABG pCO2 36 ABG pO2 81 L ABG HCO3 24 ABG O2 Saturation 95 ABG Base Excess 0 VBG pH 7.36 VBG pCO2 32 L VBG pO2 41 VBG Base Excess -6 L Assessment & Plan A&P Narrative Bacteremia with staph aureus after coag neg in bc done at nearly the same time and a normal procal with f/u procal abn and bc with staph aureus and neg echo , tte other problems as noted then can opine on rx duration at that time. with dopplers abnormal. then f/u with vascular. control dm too please. a1c's noted on arrival pvd. see arterial doppler report. with staph bcteremia and abn procal, favor rx thru 04/05 with rocephin 2 gm daily and weekly cbc, renal panel, esr and line removal at end of rx. ok to change to rocephin early tomorrow. Time Spent With Patient Time: Total time spent is greater than 50% in coordination of care (as documented) at patient's floor/unit and/or counseling patient:
--- NOTE | 2025-03-27 11:16 | XR_ITS ---
Examination: Ultrasound-guided needle placement right basilic vein. Dual-lumen central line placement (PICC line). Fluoroscopy AP chest, portable, single view Exam date and time:March 27, 2025 1221 hours INDICATIONS: For long-term intravenous medication for osteomyelitis A timeout was completed verifying correct patient, procedure, site, positioning Informed consent provided Technique: The patient's site was prepped and draped in sterile fashion. Maximum Sterile Barrier Technique used including cap, mask, sterile gown, sterile gloves, and sterile full body drape. If ultrasound technique used: sterile gel and sterile probe covers. Hand Hygiene performed using proper scrub, soap and water, or alcohol-based hand rub. Site right portable ultrasound apparatus utilized to confirm patency of the right basilic vein Utilizing ultrasonographic guidance successful 21-gauge needle puncture into the right basilic vein Ultrasound images recorded and stored. 5 cc 1% lidocaine administered for local anesthetic. Successful micropuncture with a 21-gauge needle is performed. 0.18 wire guide is then introduced into the SVC under fluoroscopic guidance. Dual-lumen catheter dilator is then introduced, followed by the catheter in the SVC and proper position under fluoroscopic guidance. Successful aspiration of blood and flushing with heparinized saline is then performed in the 2 venous limbs. The catheter sutured in place. Findings: Under fluoroscopy, the tip of the catheter is in good position in the vena cava. Portable chest x-ray, post line placement is ordered. Estimated blood loss 3 cc The patient tolerated the procedure well and was in stable and satisfactory condition at completion of the procedure Impression: Successful ultrasound-guided needle placement right basilic vein Successful placement of dual lumen central line, percutaneous Fluoroscopy 0.1 minute radiation dose 0.46 milligray 1 spot fluoroscopic chest film. AP chest completion procedure demonstrates satisfactory position central line. May use central line.
[2025-03-27] MEDS: HEPARIN SOD LOCK SYR 100 UNIT/ML 500 UNIT STFIELD (13:44)
[2025-03-27] MEDS: LIDOCAINE INJ PF 1% 30 ML VIAL INFL (13:44)
--- NOTE | 2025-03-27 13:59 | PC.NURSE ---
PICC line inserted, patient tolerated well. No signs of bleeding. Dressing clean, dry, and intact. Patient being transferred to med surg unit via [facility].
--- NOTE | 2025-03-27 14:57 | PC.SS ---
SS has sent updated physician note by Dr. Gay, pt is now requiring IV antibiotic, Rocephin 1 X day until 04-05-25. Iesha from [facility] is aware and they are able to accommodate the IV antibiotic. Pt is getting a PICC line today.
--- NOTE | 2025-03-27 15:57 | PD.RESPRO ---
Documentation for date of: 03/27/25 Subjective Subjective Interval history: Patient examined at bedside, complains of weakness. Lower extremity foot pain. Decreased appetite and lethargic. Son was updated at bedside. Expressed concern about pain medication addiction. Stated that patient use to self medicate with pain meds without telling family. Is requesting to get only one week of oral medication at time of DC. All questions about management were answered in full. Vitals stable, Blood sugar well controlled. WBC 11, potassium 3.6, sodium 125. Metabolic acidosis improving with bicarb of 23. Continue oral bicarb. Good BP control with amlodipine 10mg daily and Coreg 3.125BID Patient will get PICC line today for IV ceftriaxone 2g daily until April 05 in setting of MSSA bacteremia. Anticipate discharge next 24hrs to SNF. Exam Vital Signs Temp Pulse Resp BP Pulse Ox O2 Del Method 97.0 F 85 16 128/69 94 L Room Air 03/27/25 12:00 03/27/25 12:00 03/27/25 12:00 03/27/25 12:00 03/27/25 12:03/27/25 12:00 Narrative Exam General: Elderly female, Awake, ill-appearing, lethargic HEENT: Normocephalic, atraumatic, mucous membranes dry. Heart: Regular rate and rhythm, no murmurs. Lungs: Clear to auscultation with no wheezing or crackles. Abdomen: Soft, nondistended, nontender, positive bowel sounds. ?No guarding or rebound tenderness. Neurologic: Alert, no gross neurological deficit, and patient able to move all 4 extremities. Extremities: Pitting 2+ edema of the feet, no ankle edema. Right foot is covered in bandage, right maleolous ulcer stage 2-3 Skin: sacral pressure ulcer stage 2, 3-4 inches long Objective Labs 03/26/25 05:20 03/26/25 05:20 ABG Interpretation ABG results: 03/17/25 03/19/25 00:53 11:07 ABG pH 7.44 ABG pCO2 36 ABG pO2 81 L ABG HCO3 24 ABG O2 Saturation 95 ABG Base Excess 0 VBG pH 7.36 VBG pCO2 32 L VBG pO2 41 VBG Base Excess -6 L Quality Measures Quality Measures VTE prophylaxis Advance care planning discussed with:: patient and child Assessment & Plan Assessment Current Active Medications: Generic Name Dose Route Start Last Admin Trade Name Michael PRN Reason Stop Dose Admin Acetaminophen 650 mg 03/24/25 14:49 03/26/25 07:48 Acetaminophen 325 Mg Tablet PO 04/16/25 00:04 650 mg Q6H PRN Administration Fever >100.3 or Pain 1-3 Amlodipine Besylate 10 mg 03/22/25 09:00 03/27/25 08:17 Amlodipine Besylate 5 Mg Tablet PO 04/21/25 08:59 10 mg QDAY JESSICA Administration Atorvastatin Calcium 20 mg 03/17/25 21:00 03/26/25 21:09 Atorvastatin Calcium 20 Mg Tablet PO 04/16/25 20:59 20 mg HS JESSICA Administration Carvedilol 3.125 mg 03/25/25 17:30 03/27/25 08:17 Carvedilol 3.125 Mg Tablet PO 04/24/25 17:29 3.125 mg BIDWM JESSICA Administration Dextrose 25 ml 03/17/25 00:11 Dextrose 50%-Water Inj 50 Ml Syringe IV 04/16/25 00:10 Q15MIN PRN BG 50-70 responsive npo pt Dextrose 50 ml 03/17/25 00:11 Dextrose 50%-Water Inj 50 Ml Syringe IV 04/16/25 00:10 Q15MIN PRN BG <50 OR BG <70 & pt unresponsive Escitalopram Oxalate 10 mg 03/17/25 09:00 03/27/25 08:17 Escitalopram Oxalate 10 Mg Tablet PO 04/16/25 08:59 10 mg QDAY JESSICA Administration Glucagon 1 mg 03/17/25 00:11 Glucagon Inj 1 Mg Vial IM Q15MIN PRN BG <70, and no IV access Heparin Sodium (Porcine) 5,000 unit 03/19/25 21:00 03/27/25 08:18 Heparin Sod Inj 5000 Unit/Ml Vial SC 04/02/25 20:59 5,000 unit Q12HR JESSICA Administration Hydralazine HCl 10 mg 03/17/25 00:13 Hydralazine Inj 20 Mg/Ml Vial IV 04/16/25 01:59 Q2HR PRN SBP>180 Cefazolin Sodium 2 gm in 100 mls @ 100 mls/hr 03/23/25 09:05 03/27/25 14:39 Ancef 2gm Ivpb IV 03/30/25 09:04 100 mls/hr Q8HR JESSICA Administration Insulin Glargine 12 unit 03/17/25 09:00 03/27/25 08:18 Insulin Glargine (Lantus) 5 Unit/0.05 Ml (Per 5 Units) SC 04/16/25 08:59 12 unit QDAY JESSICA Administration Insulin Human Lispro 0 unit 03/22/25 21:00 03/27/25 12:13 Insulin Lispro (Admelog) 1 Unit/0.01 Ml Unit SC 04/21/25 20:59 Not Given ACHS JESSICA Protocol Levothyroxine Sodium 75 mcg 03/17/25 06:00 03/27/25 05:40 Levothyroxine Sodium 25 Mcg Tablet PO 04/16/25 05:59 75 mcg ACBR JESSICA Administration Mirtazapine 15 mg 03/26/25 11:15 03/27/25 08:17 Mirtazapine 15 Mg Tablet PO 04/25/25 11:14 15 mg QDAY JESSICA Administration Ondansetron HCl 4 mg 03/17/25 00:20 Ondansetron Inj 2 Mg/Ml Inj 2 Ml IV 04/16/25 00:19 Q6HR PRN NAUSEA OR VOMITING Protocol Polyethylene Glycol 17 gm 03/20/25 09:00 03/27/25 08:18 Polyethylene Glycol 17 Gm Packet PO 04/19/25 08:59 17 gm QDAY JESSICA Administration Sennosides 2 tab 03/20/25 09:00 03/27/25 08:18 Senna Tablet PO 04/19/25 08:59 2 tab QDAY JESSICA Administration Protocol Sodium Bicarbonate 325 mg 03/20/25 14:00 03/27/25 08:16 Sodium Bicarbonate 650 Mg Tablet PO 04/19/25 13:59 325 mg DAILY JESSICA Administration Plan Katharine Goldberg is a 74-year-old female with a previous medical history of hypertension, hypothyroidism, insulin-dependent diabetes mellitus, osteoporosis, hemorroids, lateral ankle chronic wound who was brought to the ED due to general weakness, nausea and vomiting. Patient is going to be admitted for soft tissue infection work up and management. #MSSA bacteremia #Soft tissue infection #Right lateral malleolus ulcer #Diabetic foot ulcer qSOFA score is 0. Patient is generally weak and has 2 potential sources of infection - pressure sores and chronic ankle wound. She has also chronic leukocytosis and has received multiple courses of antibiotics before. She also underwent course of hyperbaric oxygenation for the ulcer treatment without effect and underwent work-up for medication induced [place] syndrome, according to chart review, ACTH 9, total cortisol <1 in 01/2025, work-up for C3-C4c complement deficiency, which was negative. Hepatitis panel was negative, cryglobulin was negative. She also underwent peripheral angiogram in 2023 which was negative for arterial stenosis/ arterial disease. Ankle xray No jace cortical bone destruction. MRI negative for osteomyelitis. MRSA nares negative. Blood cultures from 03/16 returned positive GPC 2/2 Blood cultures from 03/18 grew bottle #1 MSSA bacteremia and bottle #2 GPC (pending final speciation) Echo negative for PFO or vegetations. vancomycin (03/17/25-03/23) & cefepime 2g q8hr (03/17/25-03/23) IV cefazolin 2g TID (03/23-) -get PICC line today for IV ceftriaxone 2g daily until April 05 - wound care - IV dilaudid 0.25mg q8hr PRN #Insulin dependent Type 2 diabetes mellitus-poorly controlled Patient is on Tresiba 12 U qday with sliding scale insulin and metformin. A1c 7.9%. Plan: - Glargine 12 units qday - Sliding scale insulin with fingerstick blood sugar checks - hypoglycemia protocol - Lyrica for neuropathic pain #Anorexia -started mirtazapine 15mg daily -continue with Ensure -monitor #Metabolic acidosis #Electrolyte abnormalities Unknown cause of metabolic acidosis. Less likely DKA blood sugars well-controlled. Most recent lactic acid within normal limits. No recent history of diarrhea. ?sodium bicarb 325 mg daily ? Replete electrolytes as needed #Hypertension #History of valve disease Patient is following with Dr. Phelan. She has multiple blood pressure medication on board, including nicardipine. In the ED, her BP was ranging from 77/56 to the SBP in the 170s. Plan: - amlodipine 10 mg qday - Coreg 3.125 BID - hydralazine 10 mg IV prn q2hr if SBP>180 - consider consulting cardiology if BP is not controlled - home olmesartan and spironolactone on hold due hyperkalemia #Hyperkalemia-resolved Most likely side effect of spironolactone and olmesartan. Plan: - spironolactone and olmesartan on hold - monitor daily CMP #History of depression Plan: - resumed home lexapro #Hypothyroidism Plan: - resumed home levothyroxine 75mcg #Anemia #Iron deficiency Patient's hemoglobin 6.6, possible etiology of multifactorial anemia, does have significant iron deficiency According to chart review, appears chronic, most likely in the setting of chronic disease. Iron panel shows iron 8 mcg/dL, TIBC 165, iron saturation 4% Patient denies any blood in stool Plan: - FOBT pending - transfuse of Hgb<7 - Will consider discharging on iron tablets Health maintenance: FEN: cardiac, carbohydrate consistent DVT prophylaxis: heparin sc GI prophylaxis: none Dispo: dc SNF tomorrow with PICC CODE STATUS: DNR (patient declined resuscitation in case of cardiac arrest, witnessed by the daughter and Dr. Aguilera) The patient's management plan was discussed with my attending physician Dr. Madden. Martha Johnson, PGY1 I discussed with and supervised the post graduate intern physician who took care of this patient. I personally saw and examined the patient and discussed the assessment and plan with the entire medicine team, including my attending Dr. Chano VALDEZ. I agree with the assessment and plan as documented above. Patient interviewed and examined at bedside this a.m. No overnight events reported. Patient underwent PICC line placement today as advised by ID. Patient will continue IV ceftriaxone 2 g daily with an end date of April 05 for continued treatment of MSSA bacteremia. Echo negative for any valvular vegetations. Juan Merida M.D. Internal Medicine PGY-3 Attending Provider Attestation/Addendum Patient went for PICC line today. She will need IV antibiotic treatment through April 05. The patient is afebrile. Vital signs are stable. There is no report of diarrhea. Abdomen is nondistended.
[2025-03-27] MEDS: ATORVASTATIN CALCIUM 20 MG TABLET PO (21:07)
[2025-03-28] VITALS: BP 160/75; PULSE 81; PULSE 86; RESP 17; TEMP 36.1; O2SAT 97
[2025-03-28 04:00] VITALS: BP 141/54; PULSE 83; RESP 19; TEMP 36.1; O2SAT 95
[2025-03-28] MEDS: LEVOTHYROXINE SODIUM 25 MCG TABLET 75 MCG PO (05:56)
[2025-03-28] MEDS: ceFAZolin/D5W 2 GM IV 2 GM/100 ML BAG IV (05:56)
[2025-03-28] MEDS: ACETAMINOPHEN 325 MG TABLET 650 MG PO ×2 (05:56→13:12)
[2025-03-28 06:48] LABS: Alanine Aminotransferase < 7 U/L (10-49); Albumin, Serum 2.8 gm/dL (3.4-4.8); Albumin/Globulin Ratio 1.2 (1.2-2.2); Alkaline Phosphatase 127 U/L (46-116); Anion Gap 8 (7-16); Aspartate Amino Transferase 21 U/L (0-34); BUN/Creatinine Ratio 38 Ratio (12-20); Bilirubin,Total 0.3 mg/dL (0.3-1.2); Blood Urea Nitrogen 15 mg/dL (9-23); Calcium 7.1 mg/dL (8.3-10.6); Calcium (Corrected) 8.1 mg/dL (8.5-10.1); Carbon Dioxide 25.4 mMol/L (20.0-31.0); Chloride 92 mMol/L (98-107); Creatinine (Component) 0.4 mg/dL (0.6-1.3); Estimated Creatinine Clearance 91.7 mL/min (>60); Globulin 2.4 gm/dL (2.3-3.5); Glucose 116 mg/dL (74-106); Osmolality,Calculated 253 (275-295); Potassium 3.2 mMol/L (3.4-5.1); Sodium 125 mMol/L (136-145); Total Protein 5.2 gm/dL (5.7-8.2); eGFR > 60 See Note
[2025-03-28 07:54] LABS: Basophils # (Auto) 0.1 Thou/mm3 (0.0-0.2); Basophils % (Auto) 1 % (0-2.5); Eosinophils # (Auto) 0.1 Thou/mm3 (0.0-0.5); Eosinophils % (Auto) 1 % (0-10); Hematocrit 22.2 % (36.0-46.0); Immature Granulocytes % (Auto) 4 % (0-0); Immature Granulocytes Auto 0.42 Thou/mm3 (0.00-0.00); Lymphocytes # (Auto) 2.1 Thou/mm3 (1.0-4.8); Lymphocytes % (Auto) 20 % (10-50); Mean Corpuscular HGB Conc 34.2 g/dl (31.0-37.0); Mean Corpuscular Hemoglobin 30.3 pg (25.0-35.0); Mean Corpuscular Volume 88 fL (80-100); Monocytes # (Auto) 0.8 Thou/mm3 (0.0-0.8); Monocytes % (Auto) 8 % (0-12); Neutrophils % (Auto) 67 % (37-80); Nucleated Red Blood Cell % 0 /100 WBC (0); Platelet Count 475 Thou/mm3 (140-440); RDW Standard Deviation 53.2 fL (36.4-46.3); Red Blood Count 2.51 Miln/mm3 (4.00-5.20); White Blood Count 10.5 Thou/mm3 (3.6-11.0)
[2025-03-28 08:00] VITALS: BP 149/79; PULSE 110; PULSE 80; RESP 19; TEMP 36.2; O2SAT 96
[2025-03-28] MEDS: POLYETHYLENE GLYCOL 17 GM PACKET PO (08:09)
[2025-03-28 08:10] VITALS: BP 149/79; PULSE 80
[2025-03-28] MEDS: MIRTAZAPINE 15 MG TABLET PO (08:10)
[2025-03-28] MEDS: amLODIPine BESYLATE 5 MG TABLET 10 MG PO (08:10)
[2025-03-28] MEDS: carVEDILOL 3.125 MG TABLET PO (08:10)
[2025-03-28] MEDS: ESCITALOPRAM OXALATE 10 MG TABLET PO (08:11)
[2025-03-28] MEDS: HEPARIN SOD INJ 5000 UNIT/ML VIAL SC (08:11)
[2025-03-28] MEDS: SENNA TABLET 2 TAB PO (08:11)
[2025-03-28] MEDS: INSULIN GLARGINE (Lantus) 5 UNIT/0.05 ML (PER 5 UNITS) 12 UNIT SC (08:11)
[2025-03-28] MEDS: SODIUM BICARBONATE 650 MG TABLET 325 MG PO (08:12)
[2025-03-28 08:28] LABS: Hemoglobin 7.6 g/dL (12.0-16.0)
[2025-03-28] MEDS: POTASSIUM CHLORIDE 20 mEq TABCR 40 MEQ PO (09:21)
[2025-03-28] MEDS: cefTRIAXone/D5w 2gm 2 GM/50 ML BAG IV (10:02)
[2025-03-28] MEDS: CALCIUM CARBONATE 600 MG TABLET PO (10:30)
[2025-03-28] MEDS: Silvasorb Gel 45 ML TUBE TOP (10:31)
[2025-03-28 11:39] VITALS: PULSE 73
--- NOTE | 2025-03-28 11:45 | PC.SS ---
SS spoke to Dee at [facility] who explained they will accept pt after 2pm. SS has informed bedside nurse, Pema, pt and her son in law, Sebastien, who will be providing transportation. SNF packet has been completed. Physician Resident, Dr. Merida is aware.
[2025-03-28 12:00] VITALS: BP 112/60; PULSE 77; RESP 17; TEMP 36.3; O2SAT 97
[2025-03-28 14:44] VITALS: BMI 12.0
--- NOTE | 2025-03-28 21:15 | ESDS_ITS ---
Planned Discharge Date 03/28/25 DS: Providers Provider Date of admission: 03/17/25 00:05 Primary care physician: Physician No Primary/Family Admitting Provider: Mathew Morin DO Attending Provider on Admission: Mega Aguilera MD Consults: 03/17/25 00:15 Referral Wound Care Routine Comment: 03/17/25 02:58 Referral Physical Therapy Routine Comment: Physician Instructions: 03/20/25 12:09 Referral Nutritional Services Routine Comment: Wounds Referral OP Wound Healing Dept Routine Comment: Instructions: Bilateral buttocks pressure injuries, right lateral ankle 03/22/25 11:09 Consult to Infectious Diseases Routine Comment: Consulting Provider: Maurisio Mcknight Attending Provider on DC: Mega Aguilera MD Discharging Provider: Mega Aguilera MD DS: Diagnosis Problem List Completed Was Problem List Reviewed/Reconciled?: Yes Hospital Course Hospital Course Hospital course: Reason for hospitalization: diabetic foot ulcer, MSSA bacteremia Katharine Goldberg is a 74-year-old female with a previous medical history of hypertension, hypothyroidism, poorly controlled insulin-dependent diabetes mellitus, osteoporosis, hemorrhoids, lateral ankle chronic wound who was brought to [facility] ED on 03/17/25 due to general weakness, nausea and vomiting. Patient was admitted for soft tissue infection work up and management. She had chronic leukocytosis (13-14), and has received multiple courses of antibiotics before. Underwent course of hyperbaric oxygenation for the ulcer treatment without effect and underwent work-up for medication induced [place] syndrome. Per chart review, ACTH 9, total cortisol <1 in 01/2025. Work-up for C3-C4c complement deficiency, Hepatitis panel, cryglobulin were negative. She also underwent peripheral angiogram in 2023 by vascular surgery which was negative for arterial stenosis/ arterial disease. Ankle xray No jace cortical bone destruction. MRI negative for osteomyelitis. Blood cultures positive for MSSA bacteremia. ID was consulted. Echo negative for PFO or vegetations. PiCC line was placed 03/27 for 6 week course (until April 05) of ceftriaxone 2 g daily. Their was concern for anorexia by family. Patient was started on Ensure and mirtazapine as appetite stimulant. BP was controlled with Coreg 3.125 BID and amlodipine 10mg. Olmesartan and spironolactone held in setting of hyperkalemia. Family had expressed concern of addiction to pain meds as she self medicates. Patient is now ready for discharge to SNF. Recommendations were given as below. Discharge Recommendations: 1) Follow up at [facility] to resume grafix and wound vac therapy. Call [phone] to reschedule appointment 2) Wound care: -Full thickness DM/surgical wound to right lateral ankle: irrigate well with NS, pat dry, apply silvasorb gel to wound bed. Skin prep and wound edges and secure with allyven dressing daily Negative heel pressure bilaterally -Unstageable to right buttocks, stage 3 to left buttocks: cleanse with NS, pat dry, apply skin prep and cover with allyven dressing daily Side to side repositioning except for meals - Excoriations to left dorsal foot and knee. Generalized dry skin: cleanse with warm water, pat dry, apply skin repair cream daily with bathing. Stop taking olmesartan and spironolactone for hypertension because of high potassium. Resume other previous medications. Follow up with PCP in 1-2 weeks. 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 Continue IV Rocefin 2 g daily until April 05 for infection. Hospital Diagnoses: #MSSA bacteremia #Soft tissue infection #Right lateral malleolus ulcer #Diabetic foot ulcer #Insulin dependent Type 2 diabetes mellitus-poorly controlled #Anorexia #Metabolic acidosis #Electrolyte abnormalities #Hypertension #History of valve disease #Hyperkalemia-resolved #History of depression #Hypothyroidism #Anemia #Iron deficiency The patient's management plan was discussed with my attending physician Dr. Aguilera. Martha Johnson MD, PGY-1 Time Spent with Patient Time attestation: Total time spent providing and/or coordinating discharge services: Time spent: Greater than 30 minutes Exam Vital Signs Temp Pulse Resp BP Pulse Ox O2 Del Method 97.4 F 77 17 112/60 97 Room Air 03/28/25 12:00 03/28/25 12:00 03/28/25 12:03/28/25 12:00 03/28/25 12:03/28/25 08:00 Narrative Exam General: Elderly female, Awake, ill-appearing, lethargic HEENT: Normocephalic, atraumatic, mucous membranes dry. Heart: Regular rate and rhythm, no murmurs. Lungs: Clear to auscultation with no wheezing or crackles. Abdomen: Soft, nondistended, nontender, positive bowel sounds. ?No guarding or rebound tenderness. Neurologic: Alert, no gross neurological deficit, and patient able to move all 4 extremities. Extremities: Pitting 2+ edema of the feet, no ankle edema. Right foot is covered in bandage, right maleolous ulcer stage 2-3 Skin: sacral pressure ulcer stage 2, 3-4 inches long Discharge Plan Plan Patient Disposition: Xfer Skilled Nsg Fac (SNF) Patient condition on transfer: Stable Prescriptions/Referrals Prescriptions/Med Rec: New amlodipine 5 mg Tablet 10 mg PO QDAY 30 Days Qty: 60 1RF ceftriaxone in dextrose,iso-os 2 gram/50 mL Piggyback 2 g IV QDAY Qty: 24 0RF Continued levothyroxine 75 mcg Tablet 75 mcg PO QDAY Januvia 25 mg tablet 25 mg PO DAILY Patient Comments: TAKE 1 TABLET BY MOUTH EVERY DAY atorvastatin 20 mg tablet 20 mg PO QDAY Patient Comments: TAKE 1 TABLET BY MOUTH EVERY DAY metoprolol succinate 25 mg tablet extended release 24 hr 25 mg PO DAILY alendronate 70 mg tablet 70 mg PO QWEEK Patient Comments: TAKE 1 TABLET BY MOUTH ONE TIME PER WEEK acetaminophen 500 mg capsule 500 mg PO Q6H PRN (Reason: pain) Qty: 30 0RF bumetanide 0.5 mg tablet 0.5 mg PO QDAY Patient Comments: TAKE 1 TABLET BY MOUTH EVERY DAY FOR 30 DAYS escitalopram oxalate 10 mg tablet 10 mg PO QDAY Patient Comments: TAKE 1 TABLET BY MOUTH EVERY DAY insulin degludec [Tresiba FlexTouch U-200] 200 unit/mL (3 mL) insulin pen 10 unit SUBCUT QPM Patient Comments: INJECT 4 UNITS BY SUBCUTANEOUS ROUTE PER INSULIN PROTOCOL metformin 500 mg tablet 500 mg PO BID Patient Comments: TAKE 1 TABLET BY MOUTH TWICE A DAY WITH MORNING AND EVENING MEALS magnesium oxide 400 mg (241.3 mg magnesium) tablet 400 mg PO BID Patient Comments: TAKE 1 CAPSULE BY MOUTH TWICE A DAY pantoprazole 40 mg tablet,delayed release (DR/EC) 40 mg PO DAILY Patient Comments: TAKE 1 TABLET BY MOUTH EVERY DAY magnesium hydroxide [Milk of Magnesia] 400 mg/5 mL suspension 20 ml PO TID PRN (Reason: constipation) Qty: 355 0RF Discontinued nicardipine 20 mg capsule 20 mg PO BID Patient Comments: TAKE 1 CAPSULE BY MOUTH TWICE A DAY (NOT COVERED BY INSURANCE) doxycycline hyclate 100 mg tablet 100 mg PO Q12H Patient Comments: TAKE 1 TABLET BY MOUTH TWICE A DAY spironolactone 25 mg tablet 25 mg PO QDAY Patient Comments: TAKE 1 TABLET BY MOUTH EVERY DAY FOR 30 DAYS olmesartan 20 mg tablet 20 mg PO QDAY Patient Comments: TAKE 1 TABLET BY MOUTH EVERY DAY FOR 30 DAYS Referrals: Tiffanie Johnson MD [Referring Provider] - No Primary/Family,Physician [Primary Care Provider] - Ramirez Blum MD [Physician] - Patient/Caregiver Discharge Instructions Other Discharge Activity Instructions:: 1) Follow up at [facility] to resume grafix and wound vac therapy. Call [phone] to reschedule appointment 2) Wound care: -Full thickness DM/surgical wound to right lateral ankle: irrigate well with NS, pat dry, apply silvasorb gel to wound bed. Skin prep and wound edges and secure with allyven dressing daily Negative heel pressure bilaterally -Unstageable to right buttocks, stage 3 to left buttocks: cleanse with NS, pat dry, apply skin prep and cover with allyven dressing daily Side to side repositioning except for meals - Excoriations to left dorsal foot and knee. Generalized dry skin: cleanse with warm water, pat dry, apply skin repair cream daily with bathing. Stop taking olmesartan and spironolactone for hypertension because of high potassium. Resume other previous medications. Follow up with PCP in 1-2 weeks. 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 Continue IV Rocefin 2 g daily until April 05 for infection. Education Materials: Hyperkalemia Dc, ED Bacteremia, Suspected (Adult), ED Diabetic Foot Care Print Language: Nicaraguan Stand Alone Forms: Amanda Award Info., Patient Portal Info Letter Discharge Order Discharge Orders: Discharge (Routine); Ordered 03/28/25 Ordered By: Martha Johnson Quality Discharge Quality Measures VTE prophylaxis Attestestation Attestation I have examined the patient, reviewed labs and imaging findings, discussed the case with the resident(s), and reviewed entered orders. I agree with the plan of care as outlined in this note. Continue IV antibiotics for bacteremia. Continue to monitor chronic hyponatremia outpatient. Time Spent: [address] Willy MD
== END 2025-03-28 14:40 | disposition skilled nursing facility (03) | DRG 637 ==
LOC: SERX 22:21 → SERHOLD 03-17 00:23 → S3SX 03-17 03:44
PROVIDERS: Admitting Provider Student in an Organized Health Care Education/Training Program; Emergency Provider Emergency Medicine; Visit Provider Student in an Organized Health Care Education/Training Program
DX: E11.621 Type 2 diabetes mellitus with foot ulcer (principal); L89.323 Pressure ulcer of left buttock, stage 3; E87.20 Acidosis, unspecified; L97.319 Non-pressure chronic ulcer of right ankle with unspecified severity; R78.81 Bacteremia; L08.9 Local infection of the skin and subcutaneous tissue, unspecified; E87.5 Hyperkalemia; L89.152 Pressure ulcer of sacral region, stage 2; B95.61 Methicillin susceptible Staphylococcus aureus infection as the cause of diseases classified elsewhere; L89.310 Pressure ulcer of right buttock, unstageable; R63.0 Anorexia; E11.21 Type 2 diabetes mellitus with diabetic nephropathy; Z66 Do not resuscitate; F32.A Depression, unspecified; I10 Essential (primary) hypertension; E03.9 Hypothyroidism, unspecified; M81.0 Age-related osteoporosis without current pathological fracture; D50.9 Iron deficiency anemia, unspecified; E78.00 Pure hypercholesterolemia, unspecified; Z90.710 Acquired absence of both cervix and uterus; Z68.21 Body mass index [BMI] 21.0-21.9, adult; Z79.4 Long term (current) use of insulin; Z79.84 Long term (current) use of oral hypoglycemic drugs; Z79.890 Hormone replacement therapy; Z79.899 Other long term (current) drug therapy; Z88.5 Allergy status to narcotic agent; Z88.0 Allergy status to penicillin
CPT/HCPCS: 36415; 36600; 70450; 71045; 71250; 73600; 73721; 74176; 80053; 80202; 81001; 82010; 82024; 82150; 82248; 82533; 82803; 83036; 83540; 83550; 83605; 83690; 83735; 83880; 84100; 84132; 84145; 84439; 84443; 84484; 85014; 85018; 85025; 85610; 85652; 85730; 86140; 86850; 86900; 86901; 86923; 87040; 87077; 87081; 87186; 87400; 87811; 93005; 93225; 93925; 96361; 96365; 96367; 97162; 99285; 99308; C1751; C1894; J0689; J0692; J0696; J1642; J1643; J1815; J1885; J3370; J3475; J3490; J7030; J7050; P9016; A9270

== ENCOUNTER → 2025-06-13 | Outpatient (CLI) | payer MEDICARE, BC, SELFPAY ==
--- NOTE | 2025-06-13 11:55 | EKG_ITS ---
[facility] Test Date: 2025-06-13 Pat Name: DANYEL FRAGOSO Department: Room: - Gender: Female Assembler: ALLISON : 1950 Requested By: Sergei Cochran Order Number: [id number] Reading MD: Sergei Cochran Measurements Intervals [place] Rate: 99 P: -6 [place]: 121 QRS: 6 QRSD: 71 T: 177 QT: 349 QTc: 448 Interpretive Statements SINUS RHYTHM ST DEVIATION AND MODERATE T-WAVE ABNORMALITY, CONSIDER ANTEROLATERAL ISCHEMIA [-0.1+ mV T WAVE IN V3-V6] Compared to ECG 03/16/2025 20:13:39 T-wave abnormality now present Possible ischemia now present Short [place] interval no longer present ST (T wave) deviation no longer present /store/S0/[id number].pdf
--- NOTE | 2025-06-13 12:04 | XR_ITS ---
Examination: AP lateral chest 2 views TECHNIQUE: Sitting portable AP lateral chest 2 views Exam date and time: June 13, 2025 1217 hours INDICATIONS: Chest pain today. FINDINGS: Minimal prominence left ventricle No pneumonia or pulmonary edema Suspicious for 8 mm pulmonary nodule right upper lobe IMPRESSION: Consider CT chest without contrast follow-up to exclude 8mm pulmonary nodule right upper lobe
[2025-06-13 12:29] LABS: Collection Type, Urine Clean Catch
[2025-06-13 12:55] LABS: Basophils # (Auto) 0.1 Thou/mm3 (0.0-0.2); Basophils % (Auto) 1 % (0-2.5); Eosinophils # (Auto) 0.2 Thou/mm3 (0.0-0.5); Eosinophils % (Auto) 1 % (0-10); Hematocrit 29.9 % (36.0-46.0); Hemoglobin 10.1 g/dL (12.0-16.0); Immature Granulocytes Auto 0.15 Thou/mm3 (0.00-0.00); Lymphocytes # (Auto) 4.5 Thou/mm3 (1.0-4.8); Lymphocytes % (Auto) 35 % (10-50); Mean Corpuscular HGB Conc 33.8 g/dl (31.0-37.0); Mean Corpuscular Hemoglobin 31.5 pg (25.0-35.0); Mean Corpuscular Volume 93 fL (80-100); Monocytes # (Auto) 0.8 Thou/mm3 (0.0-0.8); Monocytes % (Auto) 6 % (0-12); Neutrophils # (Auto) 7.1 Thou/mm3 (1.8-7.7); Neutrophils % (Auto) 55 % (37-80); Nucleated Red Blood Cell # 0.00 Thou/mm3 (0.00-0.00); Nucleated Red Blood Cell % 0 /100 WBC (0); Platelet Count 653 Thou/mm3 (140-440); RDW Standard Deviation 58.6 fL (36.4-46.3); Red Blood Count 3.21 Miln/mm3 (4.00-5.20); White Blood Count 12.9 Thou/mm3 (3.6-11.0)
[2025-06-13 13:01] LABS: Glucose Estimated Average 108 mg/dL (80-131); Hemoglobin A1C 5.4 % Hgb (4.8-6.0)
[2025-06-13 13:03] LABS: INR 1.2 (0.9-1.3); Partial Thromboplastin Time 32.9 Seconds (22.0-36.0); Prothrombin Time 12.9 Seconds (9.0-12.2)
[2025-06-13 13:26] LABS: Alanine Aminotransferase 17 U/L (10-49); Albumin, Serum 3.3 gm/dL (3.4-4.8); Albumin/Globulin Ratio 1.0 (1.2-2.2); Alkaline Phosphatase 105 U/L (46-116); Anion Gap 14 (7-16); Aspartate Amino Transferase 41 U/L (0-34); BUN/Creatinine Ratio 11 Ratio (12-20); Bilirubin,Total 0.3 mg/dL (0.3-1.2); Blood Urea Nitrogen 8 mg/dL (9-23); Calcium 7.8 mg/dL (8.3-10.6); Calcium (Corrected) 8.4 mg/dL (8.5-10.1); Carbon Dioxide 18.1 mMol/L (20.0-31.0); Chloride 101 mMol/L (98-107); Creatinine (Component) 0.7 mg/dL (0.6-1.3); Globulin 3.4 gm/dL (2.3-3.5); Glucose 162 mg/dL (74-106); Osmolality,Calculated 268 (275-295); Phosphorous 3.1 mg/dL (2.4-5.1); Potassium 4.3 mMol/L (3.4-5.1); Sodium 133 mMol/L (136-145); Total Protein 6.7 gm/dL (5.7-8.2); Uric Acid 7.3 mg/dL (3.1-7.8); eGFR > 60 See Note
[2025-06-13 13:27] LABS: Magnesium 0.7 mg/dL (1.6-2.6)
[2025-06-13 13:38] LABS: Bacteria,Urine 2+; Bilirubin,Urine Negative (Negative); Blood,Urine Negative (Negative); Color,Urine Lt-Yellow (Lt Yel-Yel); Glucose, Urine Negative (Negative); Hyaline Casts,Urine < 1 /hpf (0-1); Ketones,Urine Negative (Negative); Leukocyte Esterase,Urine Positive (Negative); Nitrite,Urine Negative (Negative); PH,Urine 6.0 (5.0-7.0); Protein,Urine Negative (Neg - Trace); RBC,Urine 8 /hpf (0-3); Specific Gravity,Urine 1.008 (1.001-1.035); Squamous Epithelial Cell,Urine 1 /hpf (0-5); Urobilinogen,Urine Negative mg/dL (0.0-1.0); WBC,Urine 31 /hpf (0-5)
[2025-06-13 13:40] LABS: Creatinine MALB Rnd Ur 19 mg/dL (30-125); Microalbumin Creat Ratio 21 mg/gCrea (<30); Microalbumin, Random Urine 4 mg/L (0-300)
[2025-06-13 13:41] LABS: Clarity,Urine Hazy (Clear/Hazy)
[2025-06-13 18:07] LABS: Path Review Blood Smear Sent to Pathologist
== END | disposition home or self-care (01) ==
LOC: COPL 10:41 → CDIM 10:59 → SDIM 11:02 → COPL 13:35
PROVIDERS: Specialist; PCP Registered Nurse; Referring Provider Internal Medicine Cardiovascular Disease; Visit Provider Radiology Diagnostic Radiology
DX: R07.89 Other chest pain (principal); Z01.810 Encounter for preprocedural cardiovascular examination; I20.89 Other forms of angina pectoris
CPT/HCPCS: 36415; 71046; 80053; 81001; 82043; 82570; 83036; 83735; 84100; 84550; 85025; 85610; 85730; 93005

== ENCOUNTER → 2025-06-21 | Outpatient (CLI) | payer MEDICARE, BC, SELFPAY ==
--- NOTE | 2025-06-21 16:02 | XR_ITS ---
EXAMINATION: Cervical spine, 5 views Technique: Cervical spine AP, AP odontoid, lateral, bilateral obliques, 5 views Exam date and time: June 21, 2025 1604 hours INDICATIONS: Neck pain several years. FINDINGS: Severe osteopenia No cervical fracture. Intact odontoid. Reversal normal cervical lordosis. Advanced degenerative disc disease C5-C6, C6-C7 with advanced bilateral neural foraminal stenosis Soft tissue vascular carotid calcification IMPRESSION: Advanced degenerative disc disease C5-C6, C6-C7
== END | disposition home or self-care (01) ==
PROVIDERS: PCP Family Medicine; Referring Provider Specialist; Visit Provider Specialist
DX: M50.322 Other cervical disc degeneration at C5-C6 level (principal)
CPT/HCPCS: 72050

== ENCOUNTER → 2025-11-27 | Outpatient (CLI) | payer MEDICARE, BC, SELFPAY ==
[2025-11-27 13:58] LABS: Collection Type, Urine Clean Catch; RBC,Urine 0 /hpf (0-3); Squamous Epithelial Cell,Urine 0 /hpf (0-5)
[2025-11-27 14:55] LABS: Bilirubin,Urine Negative (Negative); Blood,Urine Negative (Negative); Clarity,Urine Turbid (Clear/Hazy); Color,Urine Lt-Yellow (Lt Yel-Yel); Glucose, Urine Negative (Negative); Ketones,Urine Negative (Negative); Leukocyte Esterase,Urine Positive (Negative); Nitrite,Urine Positive (Negative); PH,Urine 6.5 (5.0-7.0); Protein,Urine Negative (Neg - Trace); Specific Gravity,Urine 1.013 (1.001-1.035); Urobilinogen,Urine Negative mg/dL (0.0-1.0); WBC,Urine 12 /hpf (0-5)
== END | disposition home or self-care (01) ==
LOC: SLDO 13:45
PROVIDERS: Referring Provider Student in an Organized Health Care Education/Training Program; Visit Provider Student in an Organized Health Care Education/Training Program
DX: I10 Essential (primary) hypertension (principal); N32.9 Bladder disorder, unspecified
CPT/HCPCS: 81001; 87077; 87086; 87186